=== PATIENT | female | born 1945 | race Caucasian/White ===

== ENCOUNTER 2018-05-20 22:14 | Inpatient (IN) | payer SELFPAY ==
[2018-05-20 22:16] VITALS: BP 116/84; PULSE 108; RESP 18; TEMP 36.6; O2SAT 100; BMI 34.4
[2018-05-20 22:20] VITALS: RESP 18
--- NOTE | 2018-05-20 22:47 | EKG12_ITS ---
Test Reason : N/V Blood Pressure : / mmHG Vent. Rate : 096 BPM Atrial Rate : 277 BPM P-R Int : 000 ms QRS Dur : 086 ms QT Int : 328 ms P-R-T Axes : 000 021 -81 degrees QTc Int : 414 ms Atrial fibrillation T wave abnormality, consider inferior ischemia Abnormal ECG Confirmed by WILLIAM PEREZ, LEONOR ([id number]), science editor KACEY RUELAS ([id number]) on 05/23/2018 2:20:04 PM Referred By: KAREN Confirmed By:LEONOR THOMAS MD
--- NOTE | 2018-05-20 22:50 | ED.RN ---
NO OLD EKGS IN MUSE
[2018-05-20] MEDS: 0.9% Normal Saline 1,000 ML 1000 ML IV (22:55)
[2018-05-20 23:07] LABS: Absolute Lymphocyte Count 1.71 X10^3/ul (0.83-4.51); Absolute Neutrophil Count 6.8 X10^3/uL (2.0-7.7); Basophil# 0.01 X10^3/uL; Basophil% 0.1 % (0-1); Eosinophil# 0.01 X10^3/uL; Eosinophils% 0.1 % (0-5); Hematocrit 23.2 % (37-47); Hemoglobin 7.8 g/dl (12.0-15.0); Lymphocyte # 1.71 X10^3/ul (4.0); Lymphocyte % 18.8 % (19-41); Mean Corp Hgb Conc 33.6 g/gl (32-36); Mean Corpuscular Hgb 30.1 pg (27.0-32.0); Mean Corpuscular Volume 89.6 fL (81-99); Mean Platelet Vol. 9.8 fl (6.2-12.0); Monocyte# 0.57 X10^3/uL; Monocyte% 6.3 % (0-10); Neutrophil # 6.79 X10^3/uL (2.7-7.7); Neutrophil % 74.5 % (47-70); Platelet Count 137 K/mm3 (150-450); RBC Distribution Width SD 49.3 fl (35.1-43.9); Red Blood Count 2.59 M/mm3 (4.2-5.4); White Blood Count 9.1 K/mm3 (4.4-11.0)
[2018-05-20 23:12] LABS: POSITIVE COUNT NO; POSITIVE DIFFERENTIAL NO; POSITIVE MORPHOLOGY NO
[2018-05-20 23:27] LABS: Mucous, Urine 0 SEEN /hpf (<or=2+); Red Blood Cells-Urine 0 SEEN /hpf (0-5)
[2018-05-20 23:30] LABS: Color, Urine Straw (Yellow); Glucose, Dipstick Normal (Normal); Ketone-Dipstick Negative (Negative); Leukocyte Esterase-Dipstick 25 /ul (Negative); Nitrite-Dipstick Negative (Negative); Occult Blood-Urine 10 /ul (Negative); Protein-Dipstick Negative (Negative); Specific Gravity, Urine 1.005 (1.002-1.030); Urine Bilirubin Dipstick Negative (Negative); Urine Clarity Clear (Clear); Urine Urobilinogen Normal (Normal); Urine pH 6.5 (5.0 - 8.0)
[2018-05-20 23:35] LABS: Bacteria RARE /hpf (None Seen); Squamous Epithelial Cells - UA 0-5 SEEN /hpf (5-10); White Blood Cells 0-5 SEEN /hpf (0-5)
--- NOTE | 2018-05-20 23:38 | RAD_ITS ---
HISTORY: patient has had nausea/vomiting/diarrhea and weakness for the past 2 days. patient called ems for low blood pressure. EXAM: XR Chest 2 Views: COMPARISON: None FINDINGS: AP chest with EKG leads in place. Borderline cardiomegaly. On the frontal view, right midlung mild linear opacity compatible with subsegmental atelectasis. No corresponding abnormality seen on the lateral view. No vascular congestion or pulmonary consolidation. No pleural effusion or pneumothorax. Atherosclerotic thoracic aorta. RAD/Chest PA and Lateral IMPRESSION: 1. Right midlung mild subsegmental atelectasis. 2. No CHF or pneumonia. at 0038 Reported and signed by: Noé Dunne MD Electronically Signed: Noé Dunne, at 0:36 EST Tel , Service support ,
[2018-05-20 23:40] LABS: ALB/GLOB Ratio 0.9 RATIO (0.9-2.4); AST(SGOT) 17 U/L (15-37); Alanine Aminotransfer ALT/SGPT 17 U/L (13-56); Albumin, Serum 2.7 g/dL (3.2-5.0); Alkaline Phosphatase 74 U/L (45-117); Anion Gap 9 (5-15); BUN 162 mg/dL (7-18); BUN/Creat Ratio 120.9 RATIO (10-20); Chloride 102 mmol/L (98-107); Creatinine, Serum 1.34 mg/dL (0.55-1.02); EST Glomerular Filtration Rate 41 mL/min (>60); Est Glom Filt Rate - Afr Amer 50 mL/min (>60); Estimated Creatinine Clearance 29.48 ml/min; Glucose 156 mg/dL (74-106); Lipase 454 U/L (73-393); Potassium 3.6 mmol/L (3.5-5.1); Protein, Total 5.7 g/dL (6.4-8.2); Sodium Level 138 mmol/L (136-145)
--- NOTE | 2018-05-20 23:43 | ED.RN ---
DR JONES NOTIFIED OF BUN RESULTS
--- NOTE | 2018-05-20 23:56 | CT_ITS ---
HISTORY: PT STATED N/V/D AND ABDOM PAIN X2 DAYS TECHNIQUE: Helically acquired images were obtained of the abdomen and pelvis without oral or IV contrast as per renal stone protocol. A radiation dose optimization technique was used for this scan. IV Contrast dosage and agent: None. Oral contrast: None. COMPARISON: None FINDINGS: Lower chest: Cardiomegaly with multichamber cardiac enlargement. No pericardial effusion or pleural effusion. The gallbladder contains numerous gallstones of varying size. No biliary dilatation identified. Limited non-infusion exam. The liver and pancreas show no CT abnormality. Spleen is normal in size and shows multiple small calcified granulomas. Both kidneys are normal in position. No renal or ureteral calculi and no hydronephrosis or hydroureter. The adrenal glands are not enlarged. Abdominal aorta is atherosclerotic and normal in caliber. No ascites or retroperitoneal lymphadenopathy. GI tract: No obstruction. Negative appendix. Diverticulosis coli. Pelvis: The uterus is normal in size. The pelvis shows no free fluid or lymphadenopathy. Urinary bladder appears normal. Bones: No acute osseous abnormality. Ventral abdominal wall: Chronic diastases recti with midline ventral hernia. CT/Abdomen/Pelvis without Cont IMPRESSION: 1. Cholelithiasis. No biliary dilatation or acute disease seen. 2. Cardiomegaly with multichamber enlargement. 3. Chronic diastases recti and additional chronic changes, as above. Individualized dose optimization techniques were used for this CT. at 0052 Reported and signed by: Noé Dunne MD Electronically Signed: Noé Dunne, at 0:50 EST Tel , Service support ,
[2018-05-21] VITALS (62 sets, daily range): BP systolic 64–114; BP diastolic 47–92; PULSE 98–144; RESP 12–25; TEMP 36.3–37.7; O2SAT 97–100; BMI 35.0; BMI 35.1
--- NOTE | 2018-05-21 00:31 | ED.DCSUM_ITS ---
- ER Visit Summary Date of Service: 05/21/18 Chief Complaint: Diarrhea lightheaded and weak. History of Present Illness: The patient is a 72 F who presents with generalized weakness. She states that since yesterday she has felt lightheaded weak and generally not well. She did have some diarrhea yesterday she states maybe about 10 episodes but only one today. She denies any nausea or vomiting. She complains of mild intermittent diffuse abdominal aching which is only mild. She has had some mild rhinorrhea but no other infectious symptoms. She denies fevers chest pain shortness of breath cough. She does complain of some muscle and joint aches. No history of prior similar symptoms. Physical Examination: Heart rate 108 vitals otherwise normal Moist mucous membranes Heart irregularly irregular and slightly tachycardic Lungs are clear Abdomen soft nontender nondistended Alert Test Results: EKG shows atrial fibrillation at a rate of 96. Labs returned notable for hemoglobin 7.8 platelets 137. BUN is 162 with a creatinine of 1.34. Lipase 454. Urinalysis unremarkable. INR 5.0. Chest x-ray shows mild atelectasis no CHF or pneumonia.. CT the abdomen and pelvis shows cholelithiasis and cardiomegaly and chronic changes no acute process. Emergency Department Course and Treatment: Laboratory workup initially obtained as above. With severely elevated BUN and anemia this was concerning for GI bleed. Patient had not noted any blood in her stool but did note that her stool appeared dark yesterday. Rectal exam showed grossly melanotic stool. 2 units of packed red blood cells were ordered. Patient got up to the bedside commode and became pale diaphoretic and had a near syncopal episode. Her heart rate increased to 140s and she developed hypotension. This improved after she was laid back in bed. IV vitamin K and FFP were ordered at this point as well. Patient was also started on a Protonix infusion and given a bolus. I spoke to Dr. Salgado and Dr. Elaine and patient will be admitted under the hospitalist service to the ICU. Discussed with the patient and family the need for anticoagulation reversal and associated risks and benefits. Treatment Plan: [] Disposition: Admit Impression: Upper GI bleed Anemia Supratherapeutic INR This note was generated with [employer] dictation software. It may contain incorrect words, spelling, and punctuation that were not noted in review of the chart prior to signing ED Disposition - Plan for ED Patient: Chief Complaint: Nausea/Vomiting/Diarrhea Referrals: Austin Singh DO [Primary Care Provider] -
[2018-05-21 00:57] LABS: Prothrombin Time (Protime)PT. 47.2 SECONDS (11.7-14.9)
--- NOTE | 2018-05-21 01:02 | ED.RN ---
LAB CALLED CRITICAL RESULT OF INR OF 5.[address] JONES NOTIFIED, NFO
--- NOTE | 2018-05-21 01:45 | PCM.HP.STD ---
Problem List (1) Acute blood loss anemia Status: Acute History of Present Illness Date of Admission: 05/21/18 Chief Complaint: weakness The patient is a 72 year old F with a significant history of hypertension; CHF; Afib on Coumadin who presented with weakness. Associated with her symptoms is lightheadedness that increases with getting up. Two days before her admission she had diarrhea with as many as 10 stools or more. A day before admission she had only one bowel movement. Her stools are black. She has nausea and a one-time episode of vomiting. Her vomitus was black. She denies any hematochezia. At the emergency department her blood pressure dropped significantly upon standing up. At emergency department her INR was 5. She received 10 mg IV vitamin K and was started on Protonix bolus and drip; 2 units of packed red blood cells and FFP was ordered from the emergency department. Emergency department doctor reported talking to Dr. Salgado, General Surgeon and Dr. Elaine, Customer Associate and patient was accepted for admission. Patient reports that the last time that she use NSAIDs was about 2 weeks ago. She denies taking aspirin. She denies any history of peptic ulcer disease. Past Medical History Past Medical History (Chronic Problems): Chronic Problems (Last Reviewed 12/10/17 @ 16:42 by Raghu Lee MD) Chronic diastolic (congestive) heart failure (Chronic) Hypertension (Chronic) Nonrheumatic mitral (valve) insufficiency (Chronic) Nonrheumatic tricuspid (valve) insufficiency (Chronic) Atrial enlargement, bilateral (Chronic) Dilated cardiomyopathy (Chronic) Atrial fibrillation (Chronic) Medical History: Medical History (Last Reviewed 05/21/18 @ 03:00 by Brayan Kearney MD) Chronic diastolic (congestive) heart failure (Chronic) I50.32 Hypertension (Chronic) I10 Nonrheumatic mitral (valve) insufficiency (Chronic) I34.0 Nonrheumatic tricuspid (valve) insufficiency (Chronic) I36.1 Atrial enlargement, bilateral (Chronic) I51.7 Dilated cardiomyopathy (Chronic) I42.0 Atrial fibrillation (Chronic) I48.91 Allergies No Known Allergies Allergy (Verified 05/20/18 22:26) Home Medications: Ambulatory Orders Medication Instructions Recorded metoprolol tartrate 100 mg tablet 100 mg PO BID 06/10/17 warfarin 2 mg tablet 4 mg PO .COMPLEX 06/10/17 spironolactone 50 mg tablet 50 mg PO QDAY #90 tab 12/10/17 furosemide 40 mg tablet 40 mg PO BID tab 05/20/18 Surgical History: Surgical History (Last Reviewed 05/21/18 @ 03:00 by Brayan Kearney MD) varicose vein surgery (Resolved) Lives: Spouse/ Significant Other Smoking Status: Never smoker - *Family History Maternal Family History: Family History (Last Updated 05/21/18 @ 03:01 by Brayan Kearney MD) Father CAD (coronary artery disease) Sudden cardiac Mother CVA (cerebral vascular accident) Paternal Family History: Family History (Last Updated 05/21/18 @ 03:01 by Brayan Kearney MD) Father CAD (coronary artery disease) Sudden cardiac Mother CVA (cerebral vascular accident) Review of Systems Constitutional: Denies: Chills, Fever, Weight Change HEENT: Denies: Head Aches, Sinus Congestion, Sinus Drainage Cardiovascular: Denies: Chest Pain, Palpitations Respiratory: Denies: Cough, Shortness of breath at rest, Sputum production Gastrointestinal: Reports: Abdominal Pain, Nausea, Melena, Vomiting Genitourinary: Denies: Dysuria Musculoskeletal: Denies: Joint Pain, Joint Tenderness Skin: Denies: Rash, Wounds Neurological: Denies: Numbness, Tingling, Focal weakness Psychiatric: Denies: Anxiety, Depression, Homicidal Ideations, Suicidal Ideations Hematologic/ Lymphatic: Denies: Easy Bruising, Easy Bleeding VTE Information - Inpt Only VTE Present on Admission: No VTE Mechan Device Prophylaxis: SCD's VTE Pharm Prophylaxis ordered?: No Patient Problems: Active and Suspected Problems (Last Reviewed 12/10/17 @ 16:42 by Raghu Lee MD) Acute blood loss anemia (Acute) - Physical Exam General: Alert, Oriented x3, Cooperative HEENT: Atraumatic, PERRLA, EOMI, Normocephalic Neck: Supple, No JVD, Negative Carotid Bruits Lungs: Clear to auscultation, Normal air movement Cardiovascular: No murmurs, Irregular Rate Abdomen: Bowel Sounds Present, Soft, Non Tender, - - Rectal exams showed no masses or gross bleeding. Melena Extremities: No edema, Capillary Refill Less than 3 Seconds Skin: - - left lower leg with erythema and scales (Patient states it is chronic) Musculoskeletal: No Tenderness to Palpation of Joints or Extremities Neurological: Cranial nerves II-XII grossly intact Psych/Mental Status: Normal Affect, Appropriate Vital Signs Temp Pulse Resp BP Pulse Ox 98 F 101 H 19 H 109/63 100 05/20/18 22:16 05/21/18 01:41 05/21/18 01:41 05/21/18 01:41 05/21/18 01:41 Oxygen Delivery Method Room Air Weight: 82.663 kg Body Mass Index (BMI) 34.4 Laboratory Tests Past 24 Hrs 05/20/18 05/20/18 05/20/18 22:25 22:25 22:25 WBC 9.1 RBC 2.59 L Hgb 7.8 L Hct 23.2 L MCV 89.6 MCH 30.1 MCHC 33.6 RDW 15.0 H RDW Differential 49.3 H Plt Count 137 L MPV 9.8 Immature Gran % (Auto) 0.200 Neut % (Auto) 74.5 H Lymph % (Auto) 18.8 L [place] % (Auto) 6.3 Eos % (Auto) 0.1 Baso % (Auto) 0.1 Absolute Neuts (auto) 6.8 Absolute Lymphs (auto) 1.71 Total Counted Not Reportable PT 47.2 H INR 5.0 H* Sodium 138 Potassium 3.6 Chloride 102 Carbon Dioxide 27.0 Anion Gap 9 BUN 162 H* Creatinine 1.34 H Estim Creat Clear Calc 29.48 Est GFR (MDRD) Af Amer 50 L Est GFR (MDRD) Non-Af 41 L BUN/Creatinine Ratio 120.9 H Glucose 156 H Calcium 8.0 L Total Bilirubin 0.80 AST 17 ALT 17 Alkaline Phosphatase 74 Total Protein 5.7 L Albumin 2.7 L Globulin 3.0 Albumin/Globulin Ratio 0.9 Lipase 454 H Urine Color Urine Clarity Urine pH Ur Specific [place] Urine Protein Urine Glucose (UA) Urine Ketones Urine Occult Blood Urine Nitrite Urine Bilirubin Urine Urobilinogen Ur Leukocyte Esterase Urine RBC Urine WBC Ur Squamous Epith Cells Urine Bacteria Urine Mucus Blood Type Antibody Screen Crossmatch 05/20/18 05/20/18 23:23 23:58 WBC RBC Hgb Hct MCV MCH MCHC RDW RDW Differential Plt Count MPV Immature Gran % (Auto) Neut % (Auto) Lymph % (Auto) [place] % (Auto) Eos % (Auto) Baso % (Auto) Absolute Neuts (auto) Absolute Lymphs (auto) Total Counted PT INR Sodium Potassium Chloride Carbon Dioxide Anion Gap BUN Creatinine Estim Creat Clear Calc Est GFR (MDRD) Af Amer Est GFR (MDRD) Non-Af BUN/Creatinine Ratio Glucose Calcium Total Bilirubin AST ALT Alkaline Phosphatase Total Protein Albumin Globulin Albumin/Globulin Ratio Lipase Urine Color Straw Urine Clarity Clear Urine pH 6.5 Ur Specific [place] 1.005 Urine Protein Negative Urine Glucose (UA) Normal Urine Ketones Negative Urine Occult Blood 10 H Urine Nitrite Negative Urine Bilirubin Negative Urine Urobilinogen Normal Ur Leukocyte Esterase 25 H Urine RBC 0 SEEN Urine WBC 0-5 SEEN Ur Squamous Epith Cells 0-5 SEEN Urine Bacteria RARE Urine Mucus 0 SEEN Blood Type A NEGATIVE Antibody Screen NEGATIVE Crossmatch See Detail Assessment/Plan All Active Problems (Last Reviewed 12/10/17 @ 16:42 by Rgahu Lee MD) Acute blood loss anemia (Acute) varicose vein surgery (Resolved) The patient is a 72 year old F with a significant history of hypertension; CHF; Afib on Coumadin with acute blood loss anemia and severely elevated BUN consistent with likely upper GI bleed. Acute blood loss anemia Admitted to the ICU. With elevated BUN; and melena with probable coffee-ground emesis this is likely upper GI blood loss. Received Protonix bolus and drip at emergency department. Protonix continued. H&H and INR in a.m. about which time packed red blood cells and FFP would have finished infusing. Trend blood pressures. Home laxis; Aldactone; metoprolol and Coumadin on hold. Occult blood for stools ordered. Customer Associate consult to optimize management. General surgery consult to evaluate for endoscopy. Elevated creatinine Differential diagnosis include acute GI bleed; CKD; pre-renal ROSANA due to relative hypotension from acute GI bleed. Management of acute blood loss as above. Trend BMP. Hypertension Metoprolol, Aldactone and Lasix held due to relative hypotension secondary to bleeding. Trend blood pressures. A. fib Patient controlled A. fib. Metoprolol and warfarin held due to relative hypotension and bleeding. CHF Aldactone and Lasix on hold secondary to relative hypotension from acute blood loss anemia. DVT prophylaxis No chemical thromboprophylaxis due to bleeding SCD ordered. Code Visit Inpatient E&M: 52385 Init Hosp L3
[2018-05-21] MEDS: 0.9% Normal Saline 1,000 ML 100 ML IV (04:30)
[2018-05-21 06:05] LABS: Hemoglobin 7.3 g/dl (12.0-15.0)
[2018-05-21 08:19] LABS: Anion Gap 9 (5-15); BUN 131 mg/dL (7-18); BUN/Creat Ratio 109.2 RATIO (10-20); Chloride 111 mmol/L (98-107); EST Glomerular Filtration Rate 47 mL/min (>60); Est Glom Filt Rate - Afr Amer 57 mL/min (>60); Estimated Creatinine Clearance 32.92 ml/min; Glucose 146 mg/dL (74-106); Potassium 3.6 mmol/L (3.5-5.1); Sodium Level 145 mmol/L (136-145)
[2018-05-21] MEDS: Lactated Ringers 1,000 ML 999 ML IV (09:31)
[2018-05-21] MEDS: fentaNYL 100 MCG/2 ML Ampul 25 MCG IV ×2 (09:31→22:39)
--- NOTE | 2018-05-21 10:01 | PCM.CONS.GEN ---
Problem List (1) Acute blood loss anemia Status: Acute (2) GI bleed Status: Acute Qualifiers: GI bleed type/associated pathology: unspecified gastrointestinal hemorrhage type Qualified Code(s): K92.2 - Gastrointestinal hemorrhage, unspecified Reason for Consult Date of Consultation: 05/21/18 History of Present Illness: The patient is a 72 year old F with a significant history of hypertension; CHF; Afib on Coumadin who presented with weakness. Associated with her symptoms is lightheadedness that increases with getting up. Two days before her admission she had diarrhea with as many as 10 stools or more. A day before admission she had only one bowel movement. Her stools are black. She has nausea and a one-time episode of vomiting. Her vomitus was black. She denies any hematochezia. At the emergency department her blood pressure dropped significantly upon standing up. At emergency department her INR was 5. She received 10 mg IV vitamin K and was started on Protonix bolus and drip; 2 units of packed red blood cells and FFP was ordered from the emergency department. While in the ICU she is received FFP as well as other packed red blood cells. She remains tachycardic and slightly hypotensive. She is complaining of some epigastric abdominal pain. She has not had any bowel movements while in the intensive care unit. We do not have any repeat lab work 4 hours her hemoglobin and INR. Past Medical History Past Medical History (Chronic Problems): Chronic Problems (Last Reviewed 05/21/18 @ 10:06 by Chester Salgado MD) Chronic diastolic (congestive) heart failure (Chronic) Hypertension (Chronic) Nonrheumatic mitral (valve) insufficiency (Chronic) Nonrheumatic tricuspid (valve) insufficiency (Chronic) Atrial enlargement, bilateral (Chronic) Dilated cardiomyopathy (Chronic) Atrial fibrillation (Chronic) Medical History: Medical History (Last Reviewed 05/21/18 @ 10:06 by Chester Salgado MD) Chronic diastolic (congestive) heart failure (Chronic) I50.32 Hypertension (Chronic) I10 Nonrheumatic mitral (valve) insufficiency (Chronic) I34.0 Nonrheumatic tricuspid (valve) insufficiency (Chronic) I36.1 Atrial enlargement, bilateral (Chronic) I51.7 Dilated cardiomyopathy (Chronic) I42.0 Atrial fibrillation (Chronic) I48.91 Allergies No Known Allergies Allergy (Verified 05/20/18 22:26) Home Medications: Ambulatory Orders Medication Instructions Recorded metoprolol tartrate 100 mg tablet 100 mg PO BID 06/10/17 warfarin 2 mg tablet 4 mg PO .COMPLEX 06/10/17 spironolactone 50 mg tablet 50 mg PO QDAY #90 tab 12/10/17 furosemide 40 mg tablet 40 mg PO BID tab 05/20/18 Surgical History: Surgical History (Last Reviewed 05/21/18 @ 10:06 by Chester Salgado MD) varicose vein surgery (Resolved) Lives: Spouse/ Significant Other Smoking Status: Never smoker - *Family History Maternal Family History: Family History (Last Updated 05/21/18 @ 03:01 by Brayan Kearney MD) Father CAD (coronary artery disease) Sudden cardiac Mother CVA (cerebral vascular accident) Paternal Family History: Family History (Last Updated 05/21/18 @ 03:01 by Brayan Kearney MD) Father CAD (coronary artery disease) Sudden cardiac Mother CVA (cerebral vascular accident) Review of Systems Constitutional: Denies: Chills, Fever, Weight Change Eyes: Denies: Blurred vision, Pain, Redness, Vision Change HEENT: Denies: Dysphasia, Ear Pain, Eye Pain, Head Aches, Hearing Changes, Sore Throat Cardiovascular: Denies: Chest Pain, Chest Pressure, Chest Tightness, Palpitations Respiratory: Denies: Cough, Hemoptysis, Shortness of breath at rest, Shortness of breath upon exertion, Wheezing Gastrointestinal: Reports: Abdominal Pain, Melena Genitourinary: Denies: Dysuria, Frequency, Hematuria, Urgency Musculoskeletal: Denies: Joint Pain Patient Problems: Active and Suspected Problems (Last Reviewed 05/21/18 @ 10:06 by Chester Salgado MD) Acute blood loss anemia (Acute) GI bleed (Acute) - Physical Exam General: Alert, Oriented x3, - - Patient does have a pale look about her. Oral: Moist Mucosa Lungs: Clear to auscultation Cardiovascular: Regular rate, Tachycardic Abdomen: Bowel Sounds Present, Soft, Tender - He does have some minimal tenderness in the upper abdominal area. But there is no rebound guarding and peritoneal signs identified Extremities: No clubbing, No cyanosis, No edema Skin: No rashes, No breakdown Vital Signs Temp Pulse Resp BP Pulse Ox 98.8 F 131 H 17 94/54 L 100 05/21/18 09:26 05/21/18 09:26 05/21/18 09:26 05/21/18 09:26 05/21/18 09:26 Oxygen Delivery Method Room Air Weight: 185 lb 10.067 oz Body Mass Index (BMI) 35.0 Intake and Output for Last 24 Hours 05/19/18 05/20/18 05/21/18 23:59 23:59 23:59 Intake Total 982 / 982 Balance 982 / 982 Microbiology Past 72 Hours 05/21/18 02:23 Stool Occult Blood (RAMANA) - Final Stool Laboratory Tests Past 24 Hrs 05/20/18 05/20/18 05/20/18 22:25 22:25 22:25 WBC 9.1 RBC 2.59 L Hgb 7.8 L Hct 23.2 L MCV 89.6 MCH 30.1 MCHC 33.6 RDW 15.0 H RDW Differential 49.3 H Plt Count 137 L MPV 9.8 Immature Gran % (Auto) 0.200 Neut % (Auto) 74.5 H Lymph % (Auto) 18.8 L [place] % (Auto) 6.3 Eos % (Auto) 0.1 Baso % (Auto) 0.1 Absolute Neuts (auto) 6.8 Absolute Lymphs (auto) 1.71 Total Counted Not Reportable PT 47.2 H INR 5.0 H* Sodium 138 Potassium 3.6 Chloride 102 Carbon Dioxide 27.0 Anion Gap 9 BUN 162 H* Creatinine 1.34 H Estim Creat Clear Calc 29.48 Est GFR (MDRD) Af Amer 50 L Est GFR (MDRD) Non-Af 41 L BUN/Creatinine Ratio 120.9 H Glucose 156 H Calcium 8.0 L Total Bilirubin 0.80 AST 17 ALT 17 Alkaline Phosphatase 74 Total Protein 5.7 L Albumin 2.7 L Globulin 3.0 Albumin/Globulin Ratio 0.9 Lipase 454 H Urine Color Urine Clarity Urine pH Ur Specific [place] Urine Protein Urine Glucose (UA) Urine Ketones Urine Occult Blood Urine Nitrite Urine Bilirubin Urine Urobilinogen Ur Leukocyte Esterase Urine RBC Urine WBC Ur Squamous Epith Cells Urine Bacteria Urine Mucus Blood Type Antibody Screen Crossmatch 05/20/18 05/20/18 05/21/18 23:23 23:58 05:45 WBC RBC Hgb 7.3 L Hct 22.0 L MCV MCH MCHC RDW RDW Differential Plt Count MPV Immature Gran % (Auto) Neut % (Auto) Lymph % (Auto) [place] % (Auto) Eos % (Auto) Baso % (Auto) Absolute Neuts (auto) Absolute Lymphs (auto) Total Counted PT INR Sodium Potassium Chloride Carbon Dioxide Anion Gap BUN Creatinine Estim Creat Clear Calc Est GFR (MDRD) Af Amer Est GFR (MDRD) Non-Af BUN/Creatinine Ratio Glucose Calcium Total Bilirubin AST ALT Alkaline Phosphatase Total Protein Albumin Globulin Albumin/Globulin Ratio Lipase Urine Color Straw Urine Clarity Clear Urine pH 6.5 Ur Specific [place] 1.005 Urine Protein Negative Urine Glucose (UA) Normal Urine Ketones Negative Urine Occult Blood 10 H Urine Nitrite Negative Urine Bilirubin Negative Urine Urobilinogen Normal Ur Leukocyte Esterase 25 H Urine RBC 0 SEEN Urine WBC 0-5 SEEN Ur Squamous Epith Cells 0-5 SEEN Urine Bacteria RARE Urine Mucus 0 SEEN Blood Type A NEGATIVE Antibody Screen NEGATIVE Crossmatch See Detail 05/21/18 08:00 WBC RBC Hgb Hct MCV MCH MCHC RDW RDW Differential Plt Count MPV Immature Gran % (Auto) Neut % (Auto) Lymph % (Auto) [place] % (Auto) Eos % (Auto) Baso % (Auto) Absolute Neuts (auto) Absolute Lymphs (auto) Total Counted PT INR Sodium 145 Potassium 3.6 Chloride 111 H Carbon Dioxide 25.0 Anion Gap 9 BUN 131 H* Creatinine 1.20 H Estim Creat Clear Calc 32.92 Est GFR (MDRD) Af Amer 57 L Est GFR (MDRD) Non-Af 47 L BUN/Creatinine Ratio 109.2 H Glucose 146 H Calcium 8.0 L Total Bilirubin AST ALT Alkaline Phosphatase Total Protein Albumin Globulin Albumin/Globulin Ratio Lipase Urine Color Urine Clarity Urine pH Ur Specific [place] Urine Protein Urine Glucose (UA) Urine Ketones Urine Occult Blood Urine Nitrite Urine Bilirubin Urine Urobilinogen Ur Leukocyte Esterase Urine RBC Urine WBC Ur Squamous Epith Cells Urine Bacteria Urine Mucus Blood Type Antibody Screen Crossmatch Assessment/Plan All Active Problems (Last Reviewed 05/21/18 @ 10:06 by Chester Salgado MD) Acute blood loss anemia (Acute) GI bleed (Acute) varicose vein surgery (Resolved) I have spoken to Dr. Elaine and he is in the process of correcting her anticoagulation. Providing that we can stabilize her and get her anticoagulation turnaround I am going to perform an upper endoscopy on her hopefully around 1:00 today. We may defer this till tomorrow if further blood products and/or anticoagulation reversal agents need to be administered. Risk benefits to the procedure have been reviewed in great detail with the patient. All questions asked of been answered. She agrees to proceed.
[2018-05-21 12:52] LABS: International Normalized Ratio 1.3; Prothrombin Time (Protime)PT. 16.6 SECONDS (11.7-14.9)
--- NOTE | 2018-05-21 12:52 | NURSING ---
1240 Dr. Salgado signed consent. Dr. Elaine administered propofol. Throat spray administered by Dr. Salgado. EGD from [id number].
--- NOTE | 2018-05-21 12:59 | PCM.CON.CC ---
Problem List (1) Acute blood loss anemia Status: Acute (2) GI bleed Status: Acute Qualifiers: GI bleed type/associated pathology: unspecified gastrointestinal hemorrhage type Qualified Code(s): K92.2 - Gastrointestinal hemorrhage, unspecified (3) Chronic diastolic (congestive) heart failure Status: Chronic (4) Hypertension Status: Chronic Qualifiers: Hypertension type: essential hypertension Qualified Code(s): I10 - Essential (primary) hypertension; I10 - Essential (primary) hypertension; I10 - Essential (primary) hypertension (5) Nonrheumatic mitral (valve) insufficiency Status: Chronic (6) Nonrheumatic tricuspid (valve) insufficiency Status: Chronic (7) Atrial enlargement, bilateral Status: Chronic (8) Atrial fibrillation Status: Chronic Qualifiers: Atrial fibrillation type: chronic Qualified Code(s): I48.2 - Chronic atrial fibrillation; I48.2 - Chronic atrial fibrillation; I48.2 - Chronic atrial fibrillation; I48.2 - Chronic atrial fibrillation Reason for Consult Date of Consultation: 05/21/18 - Late entry Reason for Consultation: Acute GI bleed History of Present Illness: The patient is a 72 year old F, with past medical history listed below, who presented to [facility] on 05/21/2018 secondary to diarrhea, lightheadedness and weakness. Patient reportedly has had 2 weeks of abdominal pain, but started to develop melena approximately 1 week ago. Patient states on the day of presentation she had had 10 episodes of diarrhea in the last 24 hours. Patient denied any concomitant nausea, vomiting or dyspnea. Patient has had some mild rhinorrhea recently, but no cough or chest pain. Patient is on Coumadin therapy at baseline secondary to A. fib. On presentation to the emergency room, patient was noted to be tachycardic with a nondistended, nontender abdomen. Laboratory workup showed a hemoglobin of 7.8, slightly elevated creatinine of 1.34, BUN of 162 and INR of 5. Patient was given vitamin K, FFP and transferred to the intensive care unit. On my evaluation this morning, patient was conversant. Patient has received a total of 2 units of packed red blood cells and FFP. Patient has had elevated heart rates into the 140s. Patient was given 1 L of lactated Ringer's with minimal improvement. Past Medical History Past Medical History (Chronic Problems): Chronic Problems (Last Reviewed 05/21/18 @ 10:06 by Chester Salgado MD) Chronic diastolic (congestive) heart failure (Chronic) Hypertension (Chronic) Nonrheumatic mitral (valve) insufficiency (Chronic) Nonrheumatic tricuspid (valve) insufficiency (Chronic) Atrial enlargement, bilateral (Chronic) Dilated cardiomyopathy (Chronic) Atrial fibrillation (Chronic) Medical History: Medical History (Last Reviewed 05/21/18 @ 10:06 by Chester Salgado MD) Chronic diastolic (congestive) heart failure (Chronic) I50.32 Hypertension (Chronic) I10 Nonrheumatic mitral (valve) insufficiency (Chronic) I34.0 Nonrheumatic tricuspid (valve) insufficiency (Chronic) I36.1 Atrial enlargement, bilateral (Chronic) I51.7 Dilated cardiomyopathy (Chronic) I42.0 Atrial fibrillation (Chronic) I48.91 Allergies No Known Allergies Allergy (Verified 05/20/18 22:26) Home Medications: Ambulatory Orders Medication Instructions Recorded metoprolol tartrate 100 mg tablet 100 mg PO BID 06/10/17 warfarin 2 mg tablet 4 mg PO .COMPLEX 06/10/17 spironolactone 50 mg tablet 50 mg PO QDAY #90 tab 12/10/17 furosemide 40 mg tablet 40 mg PO BID tab 05/20/18 Surgical History: Surgical History (Last Reviewed 05/21/18 @ 10:06 by Chester Salgado MD) varicose vein surgery (Resolved) Lives: Spouse/ Significant Other Smoking Status: Never smoker - *Family History Maternal Family History: Family History (Last Updated 05/21/18 @ 03:01 by Brayan Kearney MD) Father CAD (coronary artery disease) Sudden cardiac Mother CVA (cerebral vascular accident) Paternal Family History: Family History (Last Updated 05/21/18 @ 03:01 by Brayan Kearney MD) Father CAD (coronary artery disease) Sudden cardiac Mother CVA (cerebral vascular accident) Review of Systems Comment: See HPI, otherwise negative x10 systems Patient Problems: Active and Suspected Problems (Last Reviewed 05/21/18 @ 10:06 by Chester Salgado MD) Acute blood loss anemia (Acute) GI bleed (Acute) Objective: CONSCIOUS SEDATION REPORT DESCRIPTION OF PROCEDURE: After confirmation of informed consent, the patient's anesthesia plan was reviewed in detail. Propofol was chosen. Risks and benefits were reviewed and the patient agreed to proceed. At 12:42 PM, the patient was given 30 mg of propofol. The patient required a total of 70 mg of propofol etomidate throughout the procedure to achieve appropriate sedation. The patient was monitored until 12:48 PM the patient tolerated the procedure well. Patient was found to have an inherent clot in the area of the duodenal bulb. No interventions were undertaken by surgery. COMPLICATIONS: None ESTIMATED BLOOD LOSS: None RECOMMENDATIONS: Okay to recover in usual fashion. - Physical Exam General: Alert, Oriented x3, Cooperative, No apparent distress, - - Appears stated age. No conversational dyspnea. HEENT: Atraumatic, PERRLA, EOMI, Normocephalic, - - Pale mucous membranes. No scleral icterus or injection noted. Oral: No Gingival or Mucosal Lesions/ Ulcerations, Dry Mucosa, - - Edentulous. Pale membranes. Neck: Supple, No JVD, No Nodes, Trachea Midline Lungs: Clear to auscultation, Normal air movement, No rhonchi, No wheeze, No rales Cardiovascular: Normal S1, Normal S2, No murmurs, No rub noted, No Gallop, Tachycardic Abdomen: Bowel Sounds Present, Soft, Non Tender, Non-Distended, Obese Extremities: No clubbing, No cyanosis, No edema, Capillary Refill Less than 3 Seconds Skin: No rashes, No breakdown Musculoskeletal: No Tenderness to Palpation of Joints or Extremities Lymphatic: No Cervical, Supraclavicular, or Inguinal Adenopathy Neurological: Cranial nerves II-XII grossly intact, Neuro grossly intact, Motor Exam 5/5 strength throughout, Sensory exam intact to light touch and pain Psych/Mental Status: Alert and oriented to time, place, person, mood and affect Vital Signs Temp Pulse Resp BP Pulse Ox 37.2 C 120 H 14 87/59 L 100 05/21/18 12:30 05/21/18 12:50 05/21/18 12:50 05/21/18 12:50 05/21/18 12:50 Oxygen Flow Rate (L/min) 3 Oxygen Delivery Method Mechanical Ventilator Weight: 84.2 kg Body Mass Index (BMI) 35.0 Intake and Output for Last 24 Hours 05/19/18 05/20/18 05/21/18 23:59 23:59 23:59 Intake Total 1182 / 1182 Balance 1182 / 1182 Microbiology Past 72 Hours 05/21/18 02:23 Stool Occult Blood (RAMANA) - Final Stool Laboratory Tests Past 24 Hrs 05/20/18 05/20/18 05/20/18 22:25 22:25 22:25 WBC 9.1 RBC 2.59 L Hgb 7.8 L Hct 23.2 L MCV 89.6 MCH 30.1 MCHC 33.6 RDW 15.0 H RDW Differential 49.3 H Plt Count 137 L MPV 9.8 Immature Gran % (Auto) 0.200 Neut % (Auto) 74.5 H Lymph % (Auto) 18.8 L Potter % (Auto) 6.3 Eos % (Auto) 0.1 Baso % (Auto) 0.1 Absolute Neuts (auto) 6.8 Absolute Lymphs (auto) 1.71 Total Counted Not Reportable PT 47.2 H INR 5.0 H* APTT Sodium 138 Potassium 3.6 Chloride 102 Carbon Dioxide 27.0 Anion Gap 9 BUN 162 H* Creatinine 1.34 H Estim Creat Clear Calc 29.48 Est GFR (MDRD) Af Amer 50 L Est GFR (MDRD) Non-Af 41 L BUN/Creatinine Ratio 120.9 H Glucose 156 H Calcium 8.0 L Total Bilirubin 0.80 AST 17 ALT 17 Alkaline Phosphatase 74 Total Protein 5.7 L Albumin 2.7 L Globulin 3.0 Albumin/Globulin Ratio 0.9 Lipase 454 H Urine Color Urine Clarity Urine pH Ur Specific [place] Urine Protein Urine Glucose (UA) Urine Ketones Urine Occult Blood Urine Nitrite Urine Bilirubin Urine Urobilinogen Ur Leukocyte Esterase Urine RBC Urine WBC Ur Squamous Epith Cells Urine Bacteria Urine Mucus Blood Type Antibody Screen Crossmatch 05/20/18 05/20/18 05/21/18 23:23 23:58 05:45 WBC RBC Hgb 7.3 L Hct 22.0 L MCV MCH MCHC RDW RDW Differential Plt Count MPV Immature Gran % (Auto) Neut % (Auto) Lymph % (Auto) Potter % (Auto) Eos % (Auto) Baso % (Auto) Absolute Neuts (auto) Absolute Lymphs (auto) Total Counted PT INR APTT Sodium Potassium Chloride Carbon Dioxide Anion Gap BUN Creatinine Estim Creat Clear Calc Est GFR (MDRD) Af Amer Est GFR (MDRD) Non-Af BUN/Creatinine Ratio Glucose Calcium Total Bilirubin AST ALT Alkaline Phosphatase Total Protein Albumin Globulin Albumin/Globulin Ratio Lipase Urine Color Straw Urine Clarity Clear Urine pH 6.5 Ur Specific [place] 1.005 Urine Protein Negative Urine Glucose (UA) Normal Urine Ketones Negative Urine Occult Blood 10 H Urine Nitrite Negative Urine Bilirubin Negative Urine Urobilinogen Normal Ur Leukocyte Esterase 25 H Urine RBC 0 SEEN Urine WBC 0-5 SEEN Ur Squamous Epith Cells 0-5 SEEN Urine Bacteria RARE Urine Mucus 0 SEEN Blood Type A NEGATIVE Antibody Screen NEGATIVE Crossmatch See Detail 05/21/18 05/21/18 08:00 12:00 WBC RBC Hgb Hct MCV MCH MCHC RDW RDW Differential Plt Count MPV Immature Gran % (Auto) Neut % (Auto) Lymph % (Auto) Potter % (Auto) Eos % (Auto) Baso % (Auto) Absolute Neuts (auto) Absolute Lymphs (auto) Total Counted PT 16.6 H INR 1.3 APTT 29.0 Sodium 145 Potassium 3.6 Chloride 111 H Carbon Dioxide 25.0 Anion Gap 9 BUN 131 H* Creatinine 1.20 H Estim Creat Clear Calc 32.92 Est GFR (MDRD) Af Amer 57 L Est GFR (MDRD) Non-Af 47 L BUN/Creatinine Ratio 109.2 H Glucose 146 H Calcium 8.0 L Total Bilirubin AST ALT Alkaline Phosphatase Total Protein Albumin Globulin Albumin/Globulin Ratio Lipase Urine Color Urine Clarity Urine pH Ur Specific [place] Urine Protein Urine Glucose (UA) Urine Ketones Urine Occult Blood Urine Nitrite Urine Bilirubin Urine Urobilinogen Ur Leukocyte Esterase Urine RBC Urine WBC Ur Squamous Epith Cells Urine Bacteria Urine Mucus Blood Type Antibody Screen Crossmatch Clinical Impression(s) from Imaging Studies Chest X-Ray 05/20/18 23:38 IMPRESSION: 1. Right midlung mild subsegmental atelectasis. 2. No CHF or pneumonia. at 0038 Reported and signed by: Noé Dunne MD Electronically Signed: Noé Dunne, at 0:36 EST Tel , Service support , Abdomen/Pelvis CT 05/20/18 23:56 IMPRESSION: 1. Cholelithiasis. No biliary dilatation or acute disease seen. 2. Cardiomegaly with multichamber enlargement. 3. Chronic diastases recti and additional chronic changes, as above. Individualized dose optimization techniques were used for this CT. at 0052 Reported and signed by: Noé Dunne MD Electronically Signed: Noé Dunne, at 0:50 EST Tel , Service support , Assessment/Plan Active and Suspected Problems (Last Reviewed 05/21/18 @ 10:06 by Chester Salgado MD) Acute blood loss anemia (Acute) GI bleed (Acute) RECOMMENDATIONS: 1. Serial H&H every 6 for 24 hours 2. Normalization of INR 3. Potentially reinitiate rate control once hemodynamically stable 4. Transfuse to keep H&H greater than 8 5. N.p.o. for now. Protonix drip. IMPRESSIONS: 1. Blood loss anemia secondary to duodenal ulcer Patient noted to have a duodenal ulcer with adherent clot on EGD. No interventions at this time. We will continue with Protonix drip. Patient likely transition to twice daily dosing tomorrow. Normalize INR. We will continue to transfuse packed red blood cells as necessary to keep H&H greater than 8. Cannot rule out the need for repeat endoscopy. 2. A. fib with RVR/chronic diastolic congestive heart failure Patient with hypotension and tachycardia. Antihypertensives and rate control medications have been held secondary to hypotension. We will continue to monitor. Judicious use of volume. Cannot exclude the need for Lasix therapy after blood volume. Continue to watch oxygenation. 3. Acute kidney injury Patient with mild increase in creatinine secondary to #1. Patient was significantly elevated BUN secondary to acute GI bleed. We will continue to monitor closely. No indication for renal replacement therapy at this time. 4. Advanced age/hypertension/valve insufficiency Complicates care, management, recovery and prognosis. Antihypertensives have been held secondary to acute condition. TIME: 35 minutes critical care time spent addressing patient's acute blood loss anemia, A. fib with RVR, acute kidney injury, review of all data and collaboration with care team (8 AM till 1 PM) Code Visit 9xxxx: [id number] Critical care first hour
--- NOTE | 2018-05-21 13:00 | OP.ENDO_ITS ---
Patient Name: Bhavna Wong Procedure Date: 05/21/2018 12:41 PM Date of : 1945 Age: 72 Procedure: Upper GI endoscopy Indications: Upper abdominal pain, Heme positive stool, Melena Providers: Chester Salgado MD Medicines: See the Anesthesia note for documentation of the administered medications Patient Profile: This is a 72 year old female. Refer to note in patient chart for documentation of history and physical. Complications: No immediate complications. Procedure: Pre-Anesthesia Assessment: - Prior to the procedure, a History and Physical was performed, and patient medications and allergies were reviewed. The patient's tolerance of previous anesthesia was also reviewed. The risks and benefits of the procedure and the sedation options and risks were discussed with the patient. All questions were answered, and informed consent was obtained. Prior Anticoagulants: The patient has taken no previous anticoagulant or antiplatelet agents. ASA Grade Assessment: IV - A patient with severe systemic disease that is a constant threat to life. After reviewing the risks and benefits, the patient was deemed in satisfactory condition to undergo the procedure. After obtaining informed consent, the endoscope was passed under direct vision. Throughout the procedure, the patient's blood pressure, pulse, and oxygen saturations were monitored continuously. The gastroscope was introduced through the mouth, and advanced to the second part of duodenum. The upper GI endoscopy was accomplished without difficulty. The patient tolerated the procedure well. Scope In: 12:45:41 PM Scope Out: 12:48:02 PM Total Procedure Duration Time 0 hours 2 minutes 21 seconds Findings: The examined esophagus was normal. The entire examined stomach was normal. One non-bleeding cratered duodenal ulcer with adherent clot was found in the first portion of the duodenum. The lesion was 5 mm in largest dimension. No biopsies or other specimens were collected for this exam. Impression: - Normal esophagus. - Normal stomach. - One non-bleeding duodenal ulcer with adherent clot. No specimens collected. Recommendation: - Observe patient in ICU for ongoing care. - Clear liquid diet. - Continue present medications. - Repeat upper endoscopy in 2 months for surveillance. - Return to my office in 1 week. Procedure Code(s): --- Professional --- 06766, Esophagogastroduodenoscopy, flexible, transoral; diagnostic, including collection of specimen(s) by brushing or washing, when performed (separate procedure) Diagnosis Code(s): --- Professional --- K26.4, Chronic or unspecified duodenal ulcer with hemorrhage R10.10, Upper abdominal pain, unspecified R19.5, Other fecal abnormalities K92.1, Melena (includes Hematochezia) CPT copyright 2017 [employer]. All rights reserved. The codes documented in this report are preliminary and upon arts and humanities council director review may be revised to meet current compliance requirements. MD Chester Santiago MD 05/21/2018 1:00:36 PM This report has been signed electronically. Number of Addenda: 0 Note Initiated On: 05/21/2018 12:41 PM
--- NOTE | 2018-05-21 13:22 | SUR.OPER ---
DR. JACOB PROVIDED SEDATION FOR ENDO CASE.
[2018-05-21 15:02] LABS: Hematocrit 21.8 % (37-47); Hemoglobin 7.5 g/dl (12.0-15.0)
[2018-05-21 21:08] LABS: Hemoglobin 7.8 g/dl (12.0-15.0)
[2018-05-21] MEDS: 0.9% NaCl Peripheral Flush Adult/Peds IV (22:39)
[2018-05-22] VITALS (27 sets, daily range): BP systolic 81–114; BP diastolic 52–83; PULSE 72–152; RESP 14–30; TEMP 36.7–37.2; O2SAT 97–100
[2018-05-22] MEDS: 0.9% NaCl Peripheral Flush Adult/Peds IV ×2 (02:07→05:38)
[2018-05-22] MEDS: fentaNYL 100 MCG/2 ML Ampul 25 MCG IV ×2 (02:07→05:38)
[2018-05-22 02:42] LABS: Hematocrit 23.7 % (37-47); Hemoglobin 8.1 g/dl (12.0-15.0)
[2018-05-22 05:41] LABS: Absolute Lymphocyte Count 1.08 X10^3/ul (0.83-4.51); Absolute Neutrophil Count 5.6 X10^3/uL (2.0-7.7); Basophil# 0.02 X10^3/uL; Basophil% 0.3 % (0-1); Eosinophil# 0.04 X10^3/uL; Eosinophils% 0.5 % (0-5); Hematocrit 25.3 % (37-47); Hemoglobin 8.6 g/dl (12.0-15.0); Lymphocyte # 1.08 X10^3/ul (4.0); Lymphocyte % 14.7 % (19-41); Mean Corpuscular Hgb 30.3 pg (27.0-32.0); Mean Corpuscular Volume 89.1 fL (81-99); Mean Platelet Vol. 9.5 fl (6.2-12.0); Monocyte# 0.54 X10^3/uL; Monocyte% 7.4 % (0-10); Neutrophil # 5.64 X10^3/uL (2.7-7.7); Platelet Count 90 K/mm3 (150-450); RBC Distribution Width CV 15.5 % (11.6-14.6); RBC Distribution Width SD 49.3 fl (35.1-43.9); Red Blood Count 2.84 M/mm3 (4.2-5.4); White Blood Count 7.3 K/mm3 (4.4-11.0)
[2018-05-22 05:48] LABS: Anion Gap 7 (5-15); BUN 58 mg/dL (7-18); BUN/Creat Ratio 58.2 RATIO (10-20); Calcium,Total 8.3 mg/dL (8.5-10.1); Chloride 117 mmol/L (98-107); EST Glomerular Filtration Rate 58 mL/min (>60); Est Glom Filt Rate - Afr Amer 71 mL/min (>60); Glucose 111 mg/dL (74-106); Potassium 3.8 mmol/L (3.5-5.1); Sodium Level 149 mmol/L (136-145)
[2018-05-22 05:59] LABS: POSITIVE COUNT NO; POSITIVE DIFFERENTIAL NO; POSITIVE MORPHOLOGY NO
--- NOTE | 2018-05-22 07:11 | PCM.PN.INT ---
Subjective: Patient did well overnight. Patient reports improvement in abdominal symptoms. No bowel movements have been reported. Patient has received a total of 4 units of packed red blood cells and remains n.p.o. Patient with no complaints General: Alert, Oriented x3, Cooperative, No apparent distress, Well developed, Well nourished, - - Speaking in full sentences. HEENT: Atraumatic, PERRLA, EOMI, Normocephalic, - - No scleral icterus or injection noted. Oral: Moist Mucosa, No Gingival or Mucosal Lesions/ Ulcerations Neck: Supple, No JVD, No Nodes, Trachea Midline Lungs: Clear to auscultation, Normal air movement, No rhonchi, No wheeze, No rales Cardiovascular: Normal S1, Normal S2, No murmurs, Irregular Rate, No rub noted, No Gallop, Tachycardic Abdomen: Bowel Sounds Present, Soft, Non Tender, Non-Distended Extremities: No clubbing, No cyanosis, No edema, Capillary Refill Less than 3 Seconds Skin: No rashes, No breakdown Musculoskeletal: No Tenderness to Palpation of Joints or Extremities Lymphatic: No Cervical, Supraclavicular, or Inguinal Adenopathy Neurological: Cranial nerves II-XII grossly intact, Neuro grossly intact, Motor Exam 5/5 strength throughout Psych/Mental Status: Alert and oriented to time, place, person, mood and affect Vital Signs Temp Pulse Resp BP Pulse Ox 36.7 C 114 H 16 90/61 99 05/22/18 06:00 05/22/18 06:00 05/22/18 06:00 05/22/18 06:00 05/22/18 06:00 Oxygen Flow Rate (L/min) 2 Oxygen Delivery Method Room Air Weight: 84.2 kg Body Mass Index (BMI) 35.0 Intake and Output for Last 24 Hours 05/20/18 05/21/18 05/22/18 23:59 23:59 23:59 Intake Total 4847 / 4847 1121 / 1121 Output Total 2375 / 2375 1000 / 1000 Balance 2472 / 2472 121 / 121 Labs (Last 48 Hours) 05/20/18 05/20/18 05/20/18 22:25 22:25 22:25 WBC 9.1 RBC 2.59 L Hgb 7.8 L Hct 23.2 L MCV 89.6 MCH 30.1 MCHC 33.6 RDW 15.0 H RDW Differential 49.3 H Plt Count 137 L MPV 9.8 Immature Gran % (Auto) 0.200 Neut % (Auto) 74.5 H Lymph % (Auto) 18.8 L [place] % (Auto) 6.3 Eos % (Auto) 0.1 Baso % (Auto) 0.1 Absolute Neuts (auto) 6.8 Absolute Lymphs (auto) 1.71 Total Counted Not Reportable PT 47.2 H INR 5.0 H* APTT Sodium 138 Potassium 3.6 Chloride 102 Carbon Dioxide 27.0 Anion Gap 9 BUN 162 H* Creatinine 1.34 H Estim Creat Clear Calc 29.48 Est GFR (MDRD) Af Amer 50 L Est GFR (MDRD) Non-Af 41 L BUN/Creatinine Ratio 120.9 H Glucose 156 H Calcium 8.0 L Total Bilirubin 0.80 AST 17 ALT 17 Alkaline Phosphatase 74 Total Protein 5.7 L Albumin 2.7 L Globulin 3.0 Albumin/Globulin Ratio 0.9 Lipase 454 H Urine Color Urine Clarity Urine pH Ur Specific [place] Urine Protein Urine Glucose (UA) Urine Ketones Urine Occult Blood Urine Nitrite Urine Bilirubin Urine Urobilinogen Ur Leukocyte Esterase Urine RBC Urine WBC Ur Squamous Epith Cells Urine Bacteria Urine Mucus Blood Type Antibody Screen Crossmatch 05/20/18 05/20/18 05/20/18 23:23 23:58 23:58 WBC RBC Hgb Hct MCV MCH MCHC RDW RDW Differential Plt Count MPV Immature Gran % (Auto) Neut % (Auto) Lymph % (Auto) [place] % (Auto) Eos % (Auto) Baso % (Auto) Absolute Neuts (auto) Absolute Lymphs (auto) Total Counted PT INR APTT Sodium Potassium Chloride Carbon Dioxide Anion Gap BUN Creatinine Estim Creat Clear Calc Est GFR (MDRD) Af Amer Est GFR (MDRD) Non-Af BUN/Creatinine Ratio Glucose Calcium Total Bilirubin AST ALT Alkaline Phosphatase Total Protein Albumin Globulin Albumin/Globulin Ratio Lipase Urine Color Straw Urine Clarity Clear Urine pH 6.5 Ur Specific [place] 1.005 Urine Protein Negative Urine Glucose (UA) Normal Urine Ketones Negative Urine Occult Blood 10 H Urine Nitrite Negative Urine Bilirubin Negative Urine Urobilinogen Normal Ur Leukocyte Esterase 25 H Urine RBC 0 SEEN Urine WBC 0-5 SEEN Ur Squamous Epith Cells 0-5 SEEN Urine Bacteria RARE Urine Mucus 0 SEEN Blood Type A NEGATIVE Antibody Screen NEGATIVE Crossmatch See Detail See Detail 05/20/18 05/21/18 05/21/18 23:58 05:45 08:00 WBC RBC Hgb 7.3 L Hct 22.0 L MCV MCH MCHC RDW RDW Differential Plt Count MPV Immature Gran % (Auto) Neut % (Auto) Lymph % (Auto) [place] % (Auto) Eos % (Auto) Baso % (Auto) Absolute Neuts (auto) Absolute Lymphs (auto) Total Counted PT INR APTT Sodium 145 Potassium 3.6 Chloride 111 H Carbon Dioxide 25.0 Anion Gap 9 BUN 131 H* Creatinine 1.20 H Estim Creat Clear Calc 32.92 Est GFR (MDRD) Af Amer 57 L Est GFR (MDRD) Non-Af 47 L BUN/Creatinine Ratio 109.2 H Glucose 146 H Calcium 8.0 L Total Bilirubin AST ALT Alkaline Phosphatase Total Protein Albumin Globulin Albumin/Globulin Ratio Lipase Urine Color Urine Clarity Urine pH Ur Specific [place] Urine Protein Urine Glucose (UA) Urine Ketones Urine Occult Blood Urine Nitrite Urine Bilirubin Urine Urobilinogen Ur Leukocyte Esterase Urine RBC Urine WBC Ur Squamous Epith Cells Urine Bacteria Urine Mucus Blood Type Antibody Screen Crossmatch See Detail 05/21/18 05/21/18 05/21/18 12:00 14:50 20:45 WBC RBC Hgb 7.5 L 7.8 L Hct 21.8 L 23.0 L MCV MCH MCHC RDW RDW Differential Plt Count MPV Immature Gran % (Auto) Neut % (Auto) Lymph % (Auto) [place] % (Auto) Eos % (Auto) Baso % (Auto) Absolute Neuts (auto) Absolute Lymphs (auto) Total Counted PT 16.6 H INR 1.3 APTT 29.0 Sodium Potassium Chloride Carbon Dioxide Anion Gap BUN Creatinine Estim Creat Clear Calc Est GFR (MDRD) Af Amer Est GFR (MDRD) Non-Af BUN/Creatinine Ratio Glucose Calcium Total Bilirubin AST ALT Alkaline Phosphatase Total Protein Albumin Globulin Albumin/Globulin Ratio Lipase Urine Color Urine Clarity Urine pH Ur Specific [place] Urine Protein Urine Glucose (UA) Urine Ketones Urine Occult Blood Urine Nitrite Urine Bilirubin Urine Urobilinogen Ur Leukocyte Esterase Urine RBC Urine WBC Ur Squamous Epith Cells Urine Bacteria Urine Mucus Blood Type Antibody Screen Crossmatch 05/22/18 05/22/18 05/22/18 02:00 05:10 05:10 WBC 7.3 RBC 2.84 L Hgb 8.1 L 8.6 L Hct 23.7 L 25.3 L MCV 89.1 MCH 30.3 MCHC 34.0 RDW 15.5 H RDW Differential 49.3 H Plt Count 90 L MPV 9.5 Immature Gran % (Auto) 0.100 Neut % (Auto) 77.0 H Lymph % (Auto) 14.7 L [place] % (Auto) 7.4 Eos % (Auto) 0.5 Baso % (Auto) 0.3 Absolute Neuts (auto) 5.6 Absolute Lymphs (auto) 1.08 Total Counted Not Reportable PT INR APTT Sodium 149 H Potassium 3.8 Chloride 117 H Carbon Dioxide 25.0 Anion Gap 7 BUN 58 H Creatinine 1.00 Estim Creat Clear Calc 39.50 Est GFR (MDRD) Af Amer 71 Est GFR (MDRD) Non-Af 58 L BUN/Creatinine Ratio 58.2 H Glucose 111 H Calcium 8.3 L Total Bilirubin AST ALT Alkaline Phosphatase Total Protein Albumin Globulin Albumin/Globulin Ratio Lipase Urine Color Urine Clarity Urine pH Ur Specific [place] Urine Protein Urine Glucose (UA) Urine Ketones Urine Occult Blood Urine Nitrite Urine Bilirubin Urine Urobilinogen Ur Leukocyte Esterase Urine RBC Urine WBC Ur Squamous Epith Cells Urine Bacteria Urine Mucus Blood Type Antibody Screen Crossmatch Microbiology 05/21/18 02:23 Stool Stool Occult Blood (RAMANA) - Final Medical Necessity - Tobacco Use Smoking Status: Never smoker Assessment/Plan All Active Problems (Last Reviewed 05/21/18 @ 10:06 by Chester Salgado MD) Acute blood loss anemia (Acute) GI bleed (Acute) varicose vein surgery (Resolved) RECOMMENDATIONS: 1. Spread out H&H 2. Continue to hold Coumadin therapy 3. Reinitiate baseline metoprolol 4. Transfuse to keep H&H greater than 8 5. Advance diet per surgery 6. Protonix to twice daily 7. Okay to leave the intensive care unit from my perspective IMPRESSIONS: 1. Blood loss anemia secondary to duodenal ulcer Patient noted to have a duodenal ulcer with adherent clot on EGD. No interventions at this time. Patient will be transitioned over to Protonix twice daily. Patient has a normal INR yesterday. No additional Coumadin has been given. Patient is doing well on room air and has received a total of 4 units of blood. Lasix has been on hold secondary to blood pressures. Advance diet per surgery recommendations 2. A. fib with RVR/chronic diastolic congestive heart failure She has blood pressure appears to be much improved compared to previous. This is likely secondary to resolution of GI bleed. Will reinitiate beta-jesus. Hold on Lasix therapy and spironolactone for now. Likely reinitiate these medications tomorrow. 3. Acute kidney injury Improving. Patient with mild increase in creatinine secondary to #1. Patient was significantly elevated BUN secondary to acute GI bleed. We will continue to monitor closely. No indication for renal replacement therapy at this time. 4. Advanced age/hypertension/valve insufficiency/hypernatremia/hyperchloremia Complicates care, management, recovery and prognosis. Antihypertensives have been held secondary to acute condition. Anticipate electrolyte abnormalities will improve once patient is able to take free water. Code Visit Inpatient E&M: 24642 [facility] L3
[2018-05-22] MEDS: Metoprolol Tartrate 100 MG Tablet PO ×2 (10:17→22:10)
[2018-05-22] MEDS: Pantoprazole Sodium 40 MG Tablet PO ×2 (10:17→22:10)
--- NOTE | 2018-05-22 10:45 | PN_ITS ---
Patient Problems: Active and Suspected Problems (Last Reviewed 05/21/18 @ 10:06 by Chester Salgado MD) Acute blood loss anemia (Acute) GI bleed (Acute) Subjective: Chief complaint: Follow-up after admission for GI bleed and acute blood loss anemia. Patient seen and examined. No acute events overnight. Today, she is feeling better, no more dizziness or lightheadedness. Denies chest pain or shortness of breath. She underwent upper EGD yesterday and she was found to have duodenal ulcer with adherent blood clot. She is tachycardic, and A. fib with RVR but she is asymptomatic. Other vital signs are stable. - Physical Exam General: Alert, Oriented x3, Cooperative, No apparent distress HEENT: Atraumatic, PERRLA, EOMI, Normocephalic Oral: Moist Mucosa, No Gingival or Mucosal Lesions/ Ulcerations Neck: Supple, No JVD, Negative Carotid Bruits, Trachea Midline, Thyroid Normal Size and Texture Lungs: Clear to auscultation, No rhonchi, No wheeze, No rales, Diminished Cardiovascular: Normal S1, Normal S2, No murmurs, PMI Normal, Irregular Rate, Tachycardic Abdomen: Bowel Sounds Present, Soft, Non Tender, Non-Distended, No Hepato-sp lenomegaly Extremities: No clubbing, No cyanosis, No edema Skin: No rashes, No breakdown Musculoskeletal: No Tenderness to Palpation of Joints or Extremities Lymphatic: No Cervical, Supraclavicular, or Inguinal Adenopathy Neurological: Cranial nerves II-XII grossly intact, Motor Exam 5/5 strength throughout Psych/Mental Status: Normal Affect, Appropriate, Alert and oriented to time, place, person, mood and affect Vital Signs Temp Pulse Resp BP Pulse Ox 98.1 F 141 H 22 H 93/73 100 05/22/18 06:00 05/22/18 10:17 05/22/18 09:00 05/22/18 10:17 05/22/18 09:00 Oxygen Flow Rate (L/min) 2 Oxygen Delivery Method Room Air Weight: 160 lb 11.472 oz Body Mass Index (BMI) 35.0 Intake and Output for Last 24 Hours 05/20/18 05/21/18 05/22/18 23:59 23:59 23:59 Intake Total 4847 / 4847 1121 / 1121 Output Total 2375 / 2375 1000 / 1000 Balance 2472 / 2472 121 / 121 Microbiology Past 72 Hours 05/21/18 02:23 Stool Occult Blood (RAMANA) - Final Stool Laboratory Tests Past 24 Hrs 05/20/18 05/20/18 05/20/18 23:58 23:58 23:58 WBC RBC Hgb Hct MCV MCH MCHC RDW RDW Differential Plt Count MPV Immature Gran % (Auto) Neut % (Auto) Lymph % (Auto) [place] % (Auto) Eos % (Auto) Baso % (Auto) Absolute Neuts (auto) Absolute Lymphs (auto) Total Counted PT INR APTT Sodium Potassium Chloride Carbon Dioxide Anion Gap BUN Creatinine Estim Creat Clear Calc Est GFR (MDRD) Af Amer Est GFR (MDRD) Non-Af BUN/Creatinine Ratio Glucose Calcium Blood Type A NEGATIVE Antibody Screen NEGATIVE Crossmatch See Detail See Detail See Detail 05/21/18 05/21/18 05/21/18 12:00 14:50 20:45 WBC RBC Hgb 7.5 L 7.8 L Hct 21.8 L 23.0 L MCV MCH MCHC RDW RDW Differential Plt Count MPV Immature Gran % (Auto) Neut % (Auto) Lymph % (Auto) [place] % (Auto) Eos % (Auto) Baso % (Auto) Absolute Neuts (auto) Absolute Lymphs (auto) Total Counted PT 16.6 H INR 1.3 APTT 29.0 Sodium Potassium Chloride Carbon Dioxide Anion Gap BUN Creatinine Estim Creat Clear Calc Est GFR (MDRD) Af Amer Est GFR (MDRD) Non-Af BUN/Creatinine Ratio Glucose Calcium Blood Type Antibody Screen Crossmatch 05/22/18 05/22/18 05/22/18 02:00 05:10 05:10 WBC 7.3 RBC 2.84 L Hgb 8.1 L 8.6 L Hct 23.7 L 25.3 L MCV 89.1 MCH 30.3 MCHC 34.0 RDW 15.5 H RDW Differential 49.3 H Plt Count 90 L MPV 9.5 Immature Gran % (Auto) 0.100 Neut % (Auto) 77.0 H Lymph % (Auto) 14.7 L [place] % (Auto) 7.4 Eos % (Auto) 0.5 Baso % (Auto) 0.3 Absolute Neuts (auto) 5.6 Absolute Lymphs (auto) 1.08 Total Counted Not Reportable PT INR APTT Sodium 149 H Potassium 3.8 Chloride 117 H Carbon Dioxide 25.0 Anion Gap 7 BUN 58 H Creatinine 1.00 Estim Creat Clear Calc 39.50 Est GFR (MDRD) Af Amer 71 Est GFR (MDRD) Non-Af 58 L BUN/Creatinine Ratio 58.2 H Glucose 111 H Calcium 8.3 L Blood Type Antibody Screen Crossmatch Medical Necessity - Tobacco Use Smoking Status: Never smoker Assessment/Plan All Active Problems (Last Reviewed 05/21/18 @ 10:06 by Chester Salgado MD) Acute blood loss anemia (Acute) GI bleed (Acute) This is a 72 years old female patient presented to the emergency room because of weakness, dizziness and melena, found to have acute blood loss secondary to GI bleed, underwent upper EGD done she was found to have nonbleeding duodenal ulcer with adherent blood clot. #1 acute blood loss from symptomatic anemia: Secondary to GI bleed which turned to be due to duodenal ulcer. She received a total of 4 units of packed RBCs and hemoglobin went up to 8.6 g/dL today. Her symptoms improved, normal weakness or dizziness. She is still tachycardic, other vital signs are stable. Started on full liquid diet today. Plan to resume home medications including metoprolol, possible transfer out of ICU today if heart rate stabilized. #2 GI bleed: Status post upper EGD and she was found to have duodenal ulcer with adherent blood clot which is the likely source of the bleeding. Hemoglobin and hematocrit stabilized after blood transfusion. She is on tonics twice daily. Plan as above. #3 acute kidney injury: BUN is highly elevated which is likely because of the GI bleed, admission creatinine was 1.3. Patient received IV fluids and her BUN and creatinine improved, creatinine is down to 1.00. #4 Coumadin induced coagulopathy: Admission INR was 5 patient was on Coumadin f or chronic atrial fibrillation. She received vitamin K and fresh frozen plasma, INR down to 1.3. Coumadin held. Plan to keep holding Coumadin for now, may need to keep patient off Coumadin for 1-2 weeks to allow healing of the duodenal ulcer. #5 chronic atrial fibrillation: Rate has been in the 140s, she is asymptomatic, blood pressure stable. Plan to resume metoprolol today for rate control. Keep holding Coumadin for now. #6 hypertension: Blood pressure stable, continue metoprolol. #7 chronic diastolic CHF: Clinically stable, compensated. Plan to resume metoprolol, later will resume Lasix and Aldactone. #8 DVT prophylaxis: SCDs. This note was generated with Tiren[employer] dictation software. It may contain incorrect words, spelling, and punctuation that were not noted in checking the note before signing. Code Visit Inpatient E&M: 46470 [facility]osp L2
--- NOTE | 2018-05-22 10:50 | PCM.PN.SRG ---
Patient Problems: Active and Suspected Problems (Last Reviewed 05/21/18 @ 10:06 by Chester Salgado MD) Acute blood loss anemia (Acute) GI bleed (Acute) Subjective: Patient is evaluated resting comfortably in bed. She notes much improvement in her abdominal pain. She denies hematemesis, BRBPR. - Physical Exam General: Alert, Oriented x3, Cooperative Abdomen: Bowel Sounds Present, Soft, Non Tender Vital Signs Temp Pulse Resp BP Pulse Ox 98.1 F 141 H 22 H 93/73 100 05/22/18 06:00 05/22/18 10:17 05/22/18 09:00 05/22/18 10:17 05/22/18 09:00 Oxygen Flow Rate (L/min) 2 Oxygen Delivery Method Room Air Weight: 160 lb 11.472 oz Body Mass Index (BMI) 35.0 Intake and Output for Last 24 Hours 05/20/18 05/21/18 05/22/18 23:59 23:59 23:59 Intake Total 4847 / 4847 1121 / 1121 Output Total 2375 / 2375 1000 / 1000 Balance 2472 / 2472 121 / 121 Microbiology Past 72 Hours 05/21/18 02:23 Stool Occult Blood (RAMANA) - Final Stool Laboratory Tests Past 24 Hrs 05/20/18 05/20/18 05/20/18 23:58 23:58 23:58 WBC RBC Hgb Hct MCV MCH MCHC RDW RDW Differential Plt Count MPV Immature Gran % (Auto) Neut % (Auto) Lymph % (Auto) [place] % (Auto) Eos % (Auto) Baso % (Auto) Absolute Neuts (auto) Absolute Lymphs (auto) Total Counted PT INR APTT Sodium Potassium Chloride Carbon Dioxide Anion Gap BUN Creatinine Estim Creat Clear Calc Est GFR (MDRD) Af Amer Est GFR (MDRD) Non-Af BUN/Creatinine Ratio Glucose Calcium Blood Type A NEGATIVE Antibody Screen NEGATIVE Crossmatch See Detail See Detail See Detail 05/21/18 05/21/18 05/21/18 12:00 14:50 20:45 WBC RBC Hgb 7.5 L 7.8 L Hct 21.8 L 23.0 L MCV MCH MCHC RDW RDW Differential Plt Count MPV Immature Gran % (Auto) Neut % (Auto) Lymph % (Auto) [place] % (Auto) Eos % (Auto) Baso % (Auto) Absolute Neuts (auto) Absolute Lymphs (auto) Total Counted PT 16.6 H INR 1.3 APTT 29.0 Sodium Potassium Chloride Carbon Dioxide Anion Gap BUN Creatinine Estim Creat Clear Calc Est GFR (MDRD) Af Amer Est GFR (MDRD) Non-Af BUN/Creatinine Ratio Glucose Calcium Blood Type Antibody Screen Crossmatch 05/22/18 05/22/18 05/22/18 02:00 05:10 05:10 WBC 7.3 RBC 2.84 L Hgb 8.1 L 8.6 L Hct 23.7 L 25.3 L MCV 89.1 MCH 30.3 MCHC 34.0 RDW 15.5 H RDW Differential 49.3 H Plt Count 90 L MPV 9.5 Immature Gran % (Auto) 0.100 Neut % (Auto) 77.0 H Lymph % (Auto) 14.7 L [place] % (Auto) 7.4 Eos % (Auto) 0.5 Baso % (Auto) 0.3 Absolute Neuts (auto) 5.6 Absolute Lymphs (auto) 1.08 Total Counted Not Reportable PT INR APTT Sodium 149 H Potassium 3.8 Chloride 117 H Carbon Dioxide 25.0 Anion Gap 7 BUN 58 H Creatinine 1.00 Estim Creat Clear Calc 39.50 Est GFR (MDRD) Af Amer 71 Est GFR (MDRD) Non-Af 58 L BUN/Creatinine Ratio 58.2 H Glucose 111 H Calcium 8.3 L Blood Type Antibody Screen Crossmatch Medical Necessity - Tobacco Use Smoking Status: Never smoker Assessment/Plan All Active Problems (Last Reviewed 05/21/18 @ 10:06 by Chester Salgado MD) Acute blood loss anemia (Acute) GI bleed (Acute) I am following this patient in conjunction with Dr. Salgado. Impression: Non-bleeding ulcer found on upper scope. - Continue on PPI - Plan to re-scope in 2 months - Increase diet to full liquids - We will continue to monitor this patient Code Visit Inpatient E&M: 51625 Subs Hosp L1
--- NOTE | 2018-05-22 13:14 | CASEMGMT ---
SW met with pt in room and completed assessment. Pt lives in a one story home with her spouse. Two sons and daughter in laws live next to pt. Pt does work during the day but daughter in laws are able to check on pt and assist as needed. Pt has a cane and uses at times for ambulation but no other DME. Prior to hospitalization pt was independent with ADLS and IADLs. She has not previously required SNF placement or HHS. PCP is Dr. Cuellar and pt also sees Dr. Lee. [facility] is pharmacy. Pt does not have living will nor health care POA and is not interested in obtaining further information about this. Pt plans to return to her home upon d/c and does not feel additional assistance at d/c will be needed. Pt made aware that SW will remain available to assist with d/c planning if needed. Plan: Home with family support, no d/c needs. ANAI Mccarty
[2018-05-22 17:45] LABS: Hematocrit 26.2 % (37-47); Hemoglobin 8.7 g/dl (12.0-15.0)
[2018-05-23] VITALS (16 sets, daily range): BP systolic 93–112; BP diastolic 51–78; PULSE 70–89; RESP 14–18; TEMP 36.6–36.9; O2SAT 96–100
[2018-05-23 06:16] LABS: Absolute Lymphocyte Count 1.07 X10^3/ul (0.83-4.51); Absolute Neutrophil Count 3.5 X10^3/uL (2.0-7.7); Basophil# 0.02 X10^3/uL; Basophil% 0.4 % (0-1); Eosinophil# 0.13 X10^3/uL; Eosinophils% 2.5 % (0-5); Hematocrit 21.7 % (37-47); Hemoglobin 7.1 g/dl (12.0-15.0); Lymphocyte # 1.07 X10^3/ul (4.0); Mean Corp Hgb Conc 32.7 g/gl (32-36); Mean Corpuscular Volume 94.8 fL (81-99); Mean Platelet Vol. 10.5 fl (6.2-12.0); Monocyte# 0.36 X10^3/uL; Monocyte% 7.1 % (0-10); Neutrophil % 68.6 % (47-70); Platelet Count 92 K/mm3 (150-450); RBC Distribution Width CV 15.7 % (11.6-14.6); RBC Distribution Width SD 50.6 fl (35.1-43.9); Red Blood Count 2.29 M/mm3 (4.2-5.4); White Blood Count 5.1 K/mm3 (4.4-11.0)
[2018-05-23 06:17] LABS: POSITIVE COUNT NO; POSITIVE DIFFERENTIAL NO; POSITIVE MORPHOLOGY NO
[2018-05-23 06:23] LABS: Anion Gap 8 (5-15); BUN 35 mg/dL (7-18); BUN/Creat Ratio 35.1 RATIO (10-20); Calcium,Total 7.9 mg/dL (8.5-10.1); Chloride 115 mmol/L (98-107); EST Glomerular Filtration Rate 58 mL/min (>60); Est Glom Filt Rate - Afr Amer 71 mL/min (>60); Glucose 99 mg/dL (74-106); Potassium 4.1 mmol/L (3.5-5.1); Sodium Level 147 mmol/L (136-145)
--- NOTE | 2018-05-23 07:56 | PN_ITS ---
Patient Problems: Active and Suspected Problems (Last Reviewed 05/21/18 @ 10:06 by Chester Salgado MD) Acute blood loss anemia (Acute) GI bleed (Acute) Subjective: Chief complaint: Follow-up after admission for GI bleed and acute blood loss anemia. Patient seen and examined. No acute events overnight. Today, she denies any complaints. She denies any more black stools. Denied dizziness or lightheadedness. Denies chest pain or shortness of breath. Denied melena or hematochezia. Her vital signs are stable, blood pressure is borderline. Hemoglobin is down to 7.1 g/dL. - Physical Exam General: Alert, Oriented x3, Cooperative, No apparent distress HEENT: Atraumatic, PERRLA, EOMI, Normocephalic Oral: Moist Mucosa, No Gingival or Mucosal Lesions/ Ulcerations Neck: Supple, No JVD, Negative Carotid Bruits, Trachea Midline, Thyroid Normal Size and Texture Lungs: Clear to auscultation, No rhonchi, No wheeze, No rales, Diminished Cardiovascular: Normal S1, Normal S2, No murmurs, PMI Normal, Irregular Rate Abdomen: Bowel Sounds Present, Soft, Non Tender, Non-Distended, No Hepato- splenomegaly Extremities: No clubbing, No cyanosis, No edema Skin: No rashes, No breakdown Lymphatic: No Cervical, Supraclavicular, or Inguinal Adenopathy Neurological: Cranial nerves II-XII grossly intact, Neuro grossly intact Psych/Mental Status: Normal Affect, Appropriate, Alert and oriented to time, place, person, mood and affect Vital Signs Temp Pulse Resp BP Pulse Ox 98.1 F 83 14 93/51 L 98 05/23/18 04:00 05/23/18 07:24 05/23/18 04:00 05/23/18 04:00 05/23/18 06:56 Oxygen Flow Rate (L/min) 2 Oxygen Delivery Method Room Air Weight: 186 lb 15.232 oz Body Mass Index (BMI) 35.0 Intake and Output for Last 24 Hours 05/21/18 05/22/18 05/23/18 23:59 23:59 23:59 Intake Total 4847 / 4847 1980 Output Total 2375 / 2375 1450 / 1450 Balance 2472 / 2472 531 / 531 Microbiology Past 72 Hours 05/21/18 02:23 Stool Occult Blood (RAMANA) - Final Stool Laboratory Tests Past 24 Hrs 05/20/18 05/22/18 05/23/18 23:58 17:25 05:25 WBC 5.1 RBC 2.29 L Hgb 8.7 L 7.1 L Hct 26.2 L 21.7 L MCV 94.8 MCH 31.0 MCHC 32.7 RDW 15.7 H RDW Differential 50.6 H Plt Count 92 L MPV 10.5 Immature Gran % (Auto) 0.400 Neut % (Auto) 68.6 Lymph % (Auto) 21.0 [place] % (Auto) 7.1 Eos % (Auto) 2.5 Baso % (Auto) 0.4 Absolute Neuts (auto) 3.5 Absolute Lymphs (auto) 1.07 Total Counted Not Reportable Sodium Potassium Chloride Carbon Dioxide Anion Gap BUN Creatinine Estim Creat Clear Calc Est GFR (MDRD) Af Amer Est GFR (MDRD) Non-Af BUN/Creatinine Ratio Glucose Calcium Crossmatch See Detail 05/23/18 05:25 WBC RBC Hgb Hct MCV MCH MCHC RDW RDW Differential Plt Count MPV Immature Gran % (Auto) Neut % (Auto) Lymph % (Auto) [place] % (Auto) Eos % (Auto) Baso % (Auto) Absolute Neuts (auto) Absolute Lymphs (auto) Total Counted Sodium 147 H Potassium 4.1 Chloride 115 H Carbon Dioxide 24.0 Anion Gap 8 BUN 35 H Creatinine 1.00 Estim Creat Clear Calc 39.50 Est GFR (MDRD) Af Amer 71 Est GFR (MDRD) Non-Af 58 L BUN/Creatinine Ratio 35.1 H Glucose 99 Calcium 7.9 L Crossmatch Medical Necessity - Tobacco Use Smoking Status: Never smoker Assessment/Plan All Active Problems (Last Reviewed 05/21/18 @ 10:06 by Chester Salgado MD) Acute blood loss anemia (Acute) GI bleed (Acute) This is a 72 years old female patient presented to the emergency room because of weakness, dizziness and melena, found to have acute blood loss secondary to GI bleed, underwent upper EGD done she was found to have nonbleeding duodenal ulcer with adherent blood clot. #1 acute blood loss symptomatic anemia: Secondary to GI bleed which turned to be due to duodenal ulcer. She received a total of 4 units of packed RBCs.today's hemoglobin again is down to 7.1 g/dL. She is asymptomatic. Denied melena or hematochezia. Denied hemoptysis. Her vital signs are stable. Plan: Transfuse another unit of packed RBCs, repeat H&H after blood transfusion, repeat CBC tomorrow morning. #2 GI bleed: Status post upper EGD and she was found to have duodenal ulcer with adherent blood clot which is the likely source of the bleeding. Hemoglobin is still dropping. Plan as above. #3 acute kidney injury: BUN is highly elevated which is likely because of the GI bleed, admission creatinine was 1.3. Patient received IV fluids and her BUN and creatinine improved, creatinine is down to 1.00. #4 Coumadin induced coagulopathy: Admission INR was 5 patient was on Coumadin for chronic atrial fibrillation. She received vitamin K and fresh frozen p lasma, INR down to 1.3. She remains off Coumadin. Plan to repeat INR tomorrow morning. #5 chronic atrial fibrillation: Rate is controlled. She is back on metoprolol. Coumadin on hold as above. #6 hypertension: Blood pressure stable, continue metoprolol. #7 chronic diastolic CHF: Clinically stable, compensated. Continue metoprolol, keep holding Lasix and Aldactone. #8 DVT prophylaxis: SCDs. This note was generated with [employer] dictation software. It may contain incorrect words, spelling, and punctuation that were not noted in checking the note before signing. Code Visit Inpatient E&M: 58070 Subs Hosp L2
--- NOTE | 2018-05-23 09:34 | PN_ITS ---
Subjective: Patient transferred out of the intensive care unit yesterday. Patient denies any acute issues overnight. Patient has not had any bowel movements. Patient denies any abdominal pain, nausea or vomiting. General: Alert, Oriented x3, Cooperative, No apparent distress, Well developed, Well nourished, - - Obese. Speaking in full sentences. HEENT: Atraumatic, PERRLA, EOMI, Normocephalic, - - No scleral icterus or injection noted. Oral: Moist Mucosa, No Gingival or Mucosal Lesions/ Ulcerations Neck: Supple, No JVD, No Nodes, Trachea Midline Lungs: Clear to auscultation, Normal air movement, No rhonchi, No wheeze, No ra les, - - Symmetric expansion. No dullness to percussion. Cardiovascular: Regular rate, Regular Rhythm, Normal S1, Normal S2, No murmurs, No rub noted, No Gallop Abdomen: Bowel Sounds Present, Soft, Non Tender, Non-Distended, Obese Extremities: No clubbing, No cyanosis, Edema - Lower extremity Skin: No rashes, No breakdown Musculoskeletal: No Tenderness to Palpation of Joints or Extremities Lymphatic: No Cervical, Supraclavicular, or Inguinal Adenopathy Neurological: Cranial nerves II-XII grossly intact, Neuro grossly intact, Motor Exam 5/5 strength throughout Psych/Mental Status: Alert and oriented to time, place, person, mood and affect Vital Signs Temp Pulse Resp BP Pulse Ox 36.7 C 83 14 93/51 L 98 05/23/18 04:00 05/23/18 07:24 05/23/18 04:00 05/23/18 04:00 05/23/18 06:56 Oxygen Flow Rate (L/min) 2 Oxygen Delivery Method Room Air Weight: 84.8 kg Body Mass Index (BMI) 35.0 Intake and Output for Last 24 Hours 05/21/18 05/22/18 05/23/18 23:59 23:59 23:59 Intake Total 4847 / 4847 1980 Output Total 2375 / 2375 1450 / 1450 Balance 2472 / 2472 531 / 531 Labs (Last 48 Hours) 05/20/18 05/20/18 05/20/18 23:58 23:58 23:58 WBC RBC Hgb Hct MCV MCH MCHC RDW RDW Differential Plt Count MPV Immature Gran % (Auto) Neut % (Auto) Lymph % (Auto) [place] % (Auto) Eos % (Auto) Baso % (Auto) Absolute Neuts (auto) Absolute Lymphs (auto) Total Counted PT INR APTT Sodium Potassium Chloride Carbon Dioxide Anion Gap BUN Creatinine Estim Creat Clear Calc Est GFR (MDRD) Af Amer Est GFR (MDRD) Non-Af BUN/Creatinine Ratio Glucose Calcium Blood Type A NEGATIVE Antibody Screen NEGATIVE Crossmatch See Detail See Detail See Detail 05/20/18 05/21/18 05/21/18 23:58 12:00 14:50 WBC RBC Hgb 7.5 L Hct 21.8 L MCV MCH MCHC RDW RDW Differential Plt Count MPV Immature Gran % (Auto) Neut % (Auto) Lymph % (Auto) [place] % (Auto) Eos % (Auto) Baso % (Auto) Absolute Neuts (auto) Absolute Lymphs (auto) Total Counted PT 16.6 H INR 1.3 APTT 29.0 Sodium Potassium Chloride Carbon Dioxide Anion Gap BUN Creatinine Estim Creat Clear Calc Est GFR (MDRD) Af Amer Est GFR (MDRD) Non-Af BUN/Creatinine Ratio Glucose Calcium Blood Type Antibody Screen Crossmatch See Detail 05/21/18 05/22/18 05/22/18 20:45 02:00 05:10 WBC 7.3 RBC 2.84 L Hgb 7.8 L 8.1 L 8.6 L Hct 23.0 L 23.7 L 25.3 L MCV 89.1 MCH 30.3 MCHC 34.0 RDW 15.5 H RDW Differential 49.3 H Plt Count 90 L MPV 9.5 Immature Gran % (Auto) 0.100 Neut % (Auto) 77.0 H Lymph % (Auto) 14.7 L [place] % (Auto) 7.4 Eos % (Auto) 0.5 Baso % (Auto) 0.3 Absolute Neuts (auto) 5.6 Absolute Lymphs (auto) 1.08 Total Counted Not Reportable PT INR APTT Sodium Potassium Chloride Carbon Dioxide Anion Gap BUN Creatinine Estim Creat Clear Calc Est GFR (MDRD) Af Amer Est GFR (MDRD) Non-Af BUN/Creatinine Ratio Glucose Calcium Blood Type Antibody Screen Crossmatch 05/22/18 05/22/18 05/23/18 05:10 17:25 05:25 WBC 5.1 RBC 2.29 L Hgb 8.7 L 7.1 L Hct 26.2 L 21.7 L MCV 94.8 MCH 31.0 MCHC 32.7 RDW 15.7 H RDW Differential 50.6 H Plt Count 92 L MPV 10.5 Immature Gran % (Auto) 0.400 Neut % (Auto) 68.6 Lymph % (Auto) 21.0 [place] % (Auto) 7.1 Eos % (Auto) 2.5 Baso % (Auto) 0.4 Absolute Neuts (auto) 3.5 Absolute Lymphs (auto) 1.07 Total Counted Not Reportable PT INR APTT Sodium 149 H Potassium 3.8 Chloride 117 H Carbon Dioxide 25.0 Anion Gap 7 BUN 58 H Creatinine 1.00 Estim Creat Clear Calc 39.50 Est GFR (MDRD) Af Amer 71 Est GFR (MDRD) Non-Af 58 L BUN/Creatinine Ratio 58.2 H Glucose 111 H Calcium 8.3 L Blood Type Antibody Screen Crossmatch 05/23/18 05:25 WBC RBC Hgb Hct MCV MCH MCHC RDW RDW Differential Plt Count MPV Immature Gran % (Auto) Neut % (Auto) Lymph % (Auto) [place] % (Auto) Eos % (Auto) Baso % (Auto) Absolute Neuts (auto) Absolute Lymphs (auto) Total Counted PT INR APTT Sodium 147 H Potassium 4.1 Chloride 115 H Carbon Dioxide 24.0 Anion Gap 8 BUN 35 H Creatinine 1.00 Estim Creat Clear Calc 39.50 Est GFR (MDRD) Af Amer 71 Est GFR (MDRD) Non-Af 58 L BUN/Creatinine Ratio 35.1 H Glucose 99 Calcium 7.9 L Blood Type Antibody Screen Crossmatch Medical Necessity - Tobacco Use Smoking Status: Never smoker Assessment/Plan All Active Problems (Last Reviewed 05/21/18 @ 10:06 by Chester Salgado MD) Acute blood loss anemia (Acute) GI bleed (Acute) RECOMMENDATIONS: 1. Agree with transfusing 1 unit packed red blood cells 2. Continue to hold Coumadin therapy 3. Would continue to hold baseline diuretic and spironolactone 4. Transfuse to keep H&H greater than 8 5. Protonix to twice daily 6. Hemodynamically stable on room air. Please call with further issues. IMPRESSIONS: 1. Blood loss anemia secondary to duodenal ulcer Patient noted to have a duodenal ulcer with adherent clot on EGD. No interventions were done at that time. Patient transitioned to Protonix twice daily. Patient has a normal INR yesterday. No additional Coumadin has been given. Patient is doing well on room air and has received a total of 4 units of blood. Agree with additional unit of packed red blood cells. That being said, patient is hemodynamically stable on room air. Will defer to hospitalist for further interventions, but please call if there is suspected rapid bleeding. Advance diet per surgery recommendations 2. A. fib with RVR/chronic diastolic congestive heart failure Patient has blood pressure appears to be much improved compared to previous. This is likely secondary to resolution of GI bleed. Patient tolerating reinitiation of beta-jesus. Hold on Lasix therapy and spironolactone for now. 3. Acute kidney injury Improving. Patient with mild increase in creatinine secondary to #1. Patient was significantly elevated BUN secondary to acute GI bleed. We will continue to monitor closely. No indication for renal replacement therapy at this time. 4. Advanced age/hypertension/valve insufficiency/hypernatremia/hyperchloremia Complicates care, management, recovery and prognosis. Antihypertensives have been held secondary to acute condition. Anticipate electrolyte abnormalities will improve once patient is able to take free water. Code Visit Inpatient E&M: 46128 Subs Hosp L2
[2018-05-23] MEDS: Pantoprazole Sodium 40 MG Tablet PO ×2 (11:10→21:20)
[2018-05-23] MEDS: Metoprolol Tartrate 100 MG Tablet PO ×2 (11:10→21:26)
[2018-05-23 16:27] LABS: Hematocrit 28.3 % (37-47); Hemoglobin 9.3 g/dl (12.0-15.0)
[2018-05-24] VITALS (7 sets, daily range): BP systolic 105–114; BP diastolic 63–67; PULSE 70–88; RESP 16–18; TEMP 36.7–36.8; O2SAT 97–99
[2018-05-24 06:19] LABS: International Normalized Ratio 1.1; Prothrombin Time (Protime)PT. 14.3 SECONDS (11.7-14.9)
--- NOTE | 2018-05-24 07:30 | PN.SURG_ITS ---
Patient Problems: Active and Suspected Problems (Last Reviewed 05/21/18 @ 10:06 by Chester Salgado MD) Acute blood loss anemia (Acute) GI bleed (Acute) Subjective: Patient has not complaining of any abdominal pain. She has not had any bowel movement she is not noticing any melena or hematochezia. Objective: Abdomen is soft - Physical Exam Vital Signs Temp Pulse Resp BP Pulse Ox 98.2 F 71 18 114/63 98 05/24/18 03:20 05/24/18 04:39 05/24/18 03:20 05/24/18 03:20 05/24/18 03:20 Oxygen Flow Rate (L/min) 2 Oxygen Delivery Method Room Air Weight: 189 lb 13.088 oz Body Mass Index (BMI) 35.0 Intake and Output for Last 24 Hours 05/22/18 05/23/18 05/24/18 23:59 23:59 23:59 Intake Total 1980 / 1980 1920 / 1920 240 / 240 Output Total 1450 / 1450 Balance 531 / 531 1920 / 1920 240 / 240 Microbiology Past 72 Hours 05/21/18 02:23 Stool Occult Blood (RAMANA) - Final Stool Laboratory Tests Past 24 Hrs 05/20/18 05/20/18 05/23/18 23:58 23:58 16:05 WBC RBC Hgb 9.3 L Hct 28.3 L MCV MCH MCHC RDW RDW Differential Plt Count MPV Immature Gran % (Auto) Neut % (Auto) Lymph % (Auto) [place] % (Auto) Eos % (Auto) Baso % (Auto) Absolute Neuts (auto) Absolute Lymphs (auto) Total Counted Differential Comment Diff Path Review Platelet Estimate Polychromasia Anisocytosis PT INR Sodium Potassium Chloride Carbon Dioxide Anion Gap BUN Creatinine Est GFR (MDRD) Af Amer Est GFR (MDRD) Non-Af BUN/Creatinine Ratio Glucose Calcium Crossmatch See Detail See Detail 05/24/18 05/24/18 05/24/18 05:28 05:28 05:28 WBC 3.9 L RBC 2.29 L Hgb 6.9 L Hct 21.2 L MCV 92.6 MCH 30.1 MCHC 32.5 RDW 15.3 H RDW Differential 49.5 H Plt Count 17 L* MPV 11.6 Immature Gran % (Auto) 0.500 Neut % (Auto) 75.7 H Lymph % (Auto) 13.8 L [place] % (Auto) 7.4 Eos % (Auto) 2.3 Baso % (Auto) 0.3 Absolute Neuts (auto) 3.0 Absolute Lymphs (auto) 0.54 L Total Counted Pending Differential Comment Diff Path Review May foll Platelet Estimate MKD DEC Polychromasia 1+ Anisocytosis 1+ PT 14.3 INR 1.1 Sodium Pending Potassium Pending Chloride Pending Carbon Dioxide Pending Anion Gap Pending BUN Pending Creatinine Pending Est GFR (MDRD) Af Amer Pending Est GFR (MDRD) Non-Af Pending BUN/Creatinine Ratio Pending Glucose Pending Calcium Pending Crossmatch Medical Necessity - Tobacco Use Smoking Status: Never smoker Assessment/Plan All Active Problems (Last Reviewed 05/21/18 @ 10:06 by Chester Salgado MD) Acute blood loss anemia (Acute) GI bleed (Acute) Hemoglobin was 6.9 and platelets were only 17,000. She is completely asymptomatic at this time. Will defer any further treatments to medicine.
[2018-05-24 07:42] LABS: Partial Thromboplast Time 24.9 Seconds (24.1-36.2)
[2018-05-24 07:59] LABS: Absolute Lymphocyte Count 0.88 X10^3/ul (0.83-4.51); Absolute Neutrophil Count 5.1 X10^3/uL (2.0-7.7); Basophil# 0.01 X10^3/uL; Basophil% 0.2 % (0-1); Eosinophil# 0.14 X10^3/uL; Eosinophils% 2.1 % (0-5); Hematocrit 26.5 % (37-47); Hemoglobin 8.8 g/dl (12.0-15.0); Lymphocyte # 0.88 X10^3/ul (4.0); Lymphocyte % 13.4 % (19-41); Mean Corp Hgb Conc 33.2 g/gl (32-36); Mean Corpuscular Hgb 30.6 pg (27.0-32.0); Mean Platelet Vol. 9.8 fl (6.2-12.0); Monocyte% 6.1 % (0-10); Neutrophil # 5.13 X10^3/uL (2.7-7.7); Platelet Count 102 K/mm3 (150-450); RBC Distribution Width CV 15.1 % (11.6-14.6); RBC Distribution Width SD 49.1 fl (35.1-43.9); Red Blood Count 2.88 M/mm3 (4.2-5.4); White Blood Count 6.6 K/mm3 (4.4-11.0)
[2018-05-24 08:00] LABS: POSITIVE COUNT NO; POSITIVE DIFFERENTIAL NO; POSITIVE MORPHOLOGY NO
[2018-05-24 08:14] LABS: Lipase 212 U/L (73-393)
--- NOTE | 2018-05-24 08:14 | PCM.PROGNOTE ---
Patient Problems: Active and Suspected Problems (Last Reviewed 05/21/18 @ 10:06 by Chester Salgado MD) Acute blood loss anemia (Acute) GI bleed (Acute) Subjective: Chief complaint: Follow-up after admission for GI bleed and acute blood loss anemia. Patient seen and examined. No acute events overnight. She had a bowel movement last night, black dark stool, no hematochezia. Denied abdominal pain, nausea or vomiting. Her vital signs are stable. - Physical Exam General: Alert, Oriented x3, Cooperative, No apparent distress HEENT: Atraumatic, PERRLA, EOMI, Normocephalic Oral: Moist Mucosa, No Gingival or Mucosal Lesions/ Ulcerations Neck: Supple, No JVD, Negative Carotid Bruits, Trachea Midline, Thyroid Normal Size and Texture Lungs: Clear to auscultation, No rhonchi, No wheeze, No rales, Diminished Cardiovascular: Normal S1, Normal S2, No murmurs, PMI Normal, Irregular Rate Abdomen: Bowel Sounds Present, Soft, Non Tender, Non-Distended, No Hepato-splenomegaly Extremities: No clubbing, No cyanosis, No edema Skin: No rashes, No breakdown Lymphatic: No Cervical, Supraclavicular, or Inguinal Adenopathy Neurological: Cranial nerves II-XII grossly intact, Neuro grossly intact Psych/Mental Status: Normal Affect, Appropriate, Alert and oriented to time, place, person, mood and affect Vital Signs Temp Pulse Resp BP Pulse Ox 98.2 F 70 18 114/63 97 05/24/18 03:20 05/24/18 07:05 05/24/18 03:20 05/24/18 03:20 05/24/18 07:39 Oxygen Flow Rate (L/min) 2 Oxygen Delivery Method Room Air Weight: 189 lb 13.088 oz Body Mass Index (BMI) 35.0 Intake and Output for Last 24 Hours 05/22/18 05/23/18 05/24/18 23:59 23:59 23:59 Intake Total 1980 / 1919 240 / 240 Output Total 1450 / 1450 Balance 531 / 531 1919 / 1919 240 / 240 Laboratory Tests Past 24 Hrs 05/20/18 05/20/18 05/23/18 23:58 23:58 16:05 WBC RBC Hgb 9.3 L Hct 28.3 L MCV MCH MCHC RDW RDW Differential Plt Count MPV Immature Gran % (Auto) Neut % (Auto) Lymph % (Auto) [place] % (Auto) Eos % (Auto) Baso % (Auto) Absolute Neuts (auto) Absolute Lymphs (auto) Total Counted Differential Comment Diff Path Review Platelet Estimate Polychromasia Anisocytosis PT INR APTT Sodium Potassium Chloride Carbon Dioxide Anion Gap BUN Creatinine Est GFR (MDRD) Af Amer Est GFR (MDRD) Non-Af BUN/Creatinine Ratio Glucose Calcium Lipase Blood Type Antibody Screen Crossmatch See Detail See Detail 05/24/18 05/24/18 05/24/18 05:28 05:28 05:28 WBC 3.9 L RBC 2.29 L Hgb 6.9 L Hct 21.2 L MCV 92.6 MCH 30.1 MCHC 32.5 RDW 15.3 H RDW Differential 49.5 H Plt Count 17 L* MPV 11.6 Immature Gran % (Auto) 0.500 Neut % (Auto) 75.7 H Lymph % (Auto) 13.8 L [place] % (Auto) 7.4 Eos % (Auto) 2.3 Baso % (Auto) 0.3 Absolute Neuts (auto) 3.0 Absolute Lymphs (auto) 0.54 L Total Counted Pending Differential Comment Diff Path Review May foll Platelet Estimate MKD DEC Polychromasia 1+ Anisocytosis 1+ PT 14.3 INR 1.1 APTT Sodium Pending Potassium Pending Chloride Pending Carbon Dioxide Pending Anion Gap Pending BUN Pending Creatinine Pending Est GFR (MDRD) Af Amer Pending Est GFR (MDRD) Non-Af Pending BUN/Creatinine Ratio Pending Glucose Pending Calcium Pending Lipase Blood Type Antibody Screen Crossmatch 05/24/18 05/24/18 05/24/18 05:28 07:41 07:41 WBC 6.6 RBC 2.88 L Hgb 8.8 L Hct 26.5 L MCV 92.0 MCH 30.6 MCHC 33.2 RDW 15.1 H RDW Differential 49.1 H Plt Count 102 L MPV 9.8 Immature Gran % (Auto) 0.200 Neut % (Auto) 78.0 H Lymph % (Auto) 13.4 L [place] % (Auto) 6.1 Eos % (Auto) 2.1 Baso % (Auto) 0.2 Absolute Neuts (auto) 5.1 Absolute Lymphs (auto) 0.88 Total Counted Not Reportable Differential Comment Diff Path Review Platelet Estimate Polychromasia Anisocytosis PT INR APTT 24.9 Sodium Potassium Chloride Carbon Dioxide Anion Gap BUN Creatinine Est GFR (MDRD) Af Amer Est GFR (MDRD) Non-Af BUN/Creatinine Ratio Glucose Calcium Lipase Blood Type Pending Antibody Screen Pending Crossmatch See Detail 05/24/18 07:41 WBC RBC Hgb Hct MCV MCH MCHC RDW RDW Differential Plt Count MPV Immature Gran % (Auto) Neut % (Auto) Lymph % (Auto) [place] % (Auto) Eos % (Auto) Baso % (Auto) Absolute Neuts (auto) Absolute Lymphs (auto) Total Counted Differential Comment Diff Path Review Platelet Estimate Polychromasia Anisocytosis PT INR APTT Sodium Potassium Chloride Carbon Dioxide Anion Gap BUN Creatinine Est GFR (MDRD) Af Amer Est GFR (MDRD) Non-Af BUN/Creatinine Ratio Glucose Calcium Lipase Pending Blood Type Antibody Screen Crossmatch Medical Necessity - Tobacco Use Smoking Status: Never smoker Assessment/Plan All Active Problems (Last Reviewed 05/21/18 @ 10:06 by Chester Salgado MD) Acute blood loss anemia (Acute) GI bleed (Acute) This is a 72 years old female patient presented to the emergency room because of weakness, dizziness and melena, found to have acute blood loss secondary to GI bleed, underwent upper EGD done she was found to have nonbleeding duodenal ulcer with adherent blood clot. #1 acute blood loss symptomatic anemia: Secondary to GI bleed which turned to be due to duodenal ulcer. She received a total of 5 units of packed RBCs.CBC from ER this morning revealed hemoglobin of 6.9 g/dL and platelet count of 17,000. Repeat CBC revealed hemoglobin of 8.8 g/dL and platelet count of 102,000. She is asymptomatic. Denied melena or hematochezia. Denied hemoptysis. Her vital signs are stable. Plan: Continue same treatment, possible DC home later today versus tomorrow morning. #2 GI bleed: Status post upper EGD and she was found to have duodenal ulcer with adherent blood clot which is the likely source of the bleeding. Hemoglobin and hematocrit as above, plan as above. #3 acute kidney injury: BUN is highly elevated which is likely because of the GI bleed, admission creatinine was 1.3. Patient received IV fluids and her BUN and creatinine improved, creatinine is down to 1.00. BMP from today is pending. #4 Coumadin induced coagulopathy: Admission INR was 5 patient was on Coumadin for chronic atrial fibrillation. She received vitamin K and fresh frozen plasma, INR down to 1.1 today. She remains off Coumadin. #5 chronic atrial fibrillation: Rate is controlled. She is back on metoprolol. Coumadin on hold as above. #6 hypertension: Blood pressure stable, continue metoprolol. #7 chronic diastolic CHF: Clinically stable, compensated. Continue metoprolol, and Aldactone. #8 DVT prophylaxis: SCDs. This note was generated with [employer] dictation software. It may contain incorrect words, spelling, and punctuation that were not noted in checking the note before signing.
--- NOTE | 2018-05-24 08:28 | PCM.PN.INT ---
Subjective: Patient did well overnight. No acute issues were reported. Patient states she did have a bowel movement overnight that was dark, but she did not save it for the staff to look at. Patient denies any current abdominal pain, nausea or vomiting. General: Alert, Oriented x3, Cooperative, No apparent distress, - - Obese. Speaking in full sentences. HEENT: Atraumatic, PERRLA, EOMI, Normocephalic, - - No scleral icterus or injection noted. Oral: Moist Mucosa, No Gingival or Mucosal Lesions/ Ulcerations Neck: Supple, No JVD, No Nodes, Trachea Midline Lungs: Clear to auscultation, Normal air movement, No rhonchi, No wheeze, No rales Cardiovascular: Regular rate, Regular Rhythm, Normal S1, Normal S2, No murmurs, No rub noted, No Gallop Abdomen: Bowel Sounds Present, Soft, Non Tender, Non-Distended, Obese Extremities: No clubbing, No cyanosis, Capillary Refill Less than 3 Seconds, Edema - Trace lower extremity Skin: No rashes, No breakdown Musculoskeletal: No Tenderness to Palpation of Joints or Extremities Lymphatic: No Cervical, Supraclavicular, or Inguinal Adenopathy Neurological: Cranial nerves II-XII grossly intact, Neuro grossly intact, Motor Exam 5/5 strength throughout Psych/Mental Status: Alert and oriented to time, place, person, mood and affect Vital Signs Temp Pulse Resp BP Pulse Ox 36.8 C 70 18 114/63 97 05/24/18 03:20 05/24/18 07:05 05/24/18 03:20 05/24/18 03:20 05/24/18 07:39 Oxygen Flow Rate (L/min) 2 Oxygen Delivery Method Room Air Weight: 86.1 kg Body Mass Index (BMI) 35.0 Intake and Output for Last 24 Hours 05/22/18 05/23/18 05/24/18 23:59 23:59 23:59 Intake Total 1980 / 1919 240 / 240 Output Total 1450 / 1450 Balance 531 / 531 1919 / 1919 240 / 240 Labs (Last 48 Hours) 05/20/18 05/20/18 05/22/18 23:58 23:58 17:25 WBC Corrected WBC RBC Hgb 8.7 L Hct 26.2 L MCV MCH MCHC RDW RDW Differential Plt Count MPV Immature Gran % (Auto) Neut % (Auto) Lymph % (Auto) Bland % (Auto) Eos % (Auto) Baso % (Auto) Absolute Neuts (auto) Absolute Lymphs (auto) Immature Gran # (Auto) Absolute Monos (auto) Total Counted Neutrophils % (Manual) Band Neutrophils % Lymphocytes % (Manual) Monocytes % (Manual) Eosinophils % (Manual) Basophils % (Manual) Metamyelocytes % Myelocytes % Promyelocytes % Blast Cells % Plasma Cell % (Manual) Other Cells % Lymphocytes # Nucleated RBCs/100 WBC Differential Comment Diff Path Review Hypersegmented Neuts Atypical Lymphocytes Reactive Lymphocytes Smudge Cells Eosinophilia # Basophilia # Toxic Granulation Dohle Bodies Yashira Rods Platelet Estimate Plt Morphology Comment RBC Morphology Polychromasia Hypochromasia Poikilocytosis Basophilic Stippling Anisocytosis Microcytosis Macrocytosis Spherocytes Sickle Cells Target Cells Tear Drop Cells Ovalocytes Stomatocytes [place] Bodies [place] Cells Bite Cells Acanthocytes (Spur) Rouleaux Schistocytes PT INR APTT Sodium Potassium Chloride Carbon Dioxide Anion Gap BUN Creatinine Estim Creat Clear Calc Est GFR (MDRD) Af Amer Est GFR (MDRD) Non-Af BUN/Creatinine Ratio Glucose Calcium Lipase Blood Type Antibody Screen Crossmatch See Detail See Detail 05/23/18 05/23/18 05/23/18 05:25 05:25 16:05 WBC 5.1 Corrected WBC RBC 2.29 L Hgb 7.1 L 9.3 L Hct 21.7 L 28.3 L MCV 94.8 MCH 31.0 MCHC 32.7 RDW 15.7 H RDW Differential 50.6 H Plt Count 92 L MPV 10.5 Immature Gran % (Auto) 0.400 Neut % (Auto) 68.6 Lymph % (Auto) 21.0 Bland % (Auto) 7.1 Eos % (Auto) 2.5 Baso % (Auto) 0.4 Absolute Neuts (auto) 3.5 Absolute Lymphs (auto) 1.07 Immature Gran # (Auto) Absolute Monos (auto) Total Counted Not Reportable Neutrophils % (Manual) Band Neutrophils % Lymphocytes % (Manual) Monocytes % (Manual) Eosinophils % (Manual) Basophils % (Manual) Metamyelocytes % Myelocytes % Promyelocytes % Blast Cells % Plasma Cell % (Manual) Other Cells % Lymphocytes # Nucleated RBCs/100 WBC Differential Comment Diff Path Review Hypersegmented Neuts Atypical Lymphocytes Reactive Lymphocytes Smudge Cells Eosinophilia # Basophilia # Toxic Granulation Dohle Bodies Yashira Rods Platelet Estimate Plt Morphology Comment RBC Morphology Polychromasia Hypochromasia Poikilocytosis Basophilic Stippling Anisocytosis Microcytosis Macrocytosis Spherocytes Sickle Cells Target Cells Tear Drop Cells Ovalocytes Stomatocytes [place] Bodies Vinay Cells Bite Cells Acanthocytes (Spur) Rouleaux Schistocytes PT INR APTT Sodium 147 H Potassium 4.1 Chloride 115 H Carbon Dioxide 24.0 Anion Gap 8 BUN 35 H Creatinine 1.00 Estim Creat Clear Calc 39.50 Est GFR (MDRD) Af Amer 71 Est GFR (MDRD) Non-Af 58 L BUN/Creatinine Ratio 35.1 H Glucose 99 Calcium 7.9 L Lipase Blood Type Antibody Screen Crossmatch 05/24/18 05/24/18 05/24/18 05:28 05:28 05:28 WBC Cancelled Corrected WBC Cancelled RBC Cancelled Hgb Cancelled Hct Cancelled MCV Cancelled MCH Cancelled MCHC Cancelled RDW Cancelled RDW Differential Cancelled Plt Count Cancelled MPV Cancelled Immature Gran % (Auto) Cancelled Neut % (Auto) Cancelled Lymph % (Auto) Cancelled Bland % (Auto) Cancelled Eos % (Auto) Cancelled Baso % (Auto) Cancelled Absolute Neuts (auto) Cancelled Absolute Lymphs (auto) Cancelled Immature Gran # (Auto) Cancelled Absolute Monos (auto) Cancelled Total Counted Cancelled Neutrophils % (Manual) Cancelled Band Neutrophils % Cancelled Lymphocytes % (Manual) Cancelled Monocytes % (Manual) Cancelled Eosinophils % (Manual) Cancelled Basophils % (Manual) Cancelled Metamyelocytes % Cancelled Myelocytes % Cancelled Promyelocytes % Cancelled Blast Cells % Cancelled Plasma Cell % (Manual) Cancelled Other Cells % Cancelled Lymphocytes # Cancelled Nucleated RBCs/100 WBC Cancelled Differential Comment Cancelled Diff Path Review Cancelled Hypersegmented Neuts Cancelled Atypical Lymphocytes Cancelled Reactive Lymphocytes Cancelled Smudge Cells Cancelled Eosinophilia # Cancelled Basophilia # Cancelled Toxic Granulation Cancelled Dohle Bodies Cancelled Yashira Rods Cancelled Platelet Estimate Cancelled Plt Morphology Comment Cancelled RBC Morphology Cancelled Polychromasia Cancelled Hypochromasia Cancelled Poikilocytosis Cancelled Basophilic Stippling Cancelled Anisocytosis Cancelled Microcytosis Cancelled Macrocytosis Cancelled Spherocytes Cancelled Sickle Cells Cancelled Target Cells Cancelled Tear Drop Cells Cancelled Ovalocytes Cancelled Stomatocytes Cancelled [place] Bodies Cancelled [place] Cells Cancelled Bite Cells Cancelled Acanthocytes (Spur) Cancelled Rouleaux Cancelled Schistocytes Cancelled PT 14.3 INR 1.1 APTT Sodium Pending Potassium Pending Chloride Pending Carbon Dioxide Pending Anion Gap Pending BUN Pending Creatinine Pending Estim Creat Clear Calc Est GFR (MDRD) Af Amer Pending Est GFR (MDRD) Non-Af Pending BUN/Creatinine Ratio Pending Glucose Pending Calcium Pending Lipase Blood Type Antibody Screen Crossmatch 05/24/18 05/24/18 05/24/18 05:28 07:41 07:41 WBC 6.6 Corrected WBC RBC 2.88 L Hgb 8.8 L Hct 26.5 L MCV 92.0 MCH 30.6 MCHC 33.2 RDW 15.1 H RDW Differential 49.1 H Plt Count 102 L MPV 9.8 Immature Gran % (Auto) 0.200 Neut % (Auto) 78.0 H Lymph % (Auto) 13.4 L Bland % (Auto) 6.1 Eos % (Auto) 2.1 Baso % (Auto) 0.2 Absolute Neuts (auto) 5.1 Absolute Lymphs (auto) 0.88 Immature Gran # (Auto) Absolute Monos (auto) Total Counted Not Reportable Neutrophils % (Manual) Band Neutrophils % Lymphocytes % (Manual) Monocytes % (Manual) Eosinophils % (Manual) Basophils % (Manual) Metamyelocytes % Myelocytes % Promyelocytes % Blast Cells % Plasma Cell % (Manual) Other Cells % Lymphocytes # Nucleated RBCs/100 WBC Differential Comment Diff Path Review Hypersegmented Neuts Atypical Lymphocytes Reactive Lymphocytes Smudge Cells Eosinophilia # Basophilia # Toxic Granulation Dohle Bodies Yashira Rods Platelet Estimate Plt Morphology Comment RBC Morphology Polychromasia Hypochromasia Poikilocytosis Basophilic Stippling Anisocytosis Microcytosis Macrocytosis Spherocytes Sickle Cells Target Cells Tear Drop Cells Ovalocytes Stomatocytes [place] Bodies [place] Cells Bite Cells Acanthocytes (Spur) Rouleaux Schistocytes PT INR APTT 24.9 Sodium Potassium Chloride Carbon Dioxide Anion Gap BUN Creatinine Estim Creat Clear Calc Est GFR (MDRD) Af Amer Est GFR (MDRD) Non-Af BUN/Creatinine Ratio Glucose Calcium Lipase Blood Type Pending Antibody Screen Pending Crossmatch See Detail 05/24/18 07:41 WBC Corrected WBC RBC Hgb Hct MCV MCH MCHC RDW RDW Differential Plt Count MPV Immature Gran % (Auto) Neut % (Auto) Lymph % (Auto) Bland % (Auto) Eos % (Auto) Baso % (Auto) Absolute Neuts (auto) Absolute Lymphs (auto) Immature Gran # (Auto) Absolute Monos (auto) Total Counted Neutrophils % (Manual) Band Neutrophils % Lymphocytes % (Manual) Monocytes % (Manual) Eosinophils % (Manual) Basophils % (Manual) Metamyelocytes % Myelocytes % Promyelocytes % Blast Cells % Plasma Cell % (Manual) Other Cells % Lymphocytes # Nucleated RBCs/100 WBC Differential Comment Diff Path Review Hypersegmented Neuts Atypical Lymphocytes Reactive Lymphocytes Smudge Cells Eosinophilia # Basophilia # Toxic Granulation Dohle Bodies Yashira Rods Platelet Estimate Plt Morphology Comment RBC Morphology Polychromasia Hypochromasia Poikilocytosis Basophilic Stippling Anisocytosis Microcytosis Macrocytosis Spherocytes Sickle Cells Target Cells Tear Drop Cells Ovalocytes Stomatocytes [place] Bodies Vinay Cells Bite Cells Acanthocytes (Spur) Rouleaux Schistocytes PT INR APTT Sodium Potassium Chloride Carbon Dioxide Anion Gap BUN Creatinine Estim Creat Clear Calc Est GFR (MDRD) Af Amer Est GFR (MDRD) Non-Af BUN/Creatinine Ratio Glucose Calcium Lipase 212 Blood Type Antibody Screen Crossmatch Medical Necessity - Tobacco Use Smoking Status: Never smoker Assessment/Plan All Active Problems (Last Reviewed 05/21/18 @ 10:06 by Chester Salgado MD) Acute blood loss anemia (Acute) GI bleed (Acute) RECOMMENDATIONS: 1. No further blood transfusions indicated 2. Continue to hold Coumadin therapy as directed by surgery 3. Weekly okay to reinitiate diuretic and Spironolactone therapy 4. Continue Protonix twice daily by mouth for at least 30 days 5. Will sign off from a critical care perspective IMPRESSIONS: 1. Blood loss anemia secondary to duodenal ulcer Patient noted to have a duodenal ulcer with adherent clot on EGD. No interventions were done at that time. Patient transitioned to Protonix twice daily. Patient's initial morning CBC showed significant decline, so patient was seen. Patient's history is not compatible with repeat bleed. CBC was repeated showing apparent correction despite no interventions indicating lab error. Hemodynamically stable on room air. Will sign off from a critical care perspective. 2. A. fib with RVR/chronic diastolic congestive heart failure Patient has blood pressure appears to be much improved compared to previous. This is likely secondary to resolution of GI bleed. Patient tolerating reinitiation of beta-jesus. [place] okay to reinitiate Lasix therapy and spironolactone for now. 3. Acute kidney injury Improving. Patient with mild increase in creatinine secondary to #1. Patient was significantly elevated BUN secondary to acute GI bleed. We will continue to monitor closely. No indication for renal replacement therapy at this time. 4. Advanced age/hypertension/valve insufficiency/hypernatremia/hyperchloremia Complicates care, management, recovery and prognosis. Antihypertensives have been held secondary to acute condition. Anticipate electrolyte abnormalities will improve once patient is able to take free water. Code Visit Inpatient E&M: 30443 Subs Hosp L2
[2018-05-24 08:48] LABS: Anion Gap 9 (5-15); BUN 19 mg/dL (7-18); BUN/Creat Ratio 22.2 RATIO (10-20); Chloride 110 mmol/L (98-107); Creatinine, Serum 0.86 mg/dL (0.55-1.02); EST Glomerular Filtration Rate 69 mL/min (>60); Est Glom Filt Rate - Afr Amer 84 mL/min (>60); Estimated Creatinine Clearance 45.93 ml/min; Glucose 102 mg/dL (74-106); Potassium 4.1 mmol/L (3.5-5.1); Sodium Level 140 mmol/L (136-145)
[2018-05-24] MEDS: Metoprolol Tartrate 100 MG Tablet PO (09:59)
[2018-05-24] MEDS: Spironolactone 25 MG Tablet PO (10:00)
[2018-05-24] MEDS: Furosemide 40 MG Tablet PO (10:00)
[2018-05-24] MEDS: Pantoprazole Sodium 40 MG Tablet PO (10:00)
[2018-05-24 12:54] LABS: Absolute Lymphocyte Count 0.91 X10^3/ul (0.83-4.51); Absolute Neutrophil Count 5.5 X10^3/uL (2.0-7.7); Basophil# 0.02 X10^3/uL; Basophil% 0.3 % (0-1); Eosinophil# 0.14 X10^3/uL; Hematocrit 28.7 % (37-47); Hemoglobin 9.5 g/dl (12.0-15.0); Lymphocyte # 0.91 X10^3/ul (4.0); Lymphocyte % 12.7 % (19-41); Mean Corp Hgb Conc 33.1 g/gl (32-36); Mean Corpuscular Hgb 30.7 pg (27.0-32.0); Mean Corpuscular Volume 92.9 fL (81-99); Monocyte# 0.55 X10^3/uL; Monocyte% 7.7 % (0-10); Neutrophil # 5.52 X10^3/uL (2.7-7.7); Neutrophil % 76.9 % (47-70); POSITIVE COUNT NO; POSITIVE DIFFERENTIAL NO; POSITIVE MORPHOLOGY NO; Platelet Count 121 K/mm3 (150-450); RBC Distribution Width CV 15.2 % (11.6-14.6); RBC Distribution Width SD 49.1 fl (35.1-43.9); Red Blood Count 3.09 M/mm3 (4.2-5.4); White Blood Count 7.2 K/mm3 (4.4-11.0)
--- NOTE | 2018-05-24 13:15 | DCINST_ITS ---
- Discharge Diagnoses Current Active Problems: Current Active and Chronic Problems (Last Reviewed 05/21/18 @ 10:06 by Chester Salgado MD) Acute blood loss anemia (Acute) GI bleed (Acute) You will use the following diet at home:: Cardiac Your food should be the consistency of: Regular Discharge Activity: Return to Normal Activity Weight Bearing Status: Weight bearing as tolerated Call your doctor if you observe: Fever of 101 or Higher, Shortness of breath, Dizziness, Fainting spells, Chest pain, Prolonged hiccoughing, Uncontrolled pain Instructions: Peptic Ulcer Allergies/Adverse Reactions: Allergies No Known Allergies Allergy (Verified 05/20/18 22:26) Medications to take at Discharge metoprolol tartrate 100 mg tablet 100 mg PO BID 06/10/17 spironolactone 50 mg tablet 50 mg PO QDAY #90 tab 12/10/17 furosemide 40 mg tablet 40 mg PO BID tab 05/20/18 Pantoprazole Sodium [Protonix] 40 mg PO BID #90 tablet 05/24/18 The following prescriptions were given: Pantoprazole Sodium [Protonix] 40 mg PO BID #90 tablet Orders to be completed after discharge: CBC W/Diff, Automated Time Frame: 05/28/18, Location: Laboratory Prothrombin Time w/INR Time Frame: 05/28/18, Location: Laboratory Primary Care Physician: Austin Singh DO [Primary Care Provider] - Please follow up with your Primary Care Physician in: 1 week. Test Results: Test results from this visit will be discussed in further detail at your follow- up appointment, if applicable. Please Follow Up With: Chester Salgado MD When: please call his office.
--- NOTE | 2018-05-24 15:26 | PCM.DC.SUM ---
Discharge Date and Diagnosis Date of Admission: 05/21/18 Date of Discharge: 05/24/18 - Primary Discharge Diagnosis #1 acute blood loss symptomatic anemia. #2 GI bleed. #3 duodenal ulcer. #4 acute kidney injury. #5 Coumadin-induced coagulopathy. - Secondary Discharge Diagnosis Chronic Problems (Last Reviewed 05/21/18 @ 10:06 by Chester Salgado MD) Chronic diastolic (congestive) heart failure (Chronic) Hypertension (Chronic) Nonrheumatic mitral (valve) insufficiency (Chronic) Nonrheumatic tricuspid (valve) insufficiency (Chronic) Atrial enlargement, bilateral (Chronic) Dilated cardiomyopathy (Chronic) Atrial fibrillation (Chronic) Hospital Course and Treatment Imaging Results: Clinical Impression(s) from Imaging Studies Chest X-Ray 05/20/18 23:38 IMPRESSION: 1. Right midlung mild subsegmental atelectasis. 2. No CHF or pneumonia. at 0038 Reported and signed by: Noé Dunne MD Electronically Signed: Noé Dunne, at 0:36 EST Tel , Service support , Abdomen/Pelvis CT 05/20/18 23:56 IMPRESSION: 1. Cholelithiasis. No biliary dilatation or acute disease seen. 2. Cardiomegaly with multichamber enlargement. 3. Chronic diastases recti and additional chronic changes, as above. Individualized dose optimization techniques were used for this CT. at 0052 Reported and signed by: Noé Dunne MD Electronically Signed: Noé Dunne, at 0:50 EST Tel , Service support , Dr. Salgado, general surgery. Procedures: Blood transfusion, EGD Summary of Care Provided: Patient seen and examined on the day of discharge and appeared to be stable to be discharged home. She denied significant symptoms. Denies any more dizziness or lightheadedness, no weakness. He had a bowel movement the night before discharge and that was normal without blood stools. Denied hematemesis or hematochezia. Her vital signs are stable. On the day of discharge, her CBC revealed hemoglobin 6.9 and platelet count of 17,000. Microbiology lab called and they stated that the sample was clotted. Repeat CBC done and revealed hemoglobin of 8.8% on platelet count of 102,000. This is a 72 years old female patient presented to the ED because of weakness, dizziness and melena she was found to have acute severe blood loss anemia secondary to GI bleed which is attributed to duodenal ulcer. On admission, her hemoglobin was 7.3 g/dL. Her INR was 5. Recent was on Coumadin for history of chronic atrial fibrillation. She received a total of 5 units of packed RBCs and 2 units of fresh frozen plasma as well as vitamin K injection. She was treated with IV fluids and IV Protonix. She underwent upper EGD that revealed duodenal ulcer with adherent blood clot without evidence of active bleeding. Her INR returned back to normal and she was prescription of Coumadin. She was found to have acute kidney injury and her BUN was highly elevated which is also attributed to GI bleed. Her admission creatinine was 1.3 and her BUN admission was 162. With IV fluid therapy, BUN came down to 19 and creatinine came down to 0.86. After blood transfusion, hemoglobin remained stable and patient symptoms improved. In the morning of the day of discharge, hemoglobin was 8.8 g/dL and platelet count was 102,000. Repeat CBC done in the afternoon of the day of discharge revealed hemoglobin of 9.5 g/dL and platelet count of 121,000. Patient kept off Coumadin and her INR upon discharge was 1.1. Patient discharged home in a stable medical condition, Coumadin discontinued, discharged on Protonix twice daily, continued on Lasix, metoprolol and Aldactone, order given to repeat CBC and INR in 4 days, plan to follow-up with Dr. Salgado as outpatient according to his recommendation, recommended follow-up with PCP in 1 week. - Physical Exam General: Alert, Oriented x3, Cooperative, No apparent distress HEENT: Atraumatic, PERRLA, EOMI, Normocephalic Oral: Moist Mucosa, No Gingival or Mucosal Lesions/ Ulcerations Neck: Supple, No JVD, Negative Carotid Bruits, Trachea Midline, Thyroid Normal Size and Texture Lungs: Clear to auscultation, No rhonchi, No wheeze, No rales, Diminished Cardiovascular: Normal S1, Normal S2, No murmurs, PMI Normal, Irregular Rate Abdomen: Bowel Sounds Present, Soft, Non Tender, Non-Distended, No Hepato-splenomegaly Extremities: No clubbing, No cyanosis, No edema Skin: No rashes, No breakdown Lymphatic: No Cervical, Supraclavicular, or Inguinal Adenopathy Neurological: Cranial nerves II-XII grossly intact, Neuro grossly intact Psych/Mental Status: Normal Affect, Appropriate Vital Signs Temp Pulse Resp BP Pulse Ox 98.0 F 70 16 105/67 99 05/24/18 09:20 05/24/18 11:08 05/24/18 09:20 05/24/18 09:59 05/24/18 09:20 Oxygen Flow Rate (L/min) 2 Oxygen Delivery Method Room Air Weight: 189 lb 13.088 oz Body Mass Index (BMI) 35.0 Intake and Output for Last 24 Hours 05/22/18 05/23/18 05/24/18 23:59 23:59 23:59 Intake Total 1980 1920 / 1920 240 / 240 Output Total 1450 / 1450 Balance 531 / 531 1920 / 1920 240 / 240 Laboratory Tests Past 24 Hrs 05/23/18 05/24/18 05/24/18 16:05 05:28 05:28 WBC Cancelled Corrected WBC Cancelled RBC Cancelled Hgb 9.3 L Cancelled Hct 28.3 L Cancelled MCV Cancelled MCH Cancelled MCHC Cancelled RDW Cancelled RDW Differential Cancelled Plt Count Cancelled MPV Cancelled Immature Gran % (Auto) Cancelled Neut % (Auto) Cancelled Lymph % (Auto) Cancelled Custer % (Auto) Cancelled Eos % (Auto) Cancelled Baso % (Auto) Cancelled Immature Gran # (Auto) Cancelled Absolute Neuts (auto) Cancelled Absolute Lymphs (auto) Cancelled Absolute Monos (auto) Cancelled Total Counted Cancelled Neutrophils % (Manual) Cancelled Band Neutrophils % Cancelled Lymphocytes % (Manual) Cancelled Monocytes % (Manual) Cancelled Eosinophils % (Manual) Cancelled Basophils % (Manual) Cancelled Metamyelocytes % Cancelled Myelocytes % Cancelled Promyelocytes % Cancelled Blast Cells % Cancelled Plasma Cell % (Manual) Cancelled Other Cells % Cancelled Lymphocytes # Cancelled Nucleated RBCs/100 WBC Cancelled Differential Comment Cancelled Diff Path Review Cancelled Hypersegmented Neuts Cancelled Atypical Lymphocytes Cancelled Reactive Lymphocytes Cancelled Smudge Cells Cancelled Eosinophilia # Cancelled Basophilia # Cancelled Toxic Granulation Cancelled Dohle Bodies Cancelled Yashira Rods Cancelled Platelet Estimate Cancelled Plt Morphology Comment Cancelled RBC Morphology Cancelled Polychromasia Cancelled Hypochromasia Cancelled Poikilocytosis Cancelled Basophilic Stippling Cancelled Anisocytosis Cancelled Microcytosis Cancelled Macrocytosis Cancelled Spherocytes Cancelled Sickle Cells Cancelled Target Cells Cancelled Tear Drop Cells Cancelled Ovalocytes Cancelled Stomatocytes Cancelled Springer-Medicine Bow Bodies Cancelled Vinay Cells Cancelled Bite Cells Cancelled Acanthocytes (Spur) Cancelled Rouleaux Cancelled Schistocytes Cancelled PT 14.3 INR 1.1 APTT Sodium Potassium Chloride Carbon Dioxide Anion Gap BUN Creatinine Estim Creat Clear Calc Est GFR (MDRD) Af Amer Est GFR (MDRD) Non-Af BUN/Creatinine Ratio Glucose Calcium Lipase Blood Type Antibody Screen Crossmatch 05/24/18 05/24/18 05/24/18 05:28 05:28 07:41 WBC Corrected WBC RBC Hgb Hct MCV MCH MCHC RDW RDW Differential Plt Count MPV Immature Gran % (Auto) Neut % (Auto) Lymph % (Auto) Custer % (Auto) Eos % (Auto) Baso % (Auto) Immature Gran # (Auto) Absolute Neuts (auto) Absolute Lymphs (auto) Absolute Monos (auto) Total Counted Neutrophils % (Manual) Band Neutrophils % Lymphocytes % (Manual) Monocytes % (Manual) Eosinophils % (Manual) Basophils % (Manual) Metamyelocytes % Myelocytes % Promyelocytes % Blast Cells % Plasma Cell % (Manual) Other Cells % Lymphocytes # Nucleated RBCs/100 WBC Differential Comment Diff Path Review Hypersegmented Neuts Atypical Lymphocytes Reactive Lymphocytes Smudge Cells Eosinophilia # Basophilia # Toxic Granulation Dohle Bodies Yashira Rods Platelet Estimate Plt Morphology Comment RBC Morphology Polychromasia Hypochromasia Poikilocytosis Basophilic Stippling Anisocytosis Microcytosis Macrocytosis Spherocytes Sickle Cells Target Cells Tear Drop Cells Ovalocytes Stomatocytes Springer-Medicine Bow Bodies Vinay Cells Bite Cells Acanthocytes (Spur) Rouleaux Schistocytes PT INR APTT 24.9 Sodium 140 Potassium 4.1 Chloride 110 H Carbon Dioxide 21.0 Anion Gap 9 BUN 19 H Creatinine 0.86 Estim Creat Clear Calc 45.93 Est GFR (MDRD) Af Amer 84 Est GFR (MDRD) Non-Af 69 BUN/Creatinine Ratio 22.2 H Glucose 102 Calcium 8.0 L Lipase Blood Type Cancelled Antibody Screen Cancelled Crossmatch See Detail 05/24/18 05/24/18 05/24/18 07:41 07:41 12:43 WBC 6.6 7.2 Corrected WBC RBC 2.88 L 3.09 L Hgb 8.8 L 9.5 L Hct 26.5 L 28.7 L MCV 92.0 92.9 MCH 30.6 30.7 MCHC 33.2 33.1 RDW 15.1 H 15.2 H RDW Differential 49.1 H 49.1 H Plt Count 102 L 121 L MPV 9.8 10.0 Immature Gran % (Auto) 0.200 0.400 Neut % (Auto) 78.0 H 76.9 H Lymph % (Auto) 13.4 L 12.7 L Custer % (Auto) 6.1 7.7 Eos % (Auto) 2.1 2.0 Baso % (Auto) 0.2 0.3 Immature Gran # (Auto) Absolute Neuts (auto) 5.1 5.5 Absolute Lymphs (auto) 0.88 0.91 Absolute Monos (auto) Total Counted Not Reportable Not Reportable Neutrophils % (Manual) Band Neutrophils % Lymphocytes % (Manual) Monocytes % (Manual) Eosinophils % (Manual) Basophils % (Manual) Metamyelocytes % Myelocytes % Promyelocytes % Blast Cells % Plasma Cell % (Manual) Other Cells % Lymphocytes # Nucleated RBCs/100 WBC Differential Comment Diff Path Review Hypersegmented Neuts Atypical Lymphocytes Reactive Lymphocytes Smudge Cells Eosinophilia # Basophilia # Toxic Granulation Dohle Bodies Yashira Rods Platelet Estimate Plt Morphology Comment RBC Morphology Polychromasia Hypochromasia Poikilocytosis Basophilic Stippling Anisocytosis Microcytosis Macrocytosis Spherocytes Sickle Cells Target Cells Tear Drop Cells Ovalocytes Stomatocytes Springer-Medicine Bow Bodies [place] Cells Bite Cells Acanthocytes (Spur) Rouleaux Schistocytes PT INR APTT Sodium Potassium Chloride Carbon Dioxide Anion Gap BUN Creatinine Estim Creat Clear Calc Est GFR (MDRD) Af Amer Est GFR (MDRD) Non-Af BUN/Creatinine Ratio Glucose Calcium Lipase 212 Blood Type Antibody Screen Crossmatch Discharge Activity: Return to Normal Activity Weight Bearing Status: Weight bearing as tolerated Call your doctor if you observe: Fever of 101 or Higher, Shortness of breath, Dizziness, Fainting spells, Chest pain, Prolonged hiccoughing, Uncontrolled pain Home Medications: Medications to take at Discharge metoprolol tartrate 100 mg tablet 100 mg PO BID 06/10/17 spironolactone 50 mg tablet 50 mg PO QDAY #90 tab 12/10/17 furosemide 40 mg tablet 40 mg PO BID tab 05/20/18 Pantoprazole Sodium [Protonix] 40 mg PO BID #90 tablet 05/24/18 Following Prescrptions Were Given to Patient: Pantoprazole Sodium [Protonix] 40 mg PO BID #90 tablet Other Amb Orders: CBC W/Diff, Automated Time Frame: 05/28/18, Location: Laboratory Prothrombin Time w/INR Time Frame: 05/28/18, Location: Laboratory Primary Care Physician: Austin Singh DO [Primary Care Provider] - Please follow up with your Primary Care Physician in: 1 week. Please Follow Up With: Chester Salgado MD When: please call his office. Patient Instructions: Peptic Ulcer Disposition: Home Minutes spent on discharge:: 32 Patient Condition:: Stable Medical Necessity - Tobacco Use Smoking Status: Never smoker Meaningful Use Info Meaningful Use Diagnoses (Choose all that apply): None applicable Code Visit Inpatient E&M: 64222 Disch Hosp
--- NOTE | 2018-05-26 14:32 | CASEMGMT ---
RN CM Discharge Follow-up Phone Call: THOMAS: Angela Strata: 3 Call Date: 05/26/18 Discharge Date: 05/24/18 Time of Call: 1430 Duration: 0 ? Admitting Diagnosis: GI bleed, ROSANA, duodenal ulcer This RN CM attempted to contact pt via telephone in regard to discharge follow-up. Voicemail received and message left requesting a return call if there are any questions or concerns. Niesha Matta RN
== END 2018-05-24 15:22 | disposition home or self-care (01) | DRG 811 ==
LOC: ED 05-21 01:19 → ICU 05-21 02:04 → PCU 05-22 16:00
PROVIDERS: Internal Medicine Critical Care Medicine; Surgery; Admitting Provider Hospitalist; Emergency Provider Emergency Medicine; Family Provider Family Medicine; PCP Family Medicine; Visit Provider Hospitalist
PROC: 0DJ08ZZ Inspection of Upper Intestinal Tract, Via Natural or Artificial Opening Endoscopic (ICD-10-PCS; CPT 43235; principal; 2018-05-21 12:25)
DX: D62 Acute posthemorrhagic anemia (principal); K26.4 Chronic or unspecified duodenal ulcer with hemorrhage; N17.9 Acute kidney failure, unspecified; I50.32 Chronic diastolic (congestive) heart failure; I42.0 Dilated cardiomyopathy; D68.32 Hemorrhagic disorder due to extrinsic circulating anticoagulants; T45.515A Adverse effect of anticoagulants, initial encounter; I11.0 Hypertensive heart disease with heart failure; I36.1 Nonrheumatic tricuspid (valve) insufficiency; I34.0 Nonrheumatic mitral (valve) insufficiency; I48.2 Chronic atrial fibrillation; Z79.899 Other long term (current) drug therapy
CPT/HCPCS: 36415; 71046; 74176; 80048; 80053; 81001; 82274; 83690; 85014; 85018; 85025; 85610; 85730; 86850; 86900; 86920; 86922; 93005; 97110; 97162; 97165; 97530; 99285; J7030; J7040; J7050; J7120; P9016; P9017; A4216; J3490

== ENCOUNTER → 2018-05-29 15:11 | Outpatient (CLI) | payer SELFPAY ==
[2018-05-21 03:06] VITALS: BMI 35.0
[2018-05-29 16:53] LABS: Absolute Lymphocyte Count 1.12 X10^3/ul (0.83-4.51); Absolute Neutrophil Count 3.9 X10^3/uL (2.0-7.7); Basophil# 0.05 X10^3/uL; Basophil% 0.9 % (0-1); Eosinophil# 0.09 X10^3/uL; Eosinophils% 1.5 % (0-5); Hematocrit 37.6 % (37-47); Hemoglobin 12.5 g/dl (12.0-15.0); Lymphocyte # 1.12 X10^3/ul (4.0); Lymphocyte % 19.3 % (19-41); Mean Corp Hgb Conc 33.2 g/gl (32-36); Mean Corpuscular Volume 93.3 fL (81-99); Mean Platelet Vol. 10.3 fl (6.2-12.0); Monocyte% 10.3 % (0-10); Neutrophil # 3.94 X10^3/uL (2.7-7.7); Neutrophil % 67.8 % (47-70); Platelet Count 287 K/mm3 (150-450); RBC Distribution Width CV 15.1 % (11.6-14.6); RBC Distribution Width SD 48.9 fl (35.1-43.9); Red Blood Count 4.03 M/mm3 (4.2-5.4); White Blood Count 5.8 K/mm3 (4.4-11.0)
[2018-05-29 16:54] LABS: POSITIVE COUNT NO; POSITIVE DIFFERENTIAL NO; POSITIVE MORPHOLOGY NO; Prothrombin Time (Protime)PT. 13.2 SECONDS (11.7-14.9)
== END ==
PROVIDERS: Family Provider Family Medicine; PCP Family Medicine; Referring Provider Hospitalist; Visit Provider Hospitalist
DX: K92.2 Gastrointestinal hemorrhage, unspecified (principal); D62 Acute posthemorrhagic anemia; I48.2 Chronic atrial fibrillation; Z79.01 Long term (current) use of anticoagulants
CPT/HCPCS: 36415; 85025; 85610

== ENCOUNTER 2018-08-06 08:17 | Day surgery (SDC) | payer SELFPAY ==
[2018-07-21 14:38] VITALS: BMI 32.8
[2018-08-06] VITALS (7 sets, daily range): BP systolic 79–110; BP diastolic 48–61; PULSE 53–67; RESP 16–18; TEMP 35.9–36.3; O2SAT 96–100; BMI 32.5
--- NOTE | 2018-08-06 09:30 | IMM_PTH ---
PATIENT: HEDY BANSAL LOC: EN U#:[id number] AGE/SX: 73/F ROOM: RE08/06/[address]: Dr. Chester Salgado MD : 1945 BED: DIS: 08/06/2018 SPEC #: [id number] RECD: 08/06/18 14:10 STATUS: JAMES RERadha #: [id number] NATHANIEL: 08/06/18 09:[address]: Chester Salgado DEPT: IMMUNOHISTOCHEMISTRY RECD BY: Jaquelin Beach ENTERED: 08/06/18 14:11 SP TYPE: IMMUNO OTHR DR: Dr. Austin Singh, DO Tissues: Stomach, NOS Procedures: H Pylori (initial) PHYSICIAN & INSTITUTION [place] [id number] SPECIMEN INFORMATION: Tissue Source: Antrum biopsy Clinical Info: Duodenal ulcer Specimen Number: [id number] CPT code: 83907 METHODOLOGY: Deparaffinized sections of prefer/formalin-fixed tissue or PAP/DQ stained slides are incubated with monoclonal/polyclonal antibodies/oligonucleotide probes. Localization is made via biotin free immunoperoxidase method. Appropriate controls are performed and reacted as expected. Results on target cell population are indicated in the following table: RESULTS: ANTIBODY / CLONE RESULT H Pylori (polyclonal) negative These tests were developed and their performance characteristics determined by [facility]. They may not have been cleared or approved by the U.S. Food and Drug Administration. The FDA has determined that such clearance or approval is not necessary. INTERPRETATION: Antrum biopsy: Negative for Helicobacter pylori organisms. AM:braden 08/07/18
--- NOTE | 2018-08-06 09:30 | EGD_PTH ---
PATIENT: HEDY BANSAL LOC: EN U#:[id number] AGE/SX: 73/F ROOM: RE08/06/[address]: Dr. Chester Salgado MD : 1945 BED: DIS: 08/06/2018 SPEC #: [id number] RECD: 08/06/18 10:50 STATUS: JAMES FAMILIA #: [id number] NATHANIEL: 08/06/18 09:[address]: Chester Salgado DEPT: SURGICAL PATHOLOGY RECD BY: Mian Ribeiro ENTERED: 08/06/18 13:27 SP TYPE: EGD BIOPSY OTHR DR: Dr. Austin Singh, DO Tissues: Gastric mucous membrane Procedures: Surgery Specimen Level IV HEADER OPERATION: EGD ([facility]) PRE-OP DIAGNOSIS: Duodenal ulcer TISSUE SUBMITTED: Antrum biopsy for H. pylori and path MICROSCOPIC DIAGNOSIS Gastric antrum, biopsy: Mild chronic gastritis. AM:braden 08/07/18 COMMENT The results of immunohistochemistry for Helicobacter pylori will be reported separately ([id number]). MICROSCOPIC DESCRIPTION Slides are reviewed. GROSS DESCRIPTION Received in fixative is one container labeled with the patient's name and designated antrum biopsy. The specimen consists of one irregular fragment of light hunt soft tissue that measures 0.7 x 0.2 x 0.1 cm. The specimen is totally submitted in one cassette. / AM:braden 08/06/18 TC:3 CPT: 60607
--- NOTE | 2018-08-06 09:35 | OP.ENDO_ITS ---
Patient Name: Bhavna Wong Procedure Date: 08/06/2018 9:18 AM Date of : 1945 Age: 73 Procedure: Upper GI endoscopy Indications: Surveillance procedure, Chronic peptic ulcer Providers: Chester Salgado MD Medicines: See the Anesthesia note for documentation of the administered medications Patient Profile: This is a 73 year old female. Refer to note in patient chart for documentation of history and physical. Complications: No immediate complications. Procedure: Pre-Anesthesia Assessment: - Prior to the procedure, a History and Physical was performed, and patient medications and allergies were reviewed. The patient's tolerance of previous anesthesia was also reviewed. The risks and benefits of the procedure and the sedation options and risks were discussed with the patient. All questions were answered, and informed consent was obtained. Prior Anticoagulants: The patient has taken no previous anticoagulant or antiplatelet agents. ASA Grade Assessment: II - A patient with mild systemic disease. After reviewing the risks and benefits, the patient was deemed in satisfactory condition to undergo the procedure. After obtaining informed consent, the endoscope was passed under direct vision. Throughout the procedure, the patient's blood pressure, pulse, and oxygen saturations were monitored continuously. The gastroscope was introduced through the mouth, and advanced to the second part of duodenum. The upper GI endoscopy was accomplished without difficulty. The patient tolerated the procedure well. Scope In: 9:28:05 AM Scope Out: 9:30:36 AM Total Procedure Duration Time 0 hours 2 minutes 31 seconds Findings: The examined esophagus was normal. No biopsies or other specimens were collected for this exam. The entire examined stomach was normal. Biopsies were taken with a cold forceps for Helicobacter pylori testing. One non-bleeding cratered duodenal ulcer with no stigmata of bleeding was found in the duodenal bulb. The lesion was 3 mm in largest dimension. Impression: - Normal esophagus. No specimens collected. - Normal stomach. Biopsied. - One non-bleeding duodenal ulcer with no stigmata of bleeding. Recommendation: - Await pathology results. - Repeat upper endoscopy in 6 weeks for surveillance. - Return to my office in 1 week. - Continue present medications. Procedure Code(s): --- Professional --- 29006, Esophagogastroduodenoscopy, flexible, transoral; with biopsy, single or multiple Diagnosis Code(s): --- Professional --- K26.9, Duodenal ulcer, unspecified as acute or chronic, without hemorrhage or perforation K27.7, Chronic peptic ulcer, site unspecified, without hemorrhage or perforation CPT copyright 2017 [employer]. All rights reserved. The codes documented in this report are preliminary and upon fire alarm technician review may be revised to meet current compliance requirements. MD Chester Santiago MD 08/06/2018 9:35:25 AM This report has been signed electronically. Number of Addenda: 0 Note Initiated On: 08/06/2018 9:18 AM
== END 2018-08-06 10:43 | disposition home or self-care (01) ==
LOC: EN 08:17 → AC 08:18
PROVIDERS: Family Provider Family Medicine; PCP Family Medicine; Referring Provider Surgery; Visit Provider Surgery
PROC: 0DJ08ZZ Inspection of Upper Intestinal Tract, Via Natural or Artificial Opening Endoscopic (ICD-10-PCS; CPT 43235; principal; 2018-08-06 09:25)
DX: K26.7 Chronic duodenal ulcer without hemorrhage or perforation (principal); K29.50 Unspecified chronic gastritis without bleeding; K21.9 Gastro-esophageal reflux disease without esophagitis; I11.0 Hypertensive heart disease with heart failure; I50.32 Chronic diastolic (congestive) heart failure; I48.91 Unspecified atrial fibrillation; Z79.899 Other long term (current) drug therapy
CPT/HCPCS: 43239; 88305; 88342; J7120; J2405

== ENCOUNTER 2018-10-16 06:54 | Day surgery (SDC) | payer SELFPAY ==
[2018-09-25 14:41] VITALS: BMI 32.5
[2018-09-25 15:42] VITALS: BMI 33.6
[2018-10-16] VITALS (8 sets, daily range): BP systolic 63–98; BP diastolic 37–60; PULSE 57–71; RESP 14–18; TEMP 36.2–36.6; O2SAT 90–100; BMI 32.1
--- NOTE | 2018-10-16 08:36 | OP.ENDO_ITS ---
10/16/2018 Austin Singh Re : Upper GI endoscopy procedure for Bhavna Hinesr Samantha This procedure was performed on September. My impressions and recommendations are as follows: Impressions : - Normal esophagus. No specimens collected. - Z-line regular, 40 cm from the incisors. - Normal stomach. No specimens collected. - Normal examined duodenum. No specimens collected. Recommendations : - Discharge patient to home. - Resume previous diet. - Continue present medications. - Repeat upper endoscopy (date not yet determined). - Return to primary care physician (date not yet determined). My findings are described in the full procedure note, which is enclosed. If I can be of further assistance, please feel free to contact me at Doctor phone number(s): , Fax: [phone], Work: . Sincerely, MD Chester Santiago MD 10/16/2018 8:35:42 AM This report has been signed electronically.
== END 2018-10-16 09:25 | disposition home or self-care (01) ==
LOC: EN 07:00 → AC 07:01
PROVIDERS: Family Provider Family Medicine; PCP Family Medicine; Referring Provider Surgery; Visit Provider Surgery
PROC: 0DJ08ZZ Inspection of Upper Intestinal Tract, Via Natural or Artificial Opening Endoscopic (ICD-10-PCS; CPT 43235; principal; 2018-10-16 08:25)
DX: K26.3 Acute duodenal ulcer without hemorrhage or perforation (principal); K21.9 Gastro-esophageal reflux disease without esophagitis; I11.0 Hypertensive heart disease with heart failure; I50.32 Chronic diastolic (congestive) heart failure; I34.0 Nonrheumatic mitral (valve) insufficiency; I36.1 Nonrheumatic tricuspid (valve) insufficiency; I42.0 Dilated cardiomyopathy; I48.91 Unspecified atrial fibrillation; Z79.899 Other long term (current) drug therapy
CPT/HCPCS: 43235; J7120; A4216

== ENCOUNTER → 2019-12-29 16:43 | Outpatient (CLI) | payer OTHER, SELFPAY ==
[2019-12-29 16:09] VITALS: BMI 34.5
[2019-12-29 17:22] LABS: Hematocrit 39.5 % (37-47); Hemoglobin 12.3 g/dL (12.0-15.0); Mean Corp Hgb Conc 31.1 g/dL (32-36); Mean Corpuscular Hgb 25.9 pg (27.0-32.0); Mean Corpuscular Volume 83.2 fL (81-99); Platelet Count 165 K/mm3 (150-450); RBC Distribution Width CV 19.1 % (11.6-14.6); RBC Distribution Width SD 55.8 fl (35.1-43.9); Red Blood Count 4.75 M/mm3 (4.2-5.4); White Blood Count 5.7 K/mm3 (4.4-11.0)
[2019-12-29 18:05] LABS: Anion Gap 7 (5-15); BUN 53 mg/dL (7-18); BUN/Creat Ratio 27.5 RATIO (10-20); Calcium,Total 9.2 mg/dL (8.5-10.1); Chloride 101 mmol/L (98-107); Creatinine, Serum 1.93 mg/dL (0.55-1.02); EST Glomerular Filtration Rate 27 mL/min (>60); Est Glom Filt Rate - Afr Amer 33 mL/min (>60); Glucose 95 mg/dL (74-106); Potassium 3.8 mmol/L (3.5-5.1); Sodium Level 136 mmol/L (136-145)
== END ==
PROVIDERS: PCP Family Medicine; Referring Provider Internal Medicine Cardiovascular Disease
DX: I42.8 Other cardiomyopathies (principal)
CPT/HCPCS: 36415; 80048; 85027

== ENCOUNTER → 2020-01-27 14:59 | Outpatient (CLI) | payer SELFPAY ==
[2019-12-29 16:09] VITALS: BMI 34.5
--- NOTE | 2020-01-27 15:00 | ECHOD_ITS ---
Reason For Study: Atrial Fib-Flutter Procedure This was a 2D Doppler, Color Flow transthoracic echocardiogram. Exam performed in department. Left Ventricle Normal LV size. Left ventricular systolic function is normal. The estimated ejection fraction is 55 %. No regional wall motion abnormalities noted. Right Ventricle Mildly dilated right ventricle. Normal systolic function. Atria Normal left atrium. The right atrium is moderately enlarged. Mitral Valve Normal mitral valve. Moderate (2+) eccentric mitral valve insufficiency. Tricuspid Valve Normal tricuspid valve. Mild tricuspid valve insufficiency. Pulmonary artery systolic pressure is 24 mmHg. Aortic Valve Trisinus/trileaflet aortic valve. Mild focal aortic valve calcification. Mild (1+) aortic valve insufficiency. Pulmonic Valve Normal pulmonic valve. Great Vessels Normal aortic root. The pulmonary artery is normal size. Normal inferior vena cava. Pericardium/Pleural No pericardial effusion. Medication 22 gauge I.V. with prn adaptor inserted into right arm. Performed a rapid injection of agitated mix of 9 cc saline and 1cc air to assess for atrial septal defect. MMode/2D Measurements & Calculations LVIDd: 4.7 cm IVSd: 1.1 cm Ao root diam: 3.2 cm LVIDs: 3.1 cm LVPWd: 0.91 cm RVDd: 3.5 cm FS: 34.0 % LAV(MOD-bp): 91.5 ml LA A4 area: 26.1 cm2 LA dimension(2D): 5.8 cm LAV(MOD-bp) Indexed: 50.3 ml/m2 LAV(MOD-sp2): 104.3 ml LAV(MOD-sp4): 81.2 ml RA A4 area: 30.2 cm2 Doppler Measurements & Calculations MV E max emani: 108.2 cm/sec Ao V2 max: 137.4 cm/sec AI max emani: 396.6 cm/sec Ao max P.6 mmHg AI max P.9 mmHg Ao V2 mean: 88.3 cm/sec AI dec slope: 183.3 cm/sec2 Ao mean P.5 mmHg AI P1/2t: 633.6 msec Ao V2 VTI: 29.6 cm LV V1 max: 73.9 cm/sec PA V2 max: 66.3 cm/sec TR max emani: 231.7 cm/sec LV V1 max P.2 mmHg TR max P.5 mmHg LV V1 mean P.95 mmHg LV V1 mean: 45.3 cm/sec LV V1 VTI: 15.5 cm Interpretation Summary Normal LV size. Left ventricular systolic function is normal. The estimated ejection fraction is 55 %. Moderate (2+) eccentric mitral valve insufficiency. The right atrium is moderately enlarged. Ordering Physician: Raghu Lee Referring Physician: Raghu Lee Performed By: Berenice Cruz RVT, RDCS and Student
== END ==
PROVIDERS: PCP Family Medicine; Referring Provider Internal Medicine Cardiovascular Disease; Visit Provider Internal Medicine Cardiovascular Disease
DX: I48.11 Longstanding persistent atrial fibrillation (principal)
CPT/HCPCS: 93306

== ENCOUNTER 2021-07-05 15:43 | Outpatient (CLI) | payer SELFPAY ==
--- NOTE | 2021-07-05 16:08 | RAD_ITS ---
HISTORY: PRE OP EXAMINATION/TECHNIQUE: XR Chest 2 Views: COMPARISON: 05/20/18 FINDINGS: LINES/DEVICES: None. LUNGS: No airspace consolidation. Unremarkable interstitium. No effusion. No pneumothorax. MEDIASTINUM: Unchanged cardiomegaly. MUSCULOSKELETAL: No acute osseous finding. RAD/Chest PA and Lateral IMPRESSION: Cardiomegaly without acute airspace disease or florid edema. at 0118 Reported and signed by: Noé Butler MD Electronically Signed: Noé Butler MD at 1:17 EST Tel , Service support ,
== END 2021-07-05 23:59 | disposition short-term general hospital (02) ==
LOC: PSN 15:45
PROVIDERS: PCP Family Medicine; Visit Provider Orthopaedic Surgery
DX: Z01.810 Encounter for preprocedural cardiovascular examination (principal); Z01.811 Encounter for preprocedural respiratory examination
CPT/HCPCS: 71046; 93005

== ENCOUNTER 2021-09-27 22:18 | Inpatient (IN) | payer OTHER, SELFPAY ==
[2021-09-27 22:19] VITALS: BP 135/109; PULSE 126; RESP 18; TEMP 36.2; O2SAT 95; BMI 38.7
--- NOTE | 2021-09-27 22:40 | ED.VIS.GI ---
HPI HPI - GI History of Present Illness Chief Complaint: GI Bleed Detail of Chief Complaint: Rectal bleeding Informant: patient Abdominal Pain/Flank Pain Onset: Today and Hours Context: Gradual Onset Timing: Intermittent Nausea/Vomiting/Emesis GI Symptom: Negative for Nausea and Vomiting Diarrhea/Melena/Hematochezia GI Symptom: Positive for Hematochezia; Negative for Diarrhea and Melena Onset: Today Stool Quality: Negative for Loose Associated Symptoms Associated Symptoms: Negative for Dysuria, Frequency, Hematuria and Urgency Narrative Narrative: 76-year-old female history of A. fib on Eliquis prior GI bleeds. She was recently hospitalized in [place] for a right knee replacement. States she was doing well tonight around 8:00 started having bright red blood and some darker colored blood per rectum. She denies any abdominal pain. She denies any hematemesis. She has required blood transfusions in the past. Prior similar symptoms: Yes Recent Illness/Hospitalization: Yes [facility] Medical History (Updated 09/27/21 @ 22:[address] Angelito Morse MD) (HFpEF) heart failure with preserved ejection fraction Acute blood loss anemia Atrial enlargement, bilateral Chronic combined systolic and diastolic CHF (congestive heart failure) Essential (primary) hypertension GI bleed (04/2018) Longstanding persistent atrial fibrillation Non-ischemic cardiomyopathy Nonrheumatic mitral (valve) insufficiency Obesity Home Medications pantoprazole 40 mg tablet,delayed release 40 mg PO DAILY #30 tab 07/21/18 [Rx Last Taken 08/06/18 06:00] metoprolol tartrate 50 mg tablet 50 mg PO BID 04/14/19 [History Last Taken Unknown] apixaban 2.5 mg tablet 2.5 mg PO BID #60 tab 07/07/20 [Rx Last Taken Unknown] spironolactone 50 mg tablet 50 mg PO QDAY #90 tab 01/19/21 [Rx Last Taken Unknown] furosemide 40 mg tablet 40 mg PO BID #180 tab 07/10/21 [Rx Last Taken Unknown] allopurinol 200 mg PO DAILY 09/27/21 [History Last Taken Unknown] Allergy/AdvReac Type Severity Reaction Status Date / Time warfarin [From Coumadin] Allergy rash Verified 09/27/21 22:24 Family History Father , age 68 from massive [place] CAD (coronary artery disease) Sudden cardiac Mother CVA (cerebral vascular accident) Surgical History (Updated 09/27/21 @ 23:[address] Yoanna Davis MD) History of total right knee replacement s/p vein surgery Social History Smoking Status: Never smoker second hand exposure: No alcohol intake: never substance use type: does not use caffeine: Yes ROS ROS ED ROS Narrative Rectal bleeding. Review of Systems ROS Unobtainable: Denies due to encephalopathy Constitutional Constitutional ED: Denies fever(s) ENT ENT ED: Denies ear pain Cardiovascular Cardiovascular: Denies chest pain Respiratory/Chest Respiratory/Chest: Denies dyspnea Gastrointestinal Gastrointestinal: Denies abdominal pain, constipation, diarrhea, nausea or vomiting Genitourinary Genitourinary ED: Denies dysuria Musculoskeletal Musculoskeletal: Denies myalgias Integumentary Denies rash Neurologic Neurologic: Denies headache(s) Psychiatric Psychiatric: Denies depression Endocrine Endocrinology: Denies polyuria Hematologic/Lymphatic Hematologic/Lymphatic: Denies easy bruising Allergic/Immunologic Allergic/Immunologic ED: Denies urticaria EXAM Physical Exam Narrative Exam Narrative: 76-year-old female vital signs stable she is tachycardic she has a history of A. fib and looks like A. fib on the monitor. Initial blood pressure 135/109. She does not look septic or toxic. H EENT exam unremarkable. Neck nontender. Lungs clear to auscultation bilaterally. Heart irregularly irregular consistent with A. fib with RVR rate about 125. Abdomen soft nontender. present in the room. Rectal exam shows bright red blood. Nontender. No mass. Moving all 4 extremities. Healing right knee replacement surgery incision. Bruising. Neurologically she is awake and alert. Const Vital Signs: 09/27/21 22:19 Temperature 97.2 F L Temperature Source Temporal Pulse Rate 126 H Respiratory Rate 18 Blood Pressure 135/109 H Blood Pressure Mean 117 Pulse Ox 95 Oxygen Delivery Method Room Air Positive well nourished, well developed and obese; Negative for cachectic, contractures or unkempt General Appearance ED: well developed and NAD; Negative for unkempt, cachectic or contractures Nutritional Appearance: obese; Negative for cachectic HEENT Reports moist mucous membranes normocephalic; Negative for atraumatic, trauma or tenderness Eyes PERRL and EOMs intact bilaterally Neck no lymphadenopathy, supple and no JVD General: Negative for tenderness Resp normal respiratory effort and clear to auscultation bilaterally Auscultation: Negative for rales, rhonchi or wheezes Cardio regular rate, regular rhythm, S1 normal heart sound, S2 normal heart sound and no murmurs GI non-tender, non-distended and no masses Auscultation: normoactive bowel sounds Palpation: soft; Negative for tender, guarding, rigid or rebound tenderness present Back/Spine no CVA tenderness General Back: Negative for CVA tenderness Extremity Extremity Narrative: Right knee replacement surgery. Healing incision. Dry and clean. Bruising around the knee and lower thigh. Dorsi plantarflexion intact. Neuro moves all extremities Sensorium / Orientation: alert, oriented to person, oriented to place and oriented to time; Negative for orientation impaired, confused or lethargic Motor Exam: strength 5/5 throughout Psych mental status grossly normal and thought process normal Appearance: Negative for unkempt Skin no wounds Skin Narrative: Healing right knee surgical incision. Lesions: no lesions Rashes: no rashes MDM MDM MDM Narrative Medical decision making narrative: 76-year-old female with lower GI bleed. Very well may be a diverticular bleed versus other etiologies. She has had bleeding ulcers before. She has no pain and no hematemesis. She also has A. fib RVR. Patient need to be admitted. Typed and screened and if necessary give her blood transfusion. Repeat exam patient has developed hypotension. She will be given a liter normal saline. At this moment she does not need blood yet but if she continues to bleed she may need a transfusion. I have not done anything to control her A. fib RVR rate currently because she is running around the 100. I have the hospitalist on page to admit her to the ICU. Patient had a bowel movement with a large amount of blood clots. It was probably at least a liter may be more. Due to that and her transient hypotension she was previously given a fluid bolus and she will be transfused 1 unit. Lab Data Attestation: I reviewed the patient's lab results. Lab results narrative: CBC shows a white count of 12.2. H&H of 10.3 and 31.8. Her most recent hemoglobin was 12.3. Platelets of 355. PT of 15 INR 1.3. PTT of 34. Electrolytes sodium 133 gap 7 BUN 27 creatinine 1.24. Glucose 150. Labs: Laboratory Results - last 24 hr 09/27/21 09/27/21 09/27/21 22:20 22:20 22:20 WBC 12.2 H RBC 3.53 L Hgb 10.3 L Hct 31.8 L MCV 90.1 MCH 29.2 MCHC 32.4 RDW Std Deviation 53.2 H RDW Coeff of Bob 16.2 H Plt Count 355 MPV 9.7 PT 15.3 H INR 1.3 APTT 34.1 Sodium 133 L Potassium 3.6 Chloride 101 Carbon Dioxide 25.0 Anion Gap 7 BUN 27 H Creatinine 1.24 H Estim Creat Clear Calc 30.04 Est GFR (MDRD) Af Amer 54 L Est GFR (MDRD) Non-Af 45 L BUN/Creatinine Ratio 21.8 H Glucose 150 H Calcium 9.1 Magnesium Blood Type Antibody Screen Crossmatch 09/27/21 09/27/21 09/27/21 22:20 22:20 22:20 WBC RBC Hgb Hct MCV MCH MCHC RDW Std Deviation RDW Coeff of Bob Plt Count MPV PT INR APTT Sodium Potassium Chloride Carbon Dioxide Anion Gap BUN Creatinine Estim Creat Clear Calc Est GFR (MDRD) Af Amer Est GFR (MDRD) Non-Af BUN/Creatinine Ratio Glucose Calcium Magnesium 1.8 Blood Type A NEGATIVE Antibody Screen NEGATIVE Crossmatch See Detail Rhythm Strip Rhythm Strip: A-fib Rate: 115 Ectopy: None EKG Initial EKG: Attestation: I personally reviewed and interpreted this EKG as follows: Interpretation: Atrial Fibrillation Comments: Atrial fibrillation rate of 115 no acute signs of SD or ischemia. She has a history of A. fib. Critical Care Time Critical care time (excluding procedures): 30-74 minutes, Including time spent:, Discussing w/Patient &/or Family/Motorsports Technician, Discussing w/Consultants, Arranging Admission or Transfer, Performing Direct Patient Care at Bedside and - (33 min) Discharge Plan Dx/Rx/DC Orders Clinical Impression: Acute lower gastrointestinal bleeding, Chronic anticoagulation, Atrial fibrillation with rapid ventricular response, History of total right knee replacement Disposition Disposition: [facility]
[2021-09-27 22:45] LABS: Hematocrit 31.8 % (37-47); Hemoglobin 10.3 g/dL (12.0-15.0); Mean Corp Hgb Conc 32.4 g/dL (32-36); Mean Corpuscular Hgb 29.2 pg (27.0-32.0); Mean Corpuscular Volume 90.1 fL (81-99); Mean Platelet Vol. 9.7 fl (6.2-12.0); Platelet Count 355 K/mm3 (150-450); RBC Distribution Width CV 16.2 % (11.6-14.6); RBC Distribution Width SD 53.2 fl (35.1-43.9); Red Blood Count 3.53 M/mm3 (4.2-5.4); White Blood Count 12.2 K/mm3 (4.4-11.0)
--- NOTE | 2021-09-27 22:55 | EKG12_ITS ---
Test Reason : GI BLEED Blood Pressure : / mmHG Vent. Rate : 115 BPM Atrial Rate : 125 BPM P-R Int : 000 ms QRS Dur : 078 ms QT Int : 336 ms P-R-T Axes : 000 011 066 degrees QTc Int : 464 ms Atrial fibrillation Nonspecific T wave abnormality Abnormal ECG Confirmed by MISTY PEREZ, RAFAELA ([id number]), editorial clerk MARII STYLES ([id number]) on 10/04/2021 10:55:35 AM Referred By: BENNY Confirmed By:RAFAELA JAY MD
[2021-09-27 22:59] LABS: International Normalized Ratio 1.3; Partial Thromboplast Time 34.1 Seconds (24.1-36.2); Prothrombin Time (Protime)PT. 15.3 SECONDS (11.7-14.9)
[2021-09-27 23:01] LABS: Anion Gap 7 (5-15); BUN 27 mg/dL (7-18); BUN/Creat Ratio 21.8 RATIO (10-20); Calcium,Total 9.1 mg/dL (8.5-10.1); Chloride 101 mmol/L (98-107); Creatinine, Serum 1.24 mg/dL (0.55-1.02); EST Glomerular Filtration Rate 45 mL/min (>60); Est Glom Filt Rate - Afr Amer 54 mL/min (>60); Estimated Creatinine Clearance 30.04 ml/min; Glucose 150 mg/dL (74-106); Potassium 3.6 mmol/L (3.5-5.1); Sodium Level 133 mmol/L (136-145)
[2021-09-27 23:39] LABS: Magnesium 1.8 mg/dL (1.6-2.6)
--- NOTE | 2021-09-27 23:40 | PCM.HP.STD ---
HPI - General General Date of Admission: 09/27/21 Date of Service: 09/27/21 Chief Complaint: Fatigue, malaise, BRBPR HPI Narrative The patient is a 76 y/o F w/ PMHx: Diastolic CHF/Nonischemic cardiomyopathy, HTN, HLD, Chronic anemia/Hx GI bleed, Persistent AF on eliquis, GERD, OA w/ history of recent R TKR per Dr. Duarte in [place] who presents to the [facility] ED on 09/28/21 with history of onset on day of presentation bright red blood per rectum mixed with loose stools with lower abdominal very mild cramping with mild nausea but no emesis prompting immediate ED evaluation and while in the emergency room patient had additional bouts of very nitin bright red blood. She is laying in the ED bed and denies any specific lightheadedness or dizziness currently and is not dyspneic. Patient blood pressure was transiently in the systolics 90s but improved with a very judicious IV fluid bolus. Work-up in the ED included T 97.2, heart rate 126, BP 135/109 however decreased to 99/54, respiratory rate 21, 95 to 100% on room air, CBC with WC 12.2, hemoglobin 10.3 and had been noted to be 12.3 previously on 12/29/2019 however patient baseline prior to this in 2018 had been 7-9, platelets 355 with no differential, coags with PT 15.3, INR 1.3, PTT 34.1, BMP with sodium 133, BUN/creatinine 27/1.24, glucose 150, type and cross for 2 units ordered per discussion with ED physician with plan 1 unit administration especially following additional bout of bright red blood per rectum. ED physician did put a page out to gastroenterology given acute presentation and given transient hypotension with ongoing bouts of bright red blood per rectum on anticoagulant therapy decision to admit patient to the ICU. [facility] Medical History (Updated 09/28/21 @ 00:[address] Yoanna Davis MD) (HFpEF) heart failure with preserved ejection fraction Acute blood loss anemia Atrial enlargement, bilateral Chronic combined systolic and diastolic CHF (congestive heart failure) Essential (primary) hypertension GI bleed (04/2018) Longstanding persistent atrial fibrillation Non-ischemic cardiomyopathy Nonrheumatic mitral (valve) insufficiency Obesity Home Medications pantoprazole 40 mg tablet,delayed release 40 mg PO DAILY #30 tab 07/21/18 [Rx Last Taken 08/06/18 06:00] metoprolol tartrate 50 mg tablet 50 mg PO BID 04/14/19 [History Last Taken Unknown] apixaban 2.5 mg tablet 2.5 mg PO BID #60 tab 07/07/20 [Rx Last Taken Unknown] spironolactone 50 mg tablet 50 mg PO QDAY #90 tab 01/19/21 [Rx Last Taken Unknown] furosemide 40 mg tablet 40 mg PO BID #180 tab 07/10/21 [Rx Last Taken Unknown] allopurinol 200 mg PO DAILY 09/27/21 [History Last Taken Unknown] Allergy/AdvReac Type Severity Reaction Status Date / Time warfarin [From Coumadin] Allergy rash Verified 09/27/21 22:24 Family History Father , age 68 from massive [place] CAD (coronary artery disease) Sudden cardiac Mother CVA (cerebral vascular accident) Surgical History (Updated 09/27/21 @ 23:[address] Yoanna Davis MD) History of total right knee replacement s/p vein surgery Social History Smoking Status: Never smoker second hand exposure: No alcohol intake: never substance use type: does not use caffeine: Yes ROS ROS Narrative Admission Review of Systems: CONSTITUTIONAL: No weight loss, fever, chills, + weakness or fatigue. HEENT: Eyes: No visual loss, blurred vision, double vision or yellow sclerae. Ears, Nose, Throat: No hearing loss, sneezing, congestion, runny nose or sore throat. SKIN: + RLE with incision s/p R TKR. CARDIOVASCULAR: No chest pain, chest pressure or chest discomfort, palpitations, edema, orthopnea, syncopal events. RESPIRATORY: No shortness of breath, cough or sputum, wheezing, hemoptysis. GASTROINTESTINAL: + anorexia, nausea, abdominal cramping, BRBPR, No vomiting, melena. GENITOURINARY: No dysuria, frequency, urgency or retention. NEUROLOGICAL: No headache, dizziness, syncope, paralysis, ataxia, numbness or tingling in the extremities, focal weakness, change in bowel or bladder control, seizure. MUSCULOSKELETAL: + muscle, back pain, joint pain or stiffness. HEMATOLOGIC: + anemia, bleeding or bruising. LYMPHATICS: No enlarged nodes. No history of splenectomy. PSYCHIATRIC: No history of depression or anxiety. ENDOCRINOLOGIC: No reports of sweating, cold or heat intolerance. No polyuria or polydipsia. ALLERGIES: No history of asthma, hives, eczema or rhinitis. Vital Signs Vital Signs Vital Signs: 09/27/21 22:19 Temperature 97.2 F L Temperature Source Temporal Pulse Rate 126 H Respiratory Rate 18 Blood Pressure 135/109 H Blood Pressure Mean 117 Pulse Ox 95 Oxygen Delivery Method Room Air Weight Weight: 204 lb 12.951 oz Body Mass Index (BMI) 38.7 Physical Exam Narrative Physical Examination: General: Awake, alert, oriented x 3 and cooperative, seated upright in the ED bed, fatigued, pale appearing. Skin: Pale color, normal turgor, no icterus, no cyanosis, right total knee status post replacement with incision intact with sherly, expected ecchymoses and swelling with no active bleeding. HEENT: AT/NC, EOMI, PERRLA, dry MM, no carotid bruits or JVD noted. Lungs: Diminished, greater bases, moderate, no rales, ronchi or wheezing. Heart: Irregular irregular; no gallop, rub audible. Abdomen: Soft, obese, mild generalized discomfort to bilateral lower quadrants but no rebound or guarding, ND, hyperactive BS, no HSM. Extremities: No cyanosis, no clubbing, status post right total knee replacement with incision intact, sherly present, no drainage, expected staged ecchymoses and swelling. Neurological: Patient awake, alert, oriented as noted, cognitive function intact; pupils equally reactive to light and accommodation, cranial nerves II-XII grossly normal, moving all 4 extremities, no focal deficits, strength severely globally decreased secondary to acute presentation. Psychiatric: Affect appears fatigued, pale appearing, no acute evidence of depressive or anxiety feelings. Results Lab / Micro Data Result Diagrams: 09/27/21 22:20 09/27/21 22:20 Labs: Laboratory Results - last 24 hr 09/27/21 22:20: WBC 12.2 H, RBC 3.53 L, Hgb 10.3 L, Hct 31.8 L, MCV 90.1, MCH 29.2, MCHC 32.4, RDW Std Deviation 53.2 H, RDW Coeff of Bob 16.2 H, Plt Count 355, MPV 9.7 09/27/21 22:20: PT 15.3 H, INR 1.3, APTT 34.1 09/27/21 22:20: Sodium 133 L, Potassium 3.6, Chloride 101, Carbon Dioxide 25.0, Anion Gap 7, BUN 27 H, Creatinine 1.24 H, Estim Creat Clear Calc 30.04, Est GFR (MDRD) Af Amer 54 L, Est GFR (MDRD) Non-Af 45 L, BUN/Creatinine Ratio 21.8 H, Glucose 150 H, Calcium 9.1 09/27/21 22:20: Blood Type A NEGATIVE, Antibody Screen NEGATIVE 09/27/21 22:20: Magnesium 1.8 Rhythm Strip Rhythm Strip: A-fib Rate: 115 Ectopy: None Assessment & Plan Assessment/Plan (1) Acute lower gastrointestinal bleeding: (2) Atrial fibrillation with rapid ventricular response: (3) Acute blood loss anemia: PLAN: The patient is a 76 y/o F w/ PMHx: Diastolic CHF/Nonischemic cardiomyopathy, HTN, HLD, Chronic anemia/Hx GI bleed, Persistent AF on eliquis, GERD, OA w/ history of recent R TKR per Dr. Duarte in [place] who presents to the [facility] ED on 09/28/21 with history of onset on day of presentation bright red blood per rectum mixed with loose stools with lower abdominal very mild cramping with mild nausea but no emesis prompting immediate ED evaluation and while in the emergency room patient had additional bouts of very nitin bright red blood. #1. Acute GI Bleed w/ resultant Acute on Chronic Blood Loss Anemia w/ Hypotension: admit to the ICU to be cautious, consultation with GI initiated per ED physician with and ICU, maintain on IVFs, obtain serial H+H, planned administer PRBC with planned lasix IV in between units given CHF history with repeat Hgb following, maintain NPO status, maintain on IV PPI. #2. Persistent atrial fibrillation w/ RVR: EKG in ED w/ atrial fibrillation w/ RVR likely secondary to acute presentation with #1 with GI bleed and acute blood loss anemia with some rate improvement with IV fluids. Will maintain on telemetry, obtain cardiac enzyme serial set, obtain magnesium level, obtain ECHO given timeline of last noted, obtain TSH level. Will dose patient x1 now with home metoprolol regimen however if necessary may consider drip. We will discontinue patient Eliquis regimen. #3. Hyperglycemia: Admission glucose 150, certainly could be stress response; however, to be cautious will obtain HgbA1c. #4. Severe osteoarthritis status post recent right total knee replacement: Knee well appearing with sherly in place, no drainage, expected ecchymoses and swelling, will continue therapies, fall precautions, encourage outpatient follow-up with orthopedic surgery. #5. Chronic diastolic CHF: Holding apixaban, will continue patient home metoprolol, Lasix, spironolactone regimen once patient blood pressure is improved however will attempt x1 dose of metoprolol upon admission if vital signs allow given A. fib RVR, not on GENO inhibitor ARB nor on statin therapy. Echocardiogram requested as noted. #6. Hypertension: BP low upon ED presentation, will continue regimen once appropriate, if amenable will administer metoprolol x1 dose given #2, add back regimen once appropriate, as needed IV hydralazine. #7. Hyperlipidemia: Not on statin, defer to outpatient. #8. GERD: We will continue IV PPI as noted above. #9. DVT Prophylaxis: SCDs, defer any chemoprophylaxis given acute presentation as noted in #1. #10. CODE status: Patient does not have healthcare power of civil litigation attorney nor living will in place. Discussed CODE status at length including difference between FULL code, DNR-CCA and DNR-CC status. Following discussions about the differences in these status, requested Full code status; however, they note they would prefer only 1 attempt and if not revived to let her pass naturally. Advanced Care Planning Face to Face Time: 16 minutes. Charges/Coding Visit Charges Inpatient E&M: 79368 Init Hosp L3 Procedures Hospitalists Procedures: 99133 Advncd Care Plan 30 Min
[2021-09-27] MEDS: 0.9% Normal Saline 1,000 ML 999 ML IV (23:45)
[2021-09-28] VITALS (43 sets, daily range): BP systolic 78–122; BP diastolic 47–91; PULSE 82–132; RESP 15–28; TEMP 36.2–36.7; O2SAT 92–100; BMI 36.8
--- NOTE | 2021-09-28 00:52 | ECHOD_ITS ---
Reason For Study: PAF w/RVR Procedure This was a 2D Doppler, Color Flow transthoracic echocardiogram. Exam performed portable in ICU/CCU. Left Ventricle Normal LV size. Left ventricular systolic function is normal. The estimated ejection fraction is 55 %. No regional wall motion abnormalities noted. Right Ventricle Mildly dilated right ventricle. Normal systolic function. Atria The left atrium is severely enlarged. The right atrium is moderately enlarged. Mitral Valve Normal mitral valve. Mild (1+) eccentric mitral valve insufficiency. Tricuspid Valve Normal tricuspid valve. Mild to moderate (1-2+) tricuspid valve insufficiency. Pulmonary artery systolic pressure is 36 mmHg. Aortic Valve Trisinus/trileaflet aortic valve. Mild (1+) eccentric aortic valve insufficiency. Pulmonic Valve Normal pulmonic valve. Great Vessels Normal aortic root. The pulmonary artery is normal size. Normal inferior vena cava. Pericardium/Pleural No pericardial effusion. MMode/2D Measurements & Calculations LVIDd: 3.8 cm IVSd: 1.0 cm Ao root diam: 3.0 cm LVIDs: 2.8 cm LVPWd: 1.1 cm RVDd: 2.9 cm FS: 25.4 % LAV(MOD-bp): 143.6 ml LA A4 area: 35.7 cm2 LA dimension(2D): 4.6 cm LAV(MOD-bp) Indexed: 76.3 ml/m2 LAV(MOD-sp2): 148.5 ml LAV(MOD-sp4): 131.5 ml RA A4 area: 26.6 cm2 Doppler Measurements & Calculations MV E max emani: 139.3 cm/sec Ao V2 max: 168.9 cm/sec AI max emani: 415.5 cm/sec Ao max P.4 mmHg AI max P.1 mmHg AI dec slope: 419.5 cm/sec2 AI P1/2t: 290.1 msec LV V1 max: 92.9 cm/sec MR max emani: 425.7 cm/sec PA V2 max: 116.2 cm/sec LV V1 max P.5 mmHg MR max P.5 mmHg TR max emani: 285.2 cm/sec TR max P.5 mmHg ECHO/Echo Complete Interpretation Summary Normal LV size. Left ventricular systolic function is normal. The estimated ejection fraction is 55 %. Mild (1+) eccentric aortic valve insufficiency. Mild (1+) eccentric mitral valve insufficiency. Pulmonary artery systolic pressure is 36 mmHg. Ordering Physician: Yoanna Davis Referring Physician: Austin Singh Performed By: Berenice Cruz RDCS, RVT
[2021-09-28] MEDS: 0.9% Normal Saline 1,000 ML 100 ML IV (01:38)
[2021-09-28 02:01] LABS: Troponin-I HS 12 pg/mL (3.0-54.0)
[2021-09-28 04:06] LABS: Troponin-I HS 11 pg/mL (3.0-54.0)
[2021-09-28 05:03] LABS: Absolute Lymphocyte Count 0.86 X10^3/uL (0.83-4.51); Absolute Neutrophil Count 12.4 X10^3/uL (2.0-7.7); Basophil# 0.05 X10^3/uL; Basophil% 0.4 % (0-1); Eosinophil# 0.01 X10^3/uL; Eosinophils% 0.1 % (0-5); Hematocrit 27.6 % (37-47); Hemoglobin 9.5 g/dL (12.0-15.0); Lymphocyte # 0.86 X10^3/ul (0.83-4.51); Lymphocyte % 6.1 % (19-41); Mean Corp Hgb Conc 34.4 g/dL (32-36); Mean Corpuscular Hgb 29.8 pg (27.0-32.0); Mean Corpuscular Volume 86.5 fL (81-99); Mean Platelet Vol. 9.4 fl (6.2-12.0); Monocyte# 0.33 X10^3/uL; Monocyte% 2.3 % (0-10); NRBC Flagged by Analyzer 0 % (0-5); Neutrophil # 12.37 X10^3/uL (2.7-7.7); Neutrophil % 87.9 % (47-70); Platelet Count 280 K/mm3 (150-450); RBC Distribution Width CV 17.2 % (11.6-14.6); RBC Distribution Width SD 53.9 fl (35.1-43.9); Red Blood Count 3.19 M/mm3 (4.2-5.4); White Blood Count 14.1 K/mm3 (4.4-11.0)
--- NOTE | 2021-09-28 05:48 | CON.PCM.CC_ITS ---
Assessment & Plan Assessment/Plan (1) Acute blood loss anemia: PLAN: RECOMMENDATIONS: 1. Continue to monitor H&H and transfuse if hemoglobin drops below 7 g/dL. 2. Continue PPI therapy. 3. Await evaluation by gastroenterology. 4. I would consider holding diuretic therapy and continuing beta-jesus. IMPRESSIONS: 1. Blood loss anemia The patient presented to the hospital with evidence of lower GI bleeding in the setting of systemic anticoagulation with Eliquis. The patient has received 2 units of packed red blood cells along with supplemental IV fluid hydration. She remains hemodynamically stable. Her Eliquis has been discontinued. I would plan to hold her diuretics for now. The patient will be continued on her PPI therapy, pending evaluation by gastroenterology. 2. Chronic atrial fibrillation Continue beta-jesus and hold diuretics. 3. Hypertension/hyperlipidemia/GERD Complicates care, management, recovery and prognosis. Continue home medications as indicated. This note was generated with [employer] dictation software. It may contain incorrect words, spelling, and punctuation that were not noted in checking the note before signing. HPI Consult Data Date of Consult: 09/28/21 HPI Narrative Reason for Consultation: Gastrointestinal bleed HPI Narrative: The patient is a 76-year-old female, with a history as outlined below, who presented to the emergency department on September 27 via EMS with bright red blood per rectum. The patient's medical history is significant for heart failure with preserved ejection fraction, atrial fibrillation on Eliquis and chronic anemia. The patient also reported the presence of mild abdominal discomfort and nausea without emesis. On presentation to the emergency department, the patient was noted to be afebrile and hemodynamically stable. She was, nevertheless, tachycardic. Initial laboratory evaluation revealed a white blood cell count of 12,000. Hemoglobin was noted to be 10.3 g/dL. Previously, in December 2019, the patient was last documented to have a hemoglobin of 12.3 g/dL. Platelet count was within normal limits. Chemistry profile was notable for a creatinine of 1.24. Total bili was increased at 1.8. During her emergency department stay, the patient became hypotensive and was fluid resuscitated. The patient to date has been tr ansfused 2 units of packed red blood cells. She has been maintained on supplemental IV fluids along with PPI therapy. [facility] Medical History (HFpEF) heart failure with preserved ejection fraction Acute blood loss anemia Atrial enlargement, bilateral Chronic combined systolic and diastolic CHF (congestive heart failure) Essential (primary) hypertension GI bleed (04/2018) Longstanding persistent atrial fibrillation Non-ischemic cardiomyopathy Nonrheumatic mitral (valve) insufficiency Obesity Home Medications metoprolol tartrate 50 mg tablet 50 mg PO BID 04/14/19 [History Last Taken Unknown] apixaban 2.5 mg tablet 2.5 mg PO BID #60 tab 07/07/20 [Rx Last Taken Unknown] spironolactone 50 mg tablet 50 mg PO QDAY #90 tab 01/19/21 [Rx Last Taken Unk nown] furosemide 40 mg tablet 40 mg PO BID #180 tab 07/10/21 [Rx Last Taken Unknown] allopurinol 200 mg PO DAILY 09/27/21 [History Last Taken Unknown] pantoprazole [Protonix] 40 mg PO DAILY 09/28/21 [History Last Taken Unknown] Allergy/AdvReac Type Severity Reaction Status Date / Time warfarin [From Coumadin] Allergy rash Verified 09/27/21 22:24 Family History Father , age 68 from massive [place] CAD (coronary artery disease) Sudden cardiac Mother CVA (cerebral vascular accident) Surgical History History of total right knee replacement s/p vein surgery Social History Smoking Status: Never smoker second hand exposure: No alcohol intake: never substance use type: does not use caffeine: Yes ROS Constitutional Constitutional: Denies body ache(s), chills, fatigue or fever(s) Eyes Eyes: Denies blurry vision or change in vision ENT HEENT: Denies dizziness, headache(s), hoarseness or loss taste/smell Cardiovascular Cardiovascular: Denies chest pain or dizziness Respiratory/Chest Respiratory/Chest: Denies chest tightness, cough, dyspnea or hemoptysis Gastrointestinal Gastrointestinal: Reports abdominal pain, hematochezia and nausea; Denies vomiting Genitourinary Genitourinary: Denies difficulty urinating Musculoskeletal Musculoskeletal: Denies arthralgias, back pain or joint pain Integumentary Integumentary: Denies lesions, rash or skin ulcer Neurologic Neurologic: Denies abnormal gait or abnormal speech Psychiatric Psychiatric: Denies anxiety or depression Endocrine Endocrinology: Denies fatigue Hematologic/Lymphatic Hematologic/Lymphatic: Denies easy bleeding or easy bruising Physical Exam Const alert and no apparent distress Constitutional Narrative: is present at the bedside. General Appearance: cooperative HEENT normocephalic and head/scalp atraumatic Eyes PERRL and EOMs intact bilaterally Neck supple General: trachea midline Chest inspection of chest normal Resp Auscultation: Negative for rales, rhonchi or wheezes Cardio S1 normal heart sound and S2 normal heart sound Rhythm: abnormal rhythm GI normal to inspection, nondistended, normoactive bowel sounds Extremity no clubbing, cyanosis or edema Skin no rashes or lesions noted Neuro CN's II-XII intact bilaterally, moves all extremities and no focal motor deficits Psych cooperative and affect normal Lab / Micro Data Result Diagrams: 09/28/21 04:55 09/28/21 04:55 Labs: Laboratory Results - last 24 hr 09/27/21 22:20: WBC 12.2 H, RBC 3.53 L, Hgb 10.3 L, Hct 31.8 L, MCV 90.1, MCH 29.2, MCHC 32.4, RDW Std Deviation 53.2 H, RDW Coeff of Bob 16.2 H, Plt Count 355, MPV 9.7 09/27/21 22:20: PT 15.3 H, INR 1.3, APTT 34.1 09/27/21 22:20: Sodium 133 L, Potassium 3.6, Chloride 101, Carbon Dioxide 25.0, Anion Gap 7, BUN 27 H, Creatinine 1.24 H, Estim Creat Clear Calc 30.04, Est GFR (MDRD) Af Amer 54 L, Est GFR (MDRD) Non-Af 45 L, BUN/Creatinine Ratio 21.8 H, Glucose 150 H, Calcium 9.1 09/27/21 22:20: Blood Type A NEGATIVE, Antibody Screen NEGATIVE 09/27/21 22:20: Magnesium 1.8 09/27/21 22:20: Crossmatch See Detail 09/28/21 01:30: Troponin I High Sens 12 09/28/21 03:34: Troponin I High Sens 11 04/07/22 04:55: WBC 14.1 H, RBC 3.19 L, Hgb 9.5 L, Hct 27.6 L, MCV 86.5, MCH 29.8, MCHC 34.4 D, RDW Std Deviation 53.9 H, RDW Coeff of Bob 17.2 H, Plt Count 280, MPV 9.4, Immature Gran % (Auto) 3.200 H, Neut % (Auto) 87.9 H, Lymph % (Auto) 6.1 L, [place] % (Auto) 2.3, Eos % (Auto) 0.1, Baso % (Auto) 0.4, Absolute Neuts (auto) 12.4 H, Absolute Lymphs (auto) 0.86, Nucleated RBC % 0 Rhythm Strip Rhythm Strip: A-fib Rate: 115 Ectopy: None Charges/Coding Visit Charges Inpatient E&M: 56292 Init Hosp L3
[2021-09-28 05:52] LABS: ALB/GLOB Ratio 0.6 RATIO (0.9-2.4); AST(SGOT) 26 U/L (15-37); Alanine Aminotransfer ALT/SGPT 14 U/L (13-56); Alkaline Phosphatase 135 U/L (45-117); Anion Gap 8 (5-15); BUN 30 mg/dL (7-18); BUN/Creat Ratio 27.8 RATIO (10-20); Calcium,Total 7.6 mg/dL (8.5-10.1); Chloride 106 mmol/L (98-107); Creatinine, Serum 1.08 mg/dL (0.55-1.02); EST Glomerular Filtration Rate 53 mL/min (>60); Est Glom Filt Rate - Afr Amer 64 mL/min (>60); Estimated Creatinine Clearance 34.49 ml/min; Globulin 3.1 g/dL (2.2-4.2); Glucose 133 mg/dL (74-106); Potassium 4.1 mmol/L (3.5-5.1); Protein, Total 5.1 g/dL (6.4-8.2); Sodium Level 137 mmol/L (136-145); Thyroid Stim Hormone (TSH) 2.02 uIU/mL (0.358-3.74)
--- NOTE | 2021-09-28 05:55 | EKG12_ITS ---
Test Reason : AM EKG Blood Pressure : / mmHG Vent. Rate : 108 BPM Atrial Rate : 340 BPM P-R Int : 000 ms QRS Dur : 074 ms QT Int : 356 ms P-R-T Axes : 000 020 099 degrees QTc Int : 477 ms Atrial fibrillation Nonspecific T wave abnormality Abnormal ECG When compared with ECG of 27-SEP-2021 23:05, MANUAL COMPARISON REQUIRED, DATA IS UNCONFIRMED Confirmed by EZEQUIEL PEREZ, TAMAR ([id number]), editor at large STEPHANY ACUNA ([id number]) on 10/06/2021 1:32:37 PM Referred By: HUMBERTO Confirmed By:RANJEET NIEVES MD
[2021-09-28 07:43] LABS: Troponin-I HS 12 pg/mL (3.0-54.0)
[2021-09-28 07:51] LABS: Hemoglobin A1c 6.1 % (3.8-5.6)
[2021-09-28] MEDS: Furosemide 40 MG Tablet PO (09:55)
[2021-09-28] MEDS: Metoprolol Tartrate 50 MG Tablet PO ×2 (09:55→22:35)
[2021-09-28] MEDS: Spironolactone 50 MG Tablet PO (09:56)
--- NOTE | 2021-09-28 10:09 | PN.HOSP_ITS ---
Subjective Subjective Patient seen and summoned. was by her bedside. She had no acute complaints. She denied any lightheadedness, dizziness, nausea or vomiting. Review of symptoms otherwise negative. Heart rate remains poorly controlled though she denies any palpitations. She did not have any more rectal bleeding overnight. Objective Data Objective Data Vital Signs: Vital Signs Temp Pulse Resp BP Pulse Ox 97.1 F L 132 H 22 H 114/79 96 09/28/21 03:36 09/28/21 09:55 09/28/21 07:00 09/28/21 09:55 09/28/21 07:00 Oxygen Delivery Method Room Air Weight: 195 lb 5.273 oz Body Mass Index (BMI) 36.8 Intake & Output: Intake and Output for Last 24 Hours 09/26/21 09/27/21 09/28/21 23:59 23:59 23:59 Intake Total 1909 Output Total 0 / 0 Balance 1909 Lab / Micro Data Result Diagrams: 09/28/21 04:55 09/28/21 04:55 Labs: Laboratory Results - last 24 hr 09/27/21 22:20: WBC 12.2 H, RBC 3.53 L, Hgb 10.3 L, Hct 31.8 L, MCV 90.1, MCH 29.2, MCHC 32.4, RDW Std Deviation 53.2 H, RDW Coeff of Bob 16.2 H, Plt Count 355, MPV 9.7 09/27/21 22:20: PT 15.3 H, INR 1.3, APTT 34.1 09/27/21 22:20: Sodium 133 L, Potassium 3.6, Chloride 101, Carbon Dioxide 25.0, Anion Gap 7, BUN 27 H, Creatinine 1.24 H, Estim Creat Clear Calc 30.04, Est GFR (MDRD) Af Amer 54 L, Est GFR (MDRD) Non-Af 45 L, BUN/Creatinine Ratio 21.8 H, Glucose 150 H, Calcium 9.1 09/27/21 22:20: Blood Type A NEGATIVE, Antibody Screen NEGATIVE 09/27/21 22:20: Magnesium 1.8 09/27/21 22:20: Crossmatch See Detail 09/28/21 01:30: Troponin I High Sens 12 09/28/21 03:34: Troponin I High Sens 11 09/28/21 04:55: WBC 14.1 H, RBC 3.19 L, Hgb 9.5 L, Hct 27.6 L, MCV 86.5, MCH 2 9.8, MCHC 34.4 D, RDW Std Deviation 53.9 H, RDW Coeff of Bob 17.2 H, Plt Count 280, MPV 9.4, Immature Gran % (Auto) 3.200 H, Neut % (Auto) 87.9 H, Lymph % (Auto) 6.1 L, [place] % (Auto) 2.3, Eos % (Auto) 0.1, Baso % (Auto) 0.4, Absolute Neuts (auto) 12.4 H, Absolute Lymphs (auto) 0.86, Nucleated RBC % 0 09/28/21 04:55: Sodium 137, Potassium 4.1, Chloride 106, Carbon Dioxide 23.0, Anion Gap 8, BUN 30 H, Creatinine 1.08 H, Estim Creat Clear Calc 34.49, Est GFR (MDRD) Af Amer 64, Est GFR (MDRD) Non-Af 53 L, BUN/Creatinine Ratio 27.8 H, Glucose 133 H, Calcium 7.6 L, Total Bilirubin 1.80 H, AST 26, ALT 14, Alkaline Phosphatase 135 H, Total Protein 5.1 L, Albumin 2.0 L, Globulin 3.1, Albumin/Globulin Ratio 0.6 L, TSH 2.02 09/28/21 04:55: Hemoglobin A1c 6.1 H 09/28/21 07:16: Troponin I High Sens 12 Rhythm Strip Rhythm Strip: A-fib Rate: 115 Ectopy: None Physical Exam Const alert, oriented x3 and no apparent distress Exam Limitations: no limitations HEENT head/scalp atraumatic Head and Scalp: normocephalic Mouth: dry mucous membranes Eyes PERRL, EOMs intact bilaterally and conjunctivae normal Neck no lymphadenopathy Resp normal respiratory effort, no retractions, no use of accessory muscles and clear to auscultation bilaterally Cardio regular rate, regular rhythm, S1 normal heart sound, S2 normal heart sound and no murmurs GI normal to inspection, nondistended, normoactive bowel sounds, soft to palpation, non-tender and non-distended Extremity normal to inspection, full ROM and no clubbing, cyanosis or edema Peripheral Pulses: Yes pulses 2+ throughout Skin no rashes or lesions noted Neuro oriented x3, CN's II-XII intact bilaterally and moves all extremities Sensorium / Orientation: awake and alert Psych affect normal Assessment & Plan Assessment/Plan (1) Acute blood loss anemia: (2) Acute lower gastrointestinal bleeding: (3) Atrial fibrillation with rapid ventricular response: PLAN: #Acute on chronic anemia due to acute lower GI bleed * Status post 2 units of packed red blood cells. Hemoglobin today is 9.5. * Eliquis on hold. Currently NPO. * GI on board; await recs. * Continue gentle hydration with IV fluids. * On IV pantoprazole 40 mg twice daily. * #Acute GI bleed likely due to Eliquis * As above. * #A. fib with RVR * Heart rate remained poorly controlled. Was fluctuating between 110s to 130s during my review today. * 2D echo ordered. * Eliquis currently on hold. on metoprolol 50mg bid * if herat rate remains poorly controlled even on metoprolol, will consider starting cardizem drip * #Chronic heart failure with preserved ejection fraction: * On Lasix and spironolactone which on hold due to blood pressure being low. * 2D echo ordered and is pending. * * #Hyperlipidemia: Not on statin. Follow-up with PCP on outpatient basis #GERD: Currently on IV PPI #Osteoarthritis s/p right total knee replacement * Recently had surgery. Has sherly in place. PT OT on board. Fall precautions. * Follow-up with orthostatics on outpatient basis. * CODE STATUS: Full code Charges/Coding Visit Charges Inpatient E&M: 61493 Subs Hosp L3
--- NOTE | 2021-09-28 11:40 | CASEMGMT ---
RENETTA BROOKS Face to Face with patient for initial transition planning/care coordination assessment. RENETTA BROOKS introduced self and role at [facility]. Patient lying in bed, alert and oriented, at bedside. Patient willing to participate in assessment and is able to answer all questions appropriately. Care providers, pharmacy, and demographics verified. Patient wishes to discharge home with resumption of her home therapy through [facility]. Patient states she has no further needs or concerns at this time. CM to follow for discharge planning needs that may arise. PCP: Samantha Specialists: fadi William; Rosa material assistant Preferred Pharmacy: [facility]; [facility] retail at discharge Insurance: [email or web address] Prescription Benefit: none Living Will/HPOA: none LNOK: , son Living Arrangements: Patient lives with in a 2 story home with bed and bath on first floor. 1 step and post to enter the home. Patient states she was independent for self care at home. Transportation: Driving service DME/HHC: Patient states she has shower chair, raised toilet, cane, walker, and grab bars at home. Patient states she is receiving home therapy but could not recall company. RENETTA BROOKS called [facility] to verify therapy company. Patient was setup with [facility] [phone]. RENETTA BROOKS called and updated [facility] regarding hospitalization, CM will updated when patient discharges. Disposition Plan: Patient to discharge home with home therapy, family support and follow-up plans in place. Elizabeth SANCHEZ, RN, CM
--- NOTE | 2021-09-28 18:06 | EX.PCM.CON.G ---
HPI Consult Data Date of Consult: 09/28/21 HPI Narrative HPI Narrative: HEDY BANSAL, is a 76 F who presents multiple episodes of lower GI bleeding. She has a past medical history of peptic ulcer disease secondary to NSAIDs back in 2018 as the etiology of GI bleed. She underwent repeat endoscopy 6 months later and there was resolution of the ulcer as per the patient. She also has a past medical history of atrial fibrillation and takes Eliquis therapy. She presented to the ED after having worsening abdominal pain and cramping followed by diarrhea and bloody stools. Previously she was constipated and was taking stool softeners. She was constipated after having a knee surgery. Her baseline hemoglobin is 12.5. When she came into the ED it was 10.6. This morning her hemoglobin is 9.5. She has had a couple more episodes of lower GI bleeding. She admitted to the ICU due to hypotension and rapid atrial fibrillation. She underwent an echocardiogram today and it showed EF of 55% with mild diastolic dysfunction. There was no sign of blood clot on her TTE study today. Mild (1+) eccentric aortic valve insufficiency. Mild (1+) eccentric mitral valve insufficiency. Pulmonary artery systolic pressure is 36 mmHg. At this time she is stable without any chest pain or shortness of breath and satting 100% on room air. [facility] Medical History (HFpEF) heart failure with preserved ejection fraction Acute blood loss anemia Atrial enlargement, bilateral Chronic combined systolic and diastolic CHF (congestive heart failure) Essential (primary) hypertension GI bleed (04/2018) Longstanding persistent atrial fibrillation Non-ischemic cardiomyopathy Nonrheumatic mitral (valve) insufficiency Obesity Home Medications metoprolol tartrate 50 mg tablet 50 mg PO BID 04/14/19 [History Last Taken Unknown] apixaban 2.5 mg tablet 2.5 mg PO BID #60 tab 07/07/20 [Rx Last Taken Unknown] spironolactone 50 mg tablet 50 mg PO QDAY #90 tab 01/19/21 [Rx Last Taken Unknown] furosemide 40 mg tablet 40 mg PO BID #180 tab 07/10/21 [Rx Last Taken Unknown] allopurinol 200 mg PO DAILY 09/27/21 [History Last Taken Unknown] pantoprazole [Protonix] 40 mg PO DAILY 09/28/21 [History Last Taken Unknown] Allergy/AdvReac Type Severity Reaction Status Date / Time warfarin [From Coumadin] Allergy rash Verified 09/27/21 22:24 Family History Father , age 68 from massive [place] CAD (coronary artery disease) Sudden cardiac Mother CVA (cerebral vascular accident) Surgical History History of total right knee replacement s/p vein surgery Social History Smoking Status: Never smoker second hand exposure: No alcohol intake: never substance use type: does not use caffeine: Yes ROS Gastrointestinal Gastrointestinal: Reports cramping and hematochezia Physical Exam Const alert General Appearance: cooperative Orientation / Consciousness: oriented to person HEENT hearing grossly normal bilaterally Head and Scalp: normal to inspection Face and Sinus: face symmetric Nose: external nose normal Mouth: oral and palatal mucosa normal Eyes conjunctivae normal General Eye: normal appearance of both eyes Neck full ROM General: normal visual inspection Lymph Lymphatic: no lymphadenopathy noted Chest inspection of chest normal and palpation of chest normal Chest: symmetrical chest wall rise Resp normal respiratory effort Effort and Inspection: able to speak in complete sentences Cardio regular rate GI non-distended Percussion: normal to percussion Rectal Exam: deferred Neuro Speech: speech normal Gait (Neuro): normal gait Lab / Micro Data Result Diagrams: 09/28/21 04:55 09/28/21 04:55 Labs: Laboratory Results - last 24 hr 09/27/21 22:20: WBC 12.2 H, RBC 3.53 L, Hgb 10.3 L, Hct 31.8 L, MCV 90.1, MCH 29.2, MCHC 32.4, RDW Std Deviation 53.2 H, RDW Coeff of Bob 16.2 H, Plt Count 355, MPV 9.7 09/27/21 22:20: PT 15.3 H, INR 1.3, APTT 34.1 09/27/21 22:20: Sodium 133 L, Potassium 3.6, Chloride 101, Carbon Dioxide 25.0, Anion Gap 7, BUN 27 H, Creatinine 1.24 H, Estim Creat Clear Calc 30.04, Est GFR (MDRD) Af Amer 54 L, Est GFR (MDRD) Non-Af 45 L, BUN/Creatinine Ratio 21.8 H, Glucose 150 H, Calcium 9.1 09/27/21 22:20: Blood Type A NEGATIVE, Antibody Screen NEGATIVE 09/27/21 22:20: Magnesium 1.8 09/27/21 22:20: Crossmatch See Detail 09/28/21 01:30: Troponin I High Sens 12 09/28/21 03:34: Troponin I High Sens 11 09/28/21 04:55: WBC 14.1 H, RBC 3.19 L, Hgb 9.5 L, Hct 27.6 L, MCV 86.5, MCH 29.8, MCHC 34.4 D, RDW Std Deviation 53.9 H, RDW Coeff of Bob 17.2 H, Plt Count 280, MPV 9.4, Immature Gran % (Auto) 3.200 H, Neut % (Auto) 87.9 H, Lymph % (Auto) 6.1 L, [place] % (Auto) 2.3, Eos % (Auto) 0.1, Baso % (Auto) 0.4, Absolute Neuts (auto) 12.4 H, Absolute Lymphs (auto) 0.86, Nucleated RBC % 0 09/28/21 04:55: Sodium 137, Potassium 4.1, Chloride 106, Carbon Dioxide 23.0, Anion Gap 8, BUN 30 H, Creatinine 1.08 H, Estim Creat Clear Calc 34.49, Est GFR (MDRD) Af Amer 64, Est GFR (MDRD) Non-Af 53 L, BUN/Creatinine Ratio 27.8 H, Glucose 133 H, Calcium 7.6 L, Total Bilirubin 1.80 H, AST 26, ALT 14, Alkaline Phosphatase 135 H, Total Protein 5.1 L, Albumin 2.0 L, Globulin 3.1, Albumin/Globulin Ratio 0.6 L, TSH 2.02 09/28/21 04:55: Hemoglobin A1c 6.1 H 09/28/21 07:16: Troponin I High Sens 12 Rhythm Strip Rhythm Strip: A-fib Rate: 115 Ectopy: None Radiology Impression Echocardiogram 09/28/21 00:52 Interpretation Summary Normal LV size. Left ventricular systolic function is normal. The estimated ejection fraction is 55 %. Mild (1+) eccentric aortic valve insufficiency. Mild (1+) eccentric mitral valve insufficiency. Pulmonary artery systolic pressure is 36 mmHg. Ordering Physician: Yoanna Davis Referring Physician: Austin Singh Performed By: Berenice Cruz, FELIXCS, RVT Assessment & Plan Assessment/Plan (1) Acute blood loss anemia: PLAN: The differential diagnosis for her lower GI bleed is upper GI bleed with rapid transit, diverticular did bleed, ischemic colitis, neoplasm because she is never had a colonoscopy, AVM of the upper GI tract or lower GI tract or stercoral ulcer but she was constipated previously prior to her developing diarrhea and lower GI bleeding. She should undergo an upper and lower endoscopy. She was explained alternatives, risk, benefits including not withstanding bleeding, infection, sepsis, perforation, need for additional . She will have an ASA 3. Charges/Coding Visit Charges Inpatient E&M: 61956 Init Hosp L2
[2021-09-28] MEDS: Electrolyte Solution/Peg's 4000 ML PO (20:21)
[2021-09-28] MEDS: 0.9% Normal Saline 1,000 ML 15 ML IV (20:26)
[2021-09-28] MEDS: Bisacodyl 5 MG Tablet 20 MG PO (20:29)
[2021-09-28] MEDS: Acetaminophen 325 MG Tablet 650 MG PO (20:32)
[2021-09-28] MEDS: Ondansetron 4 MG/2 ML Vial IV (23:29)
[2021-09-29] VITALS (30 sets, daily range): BP systolic 81–120; BP diastolic 48–99; PULSE 75–107; RESP 16–22; TEMP 36–36.7; O2SAT 95–100
[2021-09-29 04:33] LABS: Absolute Lymphocyte Count 1.23 X10^3/uL (0.83-4.51); Absolute Neutrophil Count 8.8 X10^3/uL (2.0-7.7); Basophil# 0.04 X10^3/uL; Basophil% 0.4 % (0-1); Eosinophil# 0.11 X10^3/uL; Hematocrit 23.8 % (37-47); Lymphocyte # 1.23 X10^3/ul (0.83-4.51); Mean Corp Hgb Conc 33.6 g/dL (32-36); Mean Corpuscular Hgb 29.6 pg (27.0-32.0); Mean Corpuscular Volume 88.1 fL (81-99); Mean Platelet Vol. 9.1 fl (6.2-12.0); Monocyte# 0.66 X10^3/uL; Monocyte% 5.9 % (0-10); NRBC Flagged by Analyzer 0.7 % (0-5); Neutrophil % 78.7 % (47-70); Platelet Count 271 K/mm3 (150-450); RBC Distribution Width CV 17.5 % (11.6-14.6); RBC Distribution Width SD 54.1 fl (35.1-43.9); White Blood Count 11.2 K/mm3 (4.4-11.0)
[2021-09-29 04:53] LABS: Anion Gap 7 (5-15); BUN 31 mg/dL (7-18); BUN/Creat Ratio 27.9 RATIO (10-20); Calcium,Total 8.2 mg/dL (8.5-10.1); Chloride 107 mmol/L (98-107); Creatinine, Serum 1.11 mg/dL (0.55-1.02); EST Glomerular Filtration Rate 51 mL/min (>60); Est Glom Filt Rate - Afr Amer 62 mL/min (>60); Estimated Creatinine Clearance 33.55 ml/min; Glucose 113 mg/dL (74-106); Potassium 3.4 mmol/L (3.5-5.1); Sodium Level 140 mmol/L (136-145)
[2021-09-29] MEDS: proCHLORPERazine 10 MG/2 ML Vial 5 MG IV (05:06)
--- NOTE | 2021-09-29 06:10 | PCM.PN.INT ---
Assessment & Plan Assessment/Plan (1) Acute blood loss anemia: PLAN: RECOMMENDATIONS: 1. Continue to monitor H&H and transfuse if hemoglobin drops below 7 g/dL. 2. Continue PPI therapy. 3. Gastroenterology following. Plan for upper and lower endoscopy today. 4. Continue to hold diuretics for now. Continue beta-jesus as ordered. IMPRESSIONS: 1. Blood loss anemia The patient presented to the hospital with evidence of lower GI bleeding in the setting of systemic anticoagulation with Eliquis. The patient has received 2 units of packed red blood cells along with supplemental IV fluid hydration. She remains hemodynamically stable. Her Eliquis has been discontinued. I would plan to hold her diuretics for now. The patient will be continued on her PPI therapy, pending endoscopic evaluation by gastroenterology. Continue to monitor H&H and transfuse if hemoglobin drops below 7 g/dL. 2. Chronic atrial fibrillation Continue beta-jesus and hold diuretics. 3. Hypertension/hyperlipidemia/GERD Complicates care, management, recovery and prognosis. Continue home medications as indicated. This note was generated with [employer] dictation software. It may contain incorrect words, spelling, and punctuation that were not noted in checking the note before signing. Subjective Subjective The patient was seen and examined at the bedside this morning. Events from the last 24 hours have been reviewed. The patient is currently afebrile, hemodynamically stable and maintaining appropriate oxygen saturations on room air. Hemoglobin has dropped from 9.5 g/dL to 8.0 g/dL this morning. There are tentative plans for both upper and lower endoscopy today. Objective Data Objective Data The patient's most recent lab work, culture data and imaging studies have all been personally reviewed. Surface echocardiogram demonstrated normal LV size and function with an ejection fraction of 55%. Pulmonary artery systolic pressure was estimated to be 36 mmHg. Vital Signs: Vital Signs Temp Pulse Resp BP Pulse Ox 97.6 F L 88 18 104/59 L 97 09/29/21 00:00 09/29/21 06:00 09/29/21 06:00 09/29/21 06:00 09/29/21 06:00 Oxygen Delivery Method Room Air Weight: 89.1 kg Body Mass Index (BMI) 36.8 Intake & Output: Intake and Output for Last 24 Hours 09/27/21 09/28/21 09/29/21 23:59 23:59 23:59 Intake Total 3850 / 3850 Output Total 800 / 800 Balance 3050 / 3050 Lab / Micro Data Attestation: I reviewed the patient's lab results. Result Diagrams: 09/29/21 04:25 09/29/21 04:25 Labs: Laboratory Results - last 24 hr 09/28/21 04:55: Hemoglobin A1c 6.1 H 09/28/21 07:16: Troponin I High Sens 12 09/29/21 04:25: WBC 11.2 H, RBC 2.70 L, Hgb 8.0 L, Hct 23.8 L, MCV 88.1, MCH 29.6, MCHC 33.6, RDW Std Deviation 54.1 H, RDW Coeff of Bob 17.5 H, Plt Count 271, MPV 9.1, Immature Gran % (Auto) 3.000 H, Neut % (Auto) 78.7 H, Lymph % (Auto) 11.0 L, [place] % (Auto) 5.9, Eos % (Auto) 1.0, Baso % (Auto) 0.4, Absolute Neuts (auto) 8.8 H, Absolute Lymphs (auto) 1.23, Nucleated RBC % 0.7 09/29/21 04:25: Sodium 140, Potassium 3.4 L, Chloride 107, Carbon Dioxide 26.0, Anion Gap 7, BUN 31 H, Creatinine 1.11 H, Estim Creat Clear Calc 33.55, Est GFR (MDRD) Af Amer 62, Est GFR (MDRD) Non-Af 51 L, BUN/Creatinine Ratio 27.9 H, Glucose 113 H, Calcium 8.2 L Radiography Diagnostic Testing: Radiology Impression Echocardiogram 09/28/21 00:52 Interpretation Summary Normal LV size. Left ventricular systolic function is normal. The estimated ejection fraction is 55 %. Mild (1+) eccentric aortic valve insufficiency. Mild (1+) eccentric mitral valve insufficiency. Pulmonary artery systolic pressure is 36 mmHg. Ordering Physician: Yoanna Davis Referring Physician: Austin Singh Performed By: Berenice Cruz, MAGDALENA, RVT Rhythm Strip Rhythm Strip: A-fib Rate: 115 Ectopy: None Physical Exam Const alert and no apparent distress General Appearance: cooperative HEENT normocephalic and head/scalp atraumatic Eyes PERRL and EOMs intact bilaterally Neck supple General: trachea midline Chest inspection of chest normal Resp Auscultation: Negative for rales, rhonchi or wheezes Cardio S1 normal heart sound and S2 normal heart sound Rhythm: abnormal rhythm GI normal to inspection, nondistended, normoactive bowel sounds Extremity no clubbing, cyanosis or edema Skin no rashes or lesions noted Neuro CN's II-XII intact bilaterally, moves all extremities and no focal motor deficits Psych cooperative and affect normal Charges/Coding Visit Charges Inpatient E&M: 91684 Subs Hosp L2
--- NOTE | 2021-09-29 09:49 | PN.HOSP_ITS ---
Subjective Subjective Patient seen and examined. SHe had no acute complaints today. was by her bedside. She is due for EGD and colonoscopy today. Objective Data Objective Data Vital Signs: Vital Signs Temp Pulse Resp BP Pulse Ox 97.6 F L 96 22 H 109/75 97 09/29/21 00:00 09/29/21 09:00 09/29/21 09:00 09/29/21 09:00 09/29/21 09:00 Oxygen Delivery Method Room Air Weight: 196 lb 6.91 oz Body Mass Index (BMI) 36.8 Intake & Output: Intake and Output for Last 24 Hours 09/27/21 09/28/21 09/29/21 23:59 23:59 23:59 Intake Total 3850 / 3850 1000 / 1000 Output Total 800 / 800 300 / 300 Balance 3050 / 3050 700 / 700 Lab / Micro Data Result Diagrams: 09/29/21 04:25 09/29/21 04:25 Labs: Laboratory Results - last 24 hr 09/29/21 04:25: WBC 11.2 H, RBC 2.70 L, Hgb 8.0 L, Hct 23.8 L, MCV 88.1, MCH 29.6, MCHC 33.6, RDW Std Deviation 54.1 H, RDW Coeff of Bob 17.5 H, Plt Count 271, MPV 9.1, Immature Gran % (Auto) 3.000 H, Neut % (Auto) 78.7 H, Lymph % (Auto) 11.0 L, [place] % (Auto) 5.9, Eos % (Auto) 1.0, Baso % (Auto) 0.4, Absolute Neuts (auto) 8.8 H, Absolute Lymphs (auto) 1.23, Nucleated RBC % 0.7 09/29/21 04:25: Sodium 140, Potassium 3.4 L, Chloride 107, Carbon Dioxide 26.0, Anion Gap 7, BUN 31 H, Creatinine 1.11 H, Estim Creat Clear Calc 33.55, Est GFR (MDRD) Af Amer 62, Est GFR (MDRD) Non-Af 51 L, BUN/Creatinine Ratio 27.9 H, Glucose 113 H, Calcium 8.2 L Radiography Diagnostic Testing: Radiology Impression Echocardiogram 09/28/21 00:52 Interpretation Summary Normal LV size. Left ventricular systolic function is normal. The estimated ejection fraction is 55 %. Mild (1+) eccentric aortic valve insufficiency. Mild (1+) eccentric mitral valve insufficiency. Pulmonary artery systolic pressure is 36 mmHg. Ordering Physician: Yoanna Davis Referring Physician: Austin Singh Performed By: Berenice Cruz, MAGDALENA, RVT Rhythm Strip Rhythm Strip: A-fib Rate: 115 Ectopy: None Physical Exam Const alert, oriented x3 and no apparent distress Exam Limitations: no limitations HEENT head/scalp atraumatic Head and Scalp: normocephalic Eyes PERRL, EOMs intact bilaterally and conjunctivae normal Neck no lymphadenopathy Resp normal respiratory effort, no retractions, no use of accessory muscles and clear to auscultation bilaterally Cardio regular rate, regular rhythm, S1 normal heart sound, S2 normal heart sound and no murmurs GI normal to inspection, nondistended, normoactive bowel sounds, soft to palpation, non-tender and non-distended Extremity normal to inspection, full ROM and no clubbing, cyanosis or edema Peripheral Pulses: Yes pulses 2+ throughout Skin no rashes or lesions noted Neuro oriented x3, CN's II-XII intact bilaterally and moves all extremities Sensorium / Orientation: awake and alert Psych affect normal Assessment & Plan Assessment/Plan (1) Acute blood loss anemia: (2) Acute lower gastrointestinal bleeding: (3) Atrial fibrillation with rapid ventricular response: PLAN: #Acute on chronic anemia due to acute lower GI bleed * Status post 2 units of packed red blood cells. Hemoglobin today is 8, down from 9.5 yeserday * Eliquis on hold. Currently NPO. * GI on board; for EGD and colonoscopy today * Continue gentle hydration with IV fluids. * On IV pantoprazole 40 mg twice daily. * #Acute GI bleed likely due to Eliquis * As above. * #A. fib with RVR * Heart rate has improved. * 2D echo showed EF of 55%, with no regional wall motion abnormalities seen, mildly dilated RV and normal systolic function * Eliquis currently on hold. on metoprolol 50mg bid * #Chronic heart failure with preserved ejection fraction: * On Lasix and spironolactone which on hold due to blood pressure being low. * 2D echo as above. * * #Hyperlipidemia: Not on statin. Follow-up with PCP on outpatient basis #GERD: Currently on IV PPI #Osteoarthritis s/p right total knee replacement * Recently had surgery. Has sherly in place. PT OT on board. Fall precautions. * Follow-up with orthostatics on outpatient basis. * CODE STATUS: Full code Charges/Coding Visit Charges Inpatient E&M: 59606 Subs Hosp L2
--- NOTE | 2021-09-29 09:58 | CASEMGMT ---
RENETTA BROOKS NOTE: RENETTA BROOKS met w/pt in her room. Therapy just getting pt back to bed. Pt states plans to return home w/resumption of home therapy through [facility]. Her next home PT appt is scheduled for next Sat. Pt to contact [facility] when she returns home. RENETTA BROOKS placed call to Trang @ [facility] therapy. She was notified of above. Barrett SANCHEZ RN, CM
[2021-09-29] MEDS: Potassium Chloride IVPB 40 MEQ 100 MEQ IV BOLUS ×4 (10:05→16:48)
[2021-09-29] MEDS: Metoprolol Tartrate 50 MG Tablet PO ×2 (10:06→21:53)
--- NOTE | 2021-09-29 10:50 | NURSING ---
Patient transported to for EGD and Colonoscopy
--- NOTE | 2021-09-29 12:00 | EGD_PTH ---
PATIENT: HEDY BANSAL LOC: [facility]3 U#:[id number] AGE/SX: 76/F ROOM: [facility] RE09/27/[address]: Dr. Margot Nix MD : 1945 BED: 1 DIS: 09/30/2021 SPEC #: [id number] RECD: 09/29/21 13:26 STATUS: JAMES RERadha #: [id number] NATHANIEL: 09/29/21 12:[address]: Keny Elena DEPT: SURGICAL PATHOLOGY RECD BY: Ruby Olivas ENTERED: 10/02/21 09:34 SP TYPE: EGD BIOPSY OTHR DR: MD Dr. Austin Avalos, DO Dr. Yosef Strauss, DO Dr. Margot Nix MD Tissues: A - Ascending colon B - Sigmoid colon biopsy Procedures: Surgery Specimen Level IV Comments: @ Ordering doctor for SUIV edited from to @ by RGOOD at 10/02/21 4536 @ Submitting doctor edited from to @ by RGOOD at 10/02/21 3604 No specimen in B, office notified. HEADER OPERATION: Colonoscopy, EGD ([facility] [place] PRE-OP DIAGNOSIS: Acute blood loss anemia, acute lower GI bleeding TISSUE SUBMITTED: A ? Ascending colon polyp biopsy, B ? Sigmoid colon polyp biopsy MICROSCOPIC DIAGNOSIS A. Ascending colon polyp, biopsy: Tubular adenoma. B. Sigmoid colon polyp, biopsy: No diagnosis. See comment. AM:braden 10/03/2021 COMMENT B. No specimen was identified in the container. Dr. Elena?s office is notified. MICROSCOPIC DESCRIPTION Slides are reviewed. GROSS DESCRIPTION A - Received in fixative is one container labeled with the patient's name and designated ascending colon polyp biopsy. The specimen consists of one irregular fragment of light hunt soft tissue that measures 0.5 x 0.3 x 0.1 cm. The specimen is totally submitted in one cassette. B - Received in fixative is one container labeled with the patient's name and designated sigmoid colon polyp biopsy. No specimen in container. / AM:braden 10/02/2021 TC:5 CPT: 55885
--- NOTE | 2021-09-29 12:33 | NURSING ---
Patient transported to in preparation for EGD and Colonoscopy.
--- NOTE | 2021-09-29 13:28 | OP.EGD_ITS ---
Patient Name: Bhavna Wong Procedure Date: 09/29/2021 12:25 PM Date of : 1945 Age: 76 Procedure: Upper GI endoscopy Indications: Active gastrointestinal bleeding Providers: Keny Elena DO Medicines: See the Anesthesia note for documentation of the administered medications Patient Profile: This is a 76 year old female. Refer to note in patient chart for documentation of history and physical. Patient has symptoms of acute epigastric abdominal pain. Complications: No immediate complications. Procedure: Pre-Anesthesia Assessment: - Prior to the procedure, a History and Physical was performed, and patient medications and allergies were reviewed. The patient is competent. The risks and benefits of the procedure and the sedation options and risks were discussed with the patient. All questions were answered and informed consent was obtained. Patient identification and proposed procedure were verified by the physician in the pre-procedure area. Mental Status Examination: alert and oriented. Airway Examination: normal oropharyngeal airway and neck mobility. Respiratory Examination: clear to auscultation. CV Examination: normal. Prophylactic Antibiotics: The patient does not require prophylactic antibiotics. Prior Anticoagulants: The patient has taken no previous anticoagulant or antiplatelet agents. ASA Grade Assessment: II - A patient with mild systemic disease. After reviewing the risks and benefits, the patient was deemed in satisfactory condition to undergo the procedure. The anesthesia plan was to use moderate sedation / analgesia (conscious sedation). Immediately prior to administration of medications, the patient was re-assessed for adequacy to receive sedatives. The heart rate, respiratory rate, oxygen saturations, blood pressure, adequacy of pulmonary ventilation, and response to care were monitored throughout the procedure. The physical status of the patient was re-assessed after the procedure. After obtaining informed consent, the endoscope was passed under direct vision. Throughout the procedure, the patient's blood pressure, pulse, and oxygen saturations were monitored continuously. The colonoscope was introduced through the mouth, and advanced to the second part of duodenum. The upper GI endoscopy was accomplished without difficulty. The patient tolerated the procedure well. Moderate Sedation: Moderate (conscious) sedation was administered by the endoscopy nurse and supervised by the endoscopist. The following parameters were monitored: oxygen saturation, heart rate, blood pressure, and response to care. Total physician intraservice time was 15 minutes. Scope In: 12:41:04 PM Scope Out: 12:46:37 PM Total Procedure Duration Time 0 hours 5 minutes 33 seconds Findings: The examined esophagus was normal. Red blood was found in the stomach. A single 5 mm no bleeding angiodysplastic lesion was found in the gastric body. Coagulation for hemostasis using heater probe was successful. Estimated blood loss was minimal. The third portion of the duodenum was normal. Impression: - Normal esophagus. - Red blood in the stomach. 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 Treated with a heater probe. - Normal third portion of the duodenum. - No specimens collected. Recommendation: - Discharge patient to home. - Resume previous diet. - Continue present medications. Procedure Code(s): --- Professional --- 16821, Esophagogastroduodenoscopy, flexible, transoral; with control of bleeding, any method 95465, 59, Moderate sedation services provided by the same physician or other qualified health child care assistant performing the diagnostic or therapeutic service that the sedation supports, requiring the presence of an independent trained observer to assist in the monitoring of the patient's level of consciousness and physiological status; initial 15 minutes of intraservice time, patient age 5 years or older CPT copyright 2017 [employer]. All rights reserved. The codes documented in this report are preliminary and upon social media strategist review may be revised to meet current compliance requirements. Keny Elena DO 09/29/2021 1:28:16 PM This report has been signed electronically. Number of Addenda: 1 Note Initiated On: 09/29/2021 12:25 PM Addendum Number: 1 Addendum Date: 03/22/2022 6:43:32 AM MAC was used as sedation for this procedure. Keny Elena DO 03/22/2022 6:43:38 AM This report has been signed electronically.
--- NOTE | 2021-09-29 13:29 | OP.CCLET_ITS ---
03/22/2022 Austin Singh Re : Upper GI endoscopy procedure for Bhavna Hinesr Samantha This procedure was performed on Wednesday, September 29, 2021. My impressions and recommendations are as follows: Impressions : - Normal esophagus. - Red blood in the stomach. 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 Treated with a heater probe. - Normal third portion of the duodenum. - No specimens collected. Recommendations : - Discharge patient to home. - Resume previous diet. - Continue present medications. My findings are described in the full procedure note, which is enclosed. If I can be of further assistance, please feel free to contact me at . Sincerely, Keny Elena, 09/29/2021 1:28:16 PM This report has been signed electronically.
--- NOTE | 2021-09-29 13:40 | OP.COLON_ITS ---
Patient Name: Bhavna Wong Procedure Date: 09/29/2021 12:47 PM Date of : 1945 Age: 76 Procedure: Colonoscopy Indications: This is the patient's first colonoscopy Providers: Keny Elena DO Medicines: See the Anesthesia note for documentation of the administered medications Patient Profile: This is a 76 year old female. Refer to note in patient chart for documentation of history and physical. Patient has symptoms of acute epigastric abdominal pain. Last Colonoscopy: none. The patient's first colonoscopy is today. Complications: No immediate complications. Procedure: Pre-Anesthesia Assessment: - Prior to the procedure, a History and Physical was performed, and patient medications and allergies were reviewed. The patient is competent. The risks and benefits of the procedure and the sedation options and risks were discussed with the patient. All questions were answered and informed consent was obtained. Patient identification and proposed procedure were verified by the physician in the pre-procedure area. Mental Status Examination: alert and oriented. Airway Examination: normal oropharyngeal airway and neck mobility. Respiratory Examination: clear to auscultation. CV Examination: normal. Prophylactic Antibiotics: The patient does not require prophylactic antibiotics. Prior Anticoagulants: The patient has taken no previous anticoagulant or antiplatelet agents. ASA Grade Assessment: II - A patient with mild systemic disease. After reviewing the risks and benefits, the patient was deemed in satisfactory condition to undergo the procedure. The anesthesia plan was to use moderate sedation / analgesia (conscious sedation). Immediately prior to administration of medications, the patient was re-assessed for adequacy to receive sedatives. The heart rate, respiratory rate, oxygen saturations, blood pressure, adequacy of pulmonary ventilation, and response to care were monitored throughout the procedure. The physical status of the patient was re-assessed after the procedure. - General anesthesia under the supervision of an anesthesiologist was determined to be medically necessary for this procedure based on review of the patient's medical history, medications, and prior anesthesia history. After I obtained informed consent, the scope was passed under direct vision. Throughout the procedure, the patient's blood pressure, pulse, and oxygen saturations were monitored continuously. The colonoscope was introduced through the anus and advanced to the terminal ileum. The colonoscopy was performed without difficulty. The patient tolerated the procedure well. The quality of the bowel preparation was good. Moderate Sedation: Moderate (conscious) sedation was administered by the endoscopy nurse and supervised by the endoscopist. The following parameters were monitored: oxygen saturation, heart rate, blood pressure, and response to care. Total physician intraservice time was 15 minutes. Scope In: 12:50:45 PM Scope Out: 1:11:28 PM Total Procedure Duration Time 0 hours 20 minutes 43 seconds Findings: The perianal and digital rectal examinations were normal. Multiple small and large-mouthed diverticula were found in the recto-sigmoid colon, sigmoid colon, descending colon and splenic flexure. There was no evidence of diverticular bleeding. Two sessile polyps were found in the sigmoid colon and ascending colon. The polyps were 1 to 2 mm in size. These polyps were removed with a hot snare. Resection and retrieval were complete. Verification of patient identification for the specimen was done. Estimated blood loss was minimal. A single medium-sized localized angiodysplastic lesion with stigmata of recent bleeding was found in the transverse colon. Coagulation for hemostasis using heater probe was successful. Estimated blood loss was minimal. Impression: - Severe diverticulosis in the recto-sigmoid colon, in the sigmoid colon, in the descending colon and at the splenic flexure. There was no evidence of diverticular bleeding. - Two 1 to 2 mm polyps in the sigmoid colon and in the ascending colon, removed with a hot snare. Resected and retrieved. - A single recently bleeding colonic angiodysplastic lesion. Treated with a heater probe. Recommendation: - Return patient to hospital [facility] for ongoing care. - Resume previous diet. - Continue present medications. - Await pathology results. - Repeat colonoscopy in 5 years for surveillance based on pathology results. Procedure Code(s): --- Professional --- 51419, 59, Colonoscopy, flexible; with control of bleeding, any method 69387, Colonoscopy, flexible; with removal of tumor(s), polyp(s), or other lesion(s) by snare technique 40752, 59, Moderate sedation services provided by the same physician or other qualified health critical care nurse practitioner performing the diagnostic or therapeutic service that the sedation supports, requiring the presence of an independent trained observer to assist in the monitoring of the patient's level of consciousness and physiological status; initial 15 minutes of intraservice time, patient age 5 years or older CPT copyright 2017 [employer] [place] [employer]. All rights reserved. The codes documented in this report are preliminary and upon manager quality compliance review may be revised to meet current compliance requirements. Keny Elena DO 09/29/2021 1:39:37 PM This report has been signed electronically. Number of Addenda: 1 Note Initiated On: 09/29/2021 12:47 PM Addendum Number: 1 Addendum Date: 03/22/2022 6:43:47 AM MAC was used as sedation for this procedure. Keny Elena DO 03/22/2022 6:43:51 AM This report has been signed electronically.
--- NOTE | 2021-09-29 13:40 | OP.CCLET_ITS ---
03/22/2022 Austin Singh Re : Colonoscopy procedure for Bhavna Wong Dear Samantha This procedure was performed on Wednesday, September 29, 2021. My impressions and recommendations are as follows: Impressions : - Severe diverticulosis in the recto-sigmoid colon, in the sigmoid colon, in the descending colon and at the splenic flexure. There was no evidence of diverticular bleeding. - Two 1 to 2 mm polyps in the sigmoid colon and in the ascending colon, removed with a hot snare. Resected and retrieved. - A single recently bleeding colonic angiodysplastic lesion. Treated with a heater probe. Recommendations : - Return patient to hospital [facility] for ongoing care. - Resume previous diet. - Continue present medications. - Await pathology results. - Repeat colonoscopy in 5 years for surveillance based on pathology results. My findings are described in the full procedure note, which is enclosed. If I can be of further assistance, please feel free to contact me at . Sincerely, Keny Elena, 09/29/2021 1:39:37 PM This report has been signed electronically.
[2021-09-29] MEDS: Allopurinol 100 MG Tablet 200 MG PO (14:29)
[2021-09-29] MEDS: 0.9% Saline Lock 10 ML Syringe IV (21:47)
[2021-09-30] VITALS (7 sets, daily range): BP systolic 91–112; BP diastolic 47–68; PULSE 81–113; RESP 16–18; TEMP 36.5–36.9; O2SAT 97–99
--- NOTE | 2021-09-30 06:09 | PCM.PN.INT ---
Assessment & Plan Assessment/Plan (1) Acute blood loss anemia: PLAN: RECOMMENDATIONS: 1. Transfuse additional blood products as ordered, given hemoglobin of 6.9 g/dL this morning. 2. Continue PPI therapy. 3. Continue to hold diuretics for now. Continue beta-jesus as ordered. 4. Potassium repletion as ordered. IMPRESSIONS: 1. Blood loss anemia The patient presented to the hospital with evidence of lower GI bleeding in the setting of systemic anticoagulation with Eliquis. The patient has received packed red blood cells along with supplemental IV fluid hydration. She remains hemodynamically stable. Her Eliquis has been discontinued. The patient was evaluated by GI and underwent upper and lower endoscopy. A single nonbleeding angiodysplastic lesion was noted in the stomach and was treated with a heater probe. In addition, severe diverticulosis was noted without any evidence of diverticular bleeding. Given the patient's hemoglobin has dropped to 6.9 g/dL this morning, will transfuse additional blood products. Continue PPI therapy. 2. Chronic atrial fibrillation Continue beta-jesus and hold diuretics. 3. Hypokalemia Electrolyte repletion as ordered. Recheck levels in the morning. 4. Hypertension/hyperlipidemia/GERD Complicates care, management, recovery and prognosis. Continue home medications as indicated. This note was generated with [employer] dictation software. It may contain incorrect words, spelling, and punctuation that were not noted in checking the note before signing. Subjective Subjective The patient was seen and examined at the bedside this morning. Events from the last 24 hours have been reviewed. The patient is currently afebrile, hemodynamically stable and maintaining appropriate oxygen saturations on room air. The patient underwent upper and lower endoscopy yesterday which revealed a single nonbleeding angiodysplastic lesion in the stomach which was treated with a heater probe. The patient was also noted to have severe diverticulosis without any evidence of diverticular bleeding. Hemoglobin has again dropped this morning to 6.9 g/dL. Objective Data Objective Data The patient's most recent lab work, culture data and imaging studies have all been personally reviewed. Surface echocardiogram demonstrated normal LV size and function with an ejection fraction of 55%. Pulmonary artery systolic pressure was estimated to be 36 mmHg. Vital Signs: Vital Signs Temp Pulse Resp BP Pulse Ox 98.4 F 113 H 16 111/47 L 98 09/30/21 04:42 09/30/21 04:42 09/30/21 04:42 09/30/21 04:42 09/30/21 04:42 Oxygen Flow Rate (L/min) 95 Oxygen Delivery Method Room Air Weight: 89.1 kg Body Mass Index (BMI) 36.8 Intake & Output: Intake and Output for Last 24 Hours 09/28/21 09/29/21 09/30/21 23:59 23:59 23:59 Intake Total 3850 / 3850 2290 / 2290 Output Total 800 / 800 300 / 300 Balance 3050 / 3050 1989 Lab / Micro Data Attestation: I reviewed the patient's lab results. Result Diagrams: 09/30/21 05:28 09/30/21 05:28 Micro: Microbiology 09/29/21 10:50 Nasal Secretion SARS-CoV-2 Antigen (Rapid) - Final Rhythm Strip Rhythm Strip: A-fib Rate: 115 Ectopy: None Physical Exam Const alert and no apparent distress General Appearance: cooperative HEENT normocephalic and head/scalp atraumatic Eyes PERRL and EOMs intact bilaterally Neck supple General: trachea midline Chest inspection of chest normal Resp Auscultation: Negative for rales, rhonchi or wheezes Cardio S1 normal heart sound and S2 normal heart sound Rhythm: abnormal rhythm GI normal to inspection, nondistended, normoactive bowel sounds Extremity no clubbing, cyanosis or edema Skin no rashes or lesions noted Neuro CN's II-XII intact bilaterally, moves all extremities and no focal motor deficits Psych cooperative and affect normal Charges/Coding Visit Charges Inpatient E&M: 85145 Subs Hosp L3
[2021-09-30 07:07] LABS: Absolute Lymphocyte Count 0.97 X10^3/uL (0.83-4.51); Absolute Neutrophil Count 8.1 X10^3/uL (2.0-7.7); Basophil# 0.03 X10^3/uL; Basophil% 0.3 % (0-1); Eosinophil# 0.11 X10^3/uL; Eosinophils% 1.1 % (0-5); Hematocrit 21.2 % (37-47); Hemoglobin 6.9 g/dL (12.0-15.0); Lymphocyte # 0.97 X10^3/ul (0.83-4.51); Lymphocyte % 9.7 % (19-41); Mean Corp Hgb Conc 32.5 g/dL (32-36); Mean Corpuscular Hgb 29.5 pg (27.0-32.0); Mean Corpuscular Volume 90.6 fL (81-99); Mean Platelet Vol. 9.1 fl (6.2-12.0); Monocyte# 0.63 X10^3/uL; Monocyte% 6.3 % (0-10); NRBC Flagged by Analyzer 0.6 % (0-5); Neutrophil # 8.08 X10^3/uL (2.7-7.7); Neutrophil % 80.9 % (47-70); Platelet Count 264 K/mm3 (150-450); RBC Distribution Width SD 56.9 fl (35.1-43.9); Red Blood Count 2.34 M/mm3 (4.2-5.4)
[2021-09-30 07:29] LABS: Anion Gap 6 (5-15); BUN 19 mg/dL (7-18); BUN/Creat Ratio 18.8 RATIO (10-20); Calcium,Total 7.8 mg/dL (8.5-10.1); Chloride 108 mmol/L (98-107); Creatinine, Serum 1.01 mg/dL (0.55-1.02); EST Glomerular Filtration Rate 57 mL/min (>60); Est Glom Filt Rate - Afr Amer 69 mL/min (>60); Estimated Creatinine Clearance 36.88 ml/min; Glucose 116 mg/dL (74-106); Potassium 3.4 mmol/L (3.5-5.1); Sodium Level 137 mmol/L (136-145)
[2021-09-30 09:37] LABS: Hematocrit 24.4 % (37-47); Hemoglobin 7.7 g/dL (12.0-15.0)
--- NOTE | 2021-09-30 09:43 | PCM.PROGNOTE ---
Subjective Subjective She is doing well without any bleeding overnight. She says she feels the best that she has felt since she has been here. She tolerated the diet. She did not have any bowel movements in the last 24 hours. Objective Data Objective Data Vital Signs: Vital Signs Temp Pulse Resp BP Pulse Ox 97.7 F L 104 H 18 105/65 99 09/30/21 09:28 09/30/21 09:28 09/30/21 09:28 09/30/21 09:28 09/30/21 09:28 Oxygen Flow Rate (L/min) 95 Oxygen Delivery Method Room Air Weight: 196 lb 6.91 oz Body Mass Index (BMI) 36.8 Intake & Output: Intake and Output for Last 24 Hours 09/28/21 09/29/21 09/30/21 23:59 23:59 23:59 Intake Total 3850 / 3850 2290 / 2290 98.75 / 98.75 Output Total 800 / 800 300 / 300 Balance 3050 / 3050 1989 / 1989 98.75 / 98.75 Lab / Micro Data Result Diagrams: 09/30/21 08:52 09/30/21 05:28 Labs: Laboratory Results - last 24 hr 09/27/21 22:20: Crossmatch See Detail 09/30/21 05:28: WBC 10.0, RBC 2.34 L, Hgb 6.9 L, Hct 21.2 L, MCV 90.6, MCH 29.5, MCHC 32.5, RDW Std Deviation 56.9 H, RDW Coeff of Bob 18.0 H, Plt Count 264, MPV 9.1, Immature Gran % (Auto) 1.700 H, Neut % (Auto) 80.9 H, Lymph % (Auto) 9.7 L, [place] % (Auto) 6.3, Eos % (Auto) 1.1, Baso % (Auto) 0.3, Absolute Neuts (auto) 8.1 H, Absolute Lymphs (auto) 0.97, Nucleated RBC % 0.6 09/30/21 05:28: Sodium 137, Potassium 3.4 L, Chloride 108 H, Carbon Dioxide 23.0, Anion Gap 6, BUN 19 H, Creatinine 1.01, Estim Creat Clear Calc 36.88, Est GFR (MDRD) Af Amer 69, Est GFR (MDRD) Non-Af 57 L, BUN/Creatinine Ratio 18.8, Glucose 116 H, Calcium 7.8 L 09/30/21 08:52: Hgb 7.7 L, Hct 24.4 L Micro: Microbiology 09/29/21 10:50 Nasal Secretion SARS-CoV-2 Antigen (Rapid) - Final Rhythm Strip Rhythm Strip: A-fib Rate: 115 Ectopy: None Physical Exam Const alert General Appearance: cooperative Orientation / Consciousness: oriented to person HEENT hearing grossly normal bilaterally Head and Scalp: normal to inspection Face and Sinus: face symmetric Nose: external nose normal Mouth: oral and palatal mucosa normal Eyes conjunctivae normal General Eye: normal appearance of both eyes Neck full ROM General: normal visual inspection Lymph Lymphatic: no lymphadenopathy noted Chest inspection of chest normal and palpation of chest normal Chest: symmetrical chest wall rise Resp normal respiratory effort Effort and Inspection: able to speak in complete sentences Cardio regular rate GI non-distended Percussion: normal to percussion Rectal Exam: deferred Neuro Speech: speech normal Gait (Neuro): normal gait Assessment & Plan Assessment/Plan (1) Acute blood loss anemia: PLAN: Acute blood loss anemia status post EGD and colonoscopy. She did have a small AVM that was treated in the stomach and another in the ascending colon. She also had adenomatous polyps that were removed. She is not having any signs of blood loss at this time. Her hemoglobin this morning was 6.8 which is down from 8.6. They are rechecking it to make sure it is true. Her BUN/creatinine ratio is improving which makes me think that she is not bleeding anywhere. However we need to confirm this. I told her if she does have hemoglobin is 6.8 she will need blood transfusion. She will need outpatient capsule endoscopy to see if there are any more AVMs present. Charges/Coding Visit Charges Inpatient E&M: 61724 Subs Hosp L2
--- NOTE | 2021-09-30 09:56 | PCM.DC.SUM ---
Providers Date of Admission: 09/27/21 Primary Care Physician: Dr. Austin Singh, Consultations 09/28/21 00:52 Consult: Gastroenterology Routine Consulting Provider: [facility] Reason for Consult: GI bleed, acute on chronic blood loss anemia EMERGENT Consult: No Notified: Yes Date Notified: 09/27/21 Time Notified: 23:25 Method of Notification: per ED. Consult: Pinking Machine Operator / Pulmonary Medicine Routine Consulting Provider: Yosef Strauss Reason for Consult: GI bleed, hypotension EMERGENT Consult: No Notified: Yes Date Notified: 09/27/21 Time Notified: 23:30 Method of Notification: cortext Reason For Visit: PAF W/ RVR, GI BLEED Diagnosis Discharge Diagnosis (1) Acute blood loss anemia: Status: Acute Code(s): D62 - Acute posthemorrhagic anemia Medications at Discharge Home Medications metoprolol tartrate 50 mg tablet 50 mg PO BID 04/14/19 spironolactone 50 mg tablet 50 mg PO QDAY #90 tab 01/19/21 furosemide 40 mg tablet 40 mg PO BID #180 tab 07/10/21 allopurinol 200 mg PO DAILY 09/27/21 pantoprazole [Protonix] 40 mg PO DAILY 09/28/21 Hospital Course Operations None Procedures Colonoscopy and EGD Summary of Care Provided Minutes Spent on Discharge: 45 Hospital Course: Patient is a 76-year-old female with past medical history as outlined was admitted through the ED on 09/28/2021 with a complaint of bright red blood per rectum started on day of presentation. She had associated abdominal cramping but no vomiting. She did have bright red blood per rectum again in the ED. On admission her hemoglobin was 10.3. Patient was noted to be on Eliquis for paroxysmal A. fib. She was also transiently hypotensive in the ED but this responded after she was given fluids. She was admitted and managed for acute lower GI bleed. Gastroenterology was consulted and her Eliquis held. She was initially admitted to the ICU and critical care was consulted. Of note, patient also went into A. fib with RVR. Her home dose of metoprolol was resumed and heart rate gradually became more controlled. She was placed on IV pantoprazole. EGD showed normal esophagus with red blood in the stomach and a single nonbleeding angiodysplastic lesion in the stomach which was treated with heater probe. Colonoscopy showed severe diverticulosis in the rectosigmoid colon, descending colon and splenic flexure with no evidence of diverticular bleed and also a 1 to 2 mm polyp in the sigmoid colon and in the ascending colon which was removed with a hot snare. This was sent for pathology. Patient remained stable after surgery. She was transferred out of the ICU. Hemoglobin level on the day of discharge was initially 6.9. However this was repeated and the repeat came back at 7.7. Hospitalist did discuss with her primary casting machine operator helper Dr. Lee about holding the Eliquis on discharge and plan was for patient to be off of Eliquis for at least a month until she followed up with cardiology to decide about resumption of Eliquis. Patient was counseled about her increased risk of stroke while off Eliquis but that this was counted by the increased risk of bleeding in light of her recent GI bleed whilst on Eliquis. She was agreeable to holding Eliquis for now. She is follow-up with her primary care doctor and gastroenterology as well as cardiology within 1 month. Patient seen and examined prior to discharge. She had no active complaints and felt well. Review of systems otherwise negative. Labs and vitals reviewed. Home medication reviewed and reconciled. Physical Exam Const alert, oriented x3 and no apparent distress General Appearance: cooperative, comfortable and well kempt Exam Limitations: no limitations HEENT normocephalic, head/scalp atraumatic, hearing grossly normal bilaterally and moist oral mucous membranes Eyes PERRL, EOMs intact bilaterally and conjunctivae normal Neck no lymphadenopathy Resp normal respiratory effort, no retractions, no use of accessory muscles and clear to auscultation bilaterally Cardio regular rate, regular rhythm, S1 normal heart sound, S2 normal heart sound and no murmurs GI normal to inspection, nondistended, normoactive bowel sounds, soft to palpation, non-tender and non-distended Extremity normal to inspection, full ROM and no clubbing, cyanosis or edema Skin no rashes or lesions noted Neuro oriented x3, CN's II-XII intact bilaterally and moves all extremities Sensorium / Orientation: awake and alert Psych affect normal Weight / BMI Weight Weight: 196 lb 6.91 oz Body Mass Index (BMI) 36.8 ABG / Lab / Microbiology Data Result Diagrams: 09/30/21 08:52 09/30/21 05:28 Laboratory: Laboratory Results - last 24 hr 09/27/21 22:20: Crossmatch See Detail 09/30/21 05:28: WBC 10.0, RBC 2.34 L, Hgb 6.9 L, Hct 21.2 L, MCV 90.6, MCH 29.5, MCHC 32.5, RDW Std Deviation 56.9 H, RDW Coeff of Bob 18.0 H, Plt Count 264, MPV 9.1, Immature Gran % (Auto) 1.700 H, Neut % (Auto) 80.9 H, Lymph % (Auto) 9.7 L, Randall % (Auto) 6.3, Eos % (Auto) 1.1, Baso % (Auto) 0.3, Absolute Neuts (auto) 8.1 H, Absolute Lymphs (auto) 0.97, Nucleated RBC % 0.6 09/30/21 05:28: Sodium 137, Potassium 3.4 L, Chloride 108 H, Carbon Dioxide 23.0, Anion Gap 6, BUN 19 H, Creatinine 1.01, Estim Creat Clear Calc 36.88, Est GFR (MDRD) Af Amer 69, Est GFR (MDRD) Non-Af 57 L, BUN/Creatinine Ratio 18.8, Glucose 116 H, Calcium 7.8 L 09/30/21 08:52: Hgb 7.7 L, Hct 24.4 L Microbiology: Microbiology 09/29/21 10:50 Nasal Secretion SARS-CoV-2 Antigen (Rapid) - Final D/C Instructions Discharge Diet: Low fat / Low cholesterol Discharge Activity: Return to Normal Activity Weight Bearing Status: Weight bearing as tolerated Call your doctor if you observe: Fever of 101 or Higher, Shortness of breath, Dizziness, Swelling in the ankles, Chest pain and Increased palpitations (irregular heartbeat) Meaningful Use Info Meaningful Use Diagnoses (Choose all that apply): None applicable Discharge Plan Admission Admit Date/Time: 09/27/21 23:22 Primary Reason for Your Visit: lower GI bleed Attending Provider: Margot Nix Primary Care Provider: Austin Singh Consulting Providers: Yosef Strauss Instructions Patient Instructions: Bleeding Gastrointestinal, Anemia Additional Instructions / Restrictions: eliquis discontinued for now, per discussion with Dr Lee. To decide about resuming it on follow up with Dr Lee in ~ 1 month. Discharge Orders/Prescriptions Prescriptions: Continued metoprolol tartrate 50 mg tablet 50 mg PO BID RF: 0 allopurinol 100 mg Tablet 200 mg PO DAILY RF: 0 pantoprazole [Protonix] 40 mg tablet,delayed release (DR/EC) 40 mg PO DAILY RF: 0 spironolactone 50 mg tablet 50 mg PO QDAY Qty: 90 RF: 3 furosemide [Lasix] 40 mg tablet 40 mg PO BID Qty: 180 RF: 3 Discontinued apixaban 2.5 mg tablet 2.5 mg PO BID Qty: 60 RF: 3 Referrals / Follow Up: Austin Singh DO [Primary Care Provider] - Within 2 Weeks Raghu Lee MD [STAFF PHYSICIAN] - Within 1 Month Keny Elena DO [STAFF PHYSICIAN] - Disposition Disposition (needs filled in before D/C Order can be placed): Home, Self Care Charges/Coding Visit Charges Inpatient E&M: 38020 Disch Hosp
[2021-09-30] MEDS: Allopurinol 100 MG Tablet 200 MG PO (10:43)
[2021-09-30] MEDS: Metoprolol Tartrate 50 MG Tablet PO (10:43)
[2021-09-30] MEDS: Potassium Chloride Oral Tablet 20 MEQ 40 MEQ PO (12:03)
== END 2021-09-30 16:11 | disposition home or self-care (01) | DRG 378 ==
LOC: ED 23:10 → ICU 23:59 → MS3 09-30 10:30 → ICU 10-02 10:20
PROVIDERS: Internal Medicine Gastroenterology; Admitting Provider Family Medicine; Emergency Provider Emergency Medicine; PCP Family Medicine; Visit Provider Student in an Organized Health Care Education/Training Program
PROC: 0DJD8ZZ Inspection of Lower Intestinal Tract, Via Natural or Artificial Opening Endoscopic (ICD-10-PCS; CPT 45378; principal; 2021-09-29 11:55)
DX: K31.811 Angiodysplasia of stomach and duodenum with bleeding (principal); D62 Acute posthemorrhagic anemia; I42.8 Other cardiomyopathies; I50.32 Chronic diastolic (congestive) heart failure; I48.11 Longstanding persistent atrial fibrillation; I11.0 Hypertensive heart disease with heart failure; I95.9 Hypotension, unspecified; K62.5 Hemorrhage of anus and rectum; K21.9 Gastro-esophageal reflux disease without esophagitis; E78.5 Hyperlipidemia, unspecified; E87.6 Hypokalemia; K57.30 Diverticulosis of large intestine without perforation or abscess without bleeding; D12.5 Benign neoplasm of sigmoid colon; D12.2 Benign neoplasm of ascending colon; E66.9 Obesity, unspecified; R73.9 Hyperglycemia, unspecified; Z68.37 Body mass index [BMI] 37.0-37.9, adult; Z96.651 Presence of right artificial knee joint; Z90.49 Acquired absence of other specified parts of digestive tract; Z79.01 Long term (current) use of anticoagulants; Z79.899 Other long term (current) drug therapy
CPT/HCPCS: 36415; 80048; 80053; 83036; 83735; 84443; 84484; 85014; 85018; 85025; 85027; 85610; 85730; 86850; 86900; 86901; 86920; 87426; 88305; 93005; 93306; 97110; 97162; 97166; 97530; 97535; 99251; 99285; J7030; J7040; J7050; P9016; A4216; G0463; J2405

== ENCOUNTER 2023-12-13 15:56 | Emergency (ER) | payer OTHER, SELFPAY ==
[2023-12-13 15:57] VITALS: BP 125/72; PULSE 88; RESP 18; TEMP 35.6; O2SAT 98; BMI 33.6
--- NOTE | 2023-12-13 16:06 | RAD_ITS ---
INDICATION: pain EXAMINATION/TECHNIQUE: X-RAY - LEFT XR Tibia/Fibula 2 Views 4 VIEWS COMPARISON: FINDINGS: SOFT TISSUES: Diffuse subcutaneous edema. Vascular calcifications. Soft tissue swelling medially at the ankle No radiopaque foreign body. BONES/JOINTS: There is a comminuted distal femoral shaft fracture. Deformity with flattening of the talus with limited evaluation .. No sclerotic or destructive changes observed. RAD/Tibia & Fibula 2 Views IMPRESSION: Comminuted distal femoral shaft fracture.. There is soft tissue edema. Deformity of the talus. Electronically Signed: Ian Keen DO at 17:14 EDT ,
--- NOTE | 2023-12-13 16:06 | RAD_ITS ---
INDICATION: pain EXAMINATION/TECHNIQUE: X-RAY - LEFT XR Femur 5 VIEWS COMPARISON: FINDINGS: SOFT TISSUES: Subcutaneous edema. No radiopaque foreign body. BONES/JOINTS: Comminuted distal femoral shaft fracture. Preservation of the joint space.. No sclerotic or destructive changes observed. RAD/Femur Min 2 Views IMPRESSION: Comminuted distal femoral shaft fracture extending to the femoral condyle. Electronically Signed: Ian Keen DO at 17:16 EDT ,
--- NOTE | 2023-12-13 16:07 | EDS_ITS ---
HPI History of Present Illness Chief Complaint: Fall Narrative Narrative: 78-year-old female presenting with left knee pain. She states over a rug and fell injuring her left knee. She feels like it is rotated externally. She was given fentanyl for pain prior to arrival and her pain is under control. Denies head injury or LOC. No numbness or tingling. [facility] Medical History (HFpEF) heart failure with preserved ejection fraction Chronic combined systolic and diastolic CHF (congestive heart failure) Longstanding persistent atrial fibrillation Obesity Non-ischemic cardiomyopathy Essential (primary) hypertension GI bleed (09/27/21) Acute blood loss anemia Atrial enlargement, bilateral Home Medications ?Medication ?Instructions ?Recorded ?Last Taken ?Type metoprolol tartrate 50 mg tablet 50 mg PO BID Check with primary 04/14/19 Unknown History doctor allopurinol 100 mg tablet 200 mg PO DAILY Check with primary 09/27/21 Unknown History doctor pantoprazole 40 mg tablet,delayed 40 mg PO DAILY Check with primary 09/28/21 Unknown History release (Protonix) doctor furosemide 40 mg tablet (Lasix) 40 mg PO BID diuretic #180 tabs 07/02/22 Unknown Rx apixaban 2.5 mg tablet (Eliquis) 2.5 mg PO BID 06/25/23 Unknown History spironolactone 50 mg tablet 50 mg PO QDAY #90 tabs 06/25/23 Unknown Rx Allergy/AdvReac Type Severity Reaction Status Date / Time warfarin (From Coumadin) Allergy rash Verified 06/25/23 16:06 Family History Father , age 68 from massive CO CAD (coronary artery disease) Sudden cardiac Mother CVA (cerebral vascular accident) Surgical History History of esophagogastroduodenoscopy (EGD) History of colonoscopy History of total right knee replacement History of total right knee replacement s/p vein surgery Social History Smoking Status: Never smoker second hand exposure: No alcohol intake: never substance use type: does not use caffeine: Yes ROS ROS ED Constitutional Constitutional ED: Denies chills, fever(s) or sweats Eyes Eyes: Denies blurry vision or change in vision ENT ENT ED: Denies ear pain or sore throat Cardiovascular Cardiovascular: Denies chest pain, palpitations or racing heartbeat Respiratory/Chest Respiratory/Chest: Denies cough, dyspnea or sputum Gastrointestinal Gastrointestinal: Denies abdominal pain, constipation, diarrhea, nausea or vomiting Genitourinary Genitourinary ED: Denies dysuria, hematuria or urinary frequency Musculoskeletal Musculoskeletal: Reports other Details: Pain over left patella ; Denies arthralgias, myalgias or neck pain Integumentary Reports other Details: Bruising noted inferior to the left knee. ; Denies abscess, Abrasions or rash Neurologic Neurologic: Denies headache(s), paresthesias or weakness Psychiatric Psychiatric: Denies anxiety, depression, suicidal ideation or suicidal thoughts Endocrine Endocrinology: Denies polydipsia or polyuria EXAM Physical Exam Const Vital Signs: 12/13/23 15:57 12/13/23 16:02 12/13/23 16:09 Temperature 96.1 F L Temperature Source Oral Pulse Rate 88 Respiratory Rate 18 Respiratory Effort Normal Normal Respiratory Depth Normal Respiratory Pattern Normal Normal Blood Pressure 125/72 H Blood Pressure Mean 89 Pulse Ox 98 Oxygen Delivery Method Room Air Room Air 12/13/23 17:39 12/13/23 19:00 Temperature Temperature Source Pulse Rate 80 97 Respiratory Rate 16 18 Respiratory Effort Respiratory Depth Respiratory Pattern Blood Pressure 115/61 135/85 H Blood Pressure Mean 79 101 Pulse Ox 99 95 Oxygen Delivery Method Room Air Positive well nourished General Appearance ED: NAD HEENT atraumatic and trauma Chest Wall inspection of chest normal Resp normal respiratory effort and clear to auscultation bilaterally Back/Spine normal to inspection Extremity Extremity Narrative: Left lower extremity looks externally rotated. Patellar tenderness and bruising noted inferior to the left knee. No tenderness to palpation over the left hip. Patient unable to lift left leg secondary to pain. Neurovascular intact. Neuro oriented x3 Psych mental status grossly normal Skin no wounds MDM MDM MDM Narrative Medical decision making narrative: Patient presenting with left knee pain. Differential includes femur fracture, knee dislocation, patellar fracture, quadriceps tendon rupture, patellar tendon rupture. Patient currently has pain controlled with secondary to fentanyl. Will obtain images of the left femur, left knee, left tib-fib. X-rays of the left femur show comminuted distal femoral shaft fracture extending into the femoral condyle interpretation. Radiology interpretation agrees. Tib-fib shows similar fracture however tib-fib is not broken. Discussed with Dr. Justice Duarte who recommended getting a CT which was done and showed a comminuted distal femoral shaft fracture extending into the medial aspect of the left femoral condyle. After he reviewed the CT he stated it was too complex for him to do here and recommended I send it to a trauma center. Discussed with patient and she is amenable to going [facility]. Her pain was controlled with morphine. CBC and BMP unremarkable. Knee immobilizer placed. Discussed with Dr. Napier from [facility] who is the ED physician. He recommended that I speak with orthopedics. The transfer line spoke to orthopedics and I did not receive a call back. They did accept the patient ER to ER. Patient Lucas in stable condition. Impression: 1. Mechanical fall 2. Comminuted left distal femur fracture Lab Data Attestation: I reviewed the patient's lab results. Labs: Laboratory Results - last 24 hr 12/13/23 17:19 WBC 12.9 H RBC 4.07 L Hgb 12.7 Hct 39.3 MCV 96.6 MCH 31.2 MCHC 32.3 RDW Std Deviation 49.7 H RDW Coeff of Bob 14.2 Plt Count 162 MPV 10.4 Immature Gran % (Auto) 0.600 Neut % (Auto) 87.2 H Lymph % (Auto) 7.3 L [place] % (Auto) 4.0 Eos % (Auto) 0.6 Baso % (Auto) 0.3 Absolute Neuts (auto) 11.3 H Absolute Lymphs (auto) 0.95 Nucleated RBC % 0 Sodium 135 L Potassium 3.7 Chloride 103 Carbon Dioxide 26.0 Anion Gap 6 BUN 46 H Creatinine 1.35 H Estim Creat Clear Calc 42.52 Est GFR (MDRD) Af Amer 49 L Est GFR (MDRD) Non-Af 41 L BUN/Creatinine Ratio 34.1 H Glucose 144 H Calcium 8.8 Radiography Diagnostic Testing: Clinical Impression(s) from Imaging Studies Femur X-Ray 12/13/23 16:06 IMPRESSION: Comminuted distal femoral shaft fracture extending to the femoral condyle. Electronically Signed: Ian Keen DO at 17:16 EDT Reading Location ID and State: [facility] / [place] Tel [phone], Service support , Tibia/Fibula X-Ray 12/13/23 16:06 IMPRESSION: Comminuted distal femoral shaft fracture.. There is soft tissue edema. Deformity of the talus. Electronically Signed: Ian Keen DO at 17:14 EDT , Chest X-Ray 12/13/23 16:35 IMPRESSION: Cardiomegaly. Electronically Signed: Ian Keen DO at 17:16 EDT , Lower Extremity CT 12/13/23 16:58 IMPRESSION: There is a comminuted distal femoral shaft fracture extending to the medial aspect of the lateral femoral condylar articular surface Electronically Signed: Ian Keen DO at 18:08 EDT , Discharge Plan Triage Chief Complaint: Fall ED Provider: Qasim Moreno Dx/Rx/DC Orders Prescriptions: No Action metoprolol tartrate 50 mg tablet 50 mg PO BID Eliquis 2.5 mg tablet 2.5 mg PO BID spironolactone 50 mg tablet 50 mg PO QDAY Qty: 90 3RF allopurinol 100 mg Tablet 200 mg PO DAILY pantoprazole [Protonix] 40 mg tablet,delayed release (DR/EC) 40 mg PO DAILY furosemide [Lasix] 40 mg tablet 40 mg PO BID Qty: 180 3RF Primary Care Provider: Austin Singh Referrals: Austin Singh DO [Primary Care Provider] - Print Language: Jamaican
--- NOTE | 2023-12-13 16:35 | RAD_ITS ---
INDICATION: pre op EXAMINATION/TECHNIQUE: X-RAY - XR Chest 1 View COMPARISON: FINDINGS: LINES/DEVICES: None. LUNGS: No consolidation, edema or effusion. No pneumothorax. MEDIASTINUM AND CARDIOVASCULAR STRUCTURES: Cardiac silhouette is enlarged. Central airways and mediastinal contour are unremarkable. BONES AND SOFT TISSUES: Unremarkable. RAD/Chest 1 View IMPRESSION: Cardiomegaly. Electronically Signed: Ian Keen DO at 17:16 EDT ,
--- NOTE | 2023-12-13 16:58 | CT_ITS ---
CT LEFT LOWER EXTREMITY WITH 3-D IMAGING CLINICAL INDICATION: knee pain TECHNIQUE: Axial CT images of the LEFT lower extremity was performed without IV contrast material. Coronal and sagittal reformats were provided. The protocol utilizes one or more of the following dose reduction techniques: automated exposure control, adjustment of mA and/or kV according to patient size,and/or use of iterative reconstruction technique. RADIATION DOSAGE (If Supplied By Facility): CTDIvol = ( 32.54 ) mGy, DLP = ( 1889.03 ) mGycm COMPARISON: FINDINGS: Old right pubic rami fractures. There is a comminuted distal femoral shaft fracture extending to the medial aspect of the lateral femoral condylar articular surface No lytic or blastic osseous masses. Soft Tissues: The deep soft tissue structures are unremarkable. The superficial soft tissues are unremarkable without evidence of edema, hematoma, or foreign body. CT/Extremity Lower without Contra IMPRESSION: There is a comminuted distal femoral shaft fracture extending to the medial aspect of the lateral femoral condylar articular surface Electronically Signed: Ian Keen DO at 18:08 EDT Reading Location ID and State: [facility] / [place] Tel [phone], Service support ,
[2023-12-13 17:28] LABS: Absolute Lymphocyte Count 0.95 X10^3/uL (0.83-4.51); Absolute Neutrophil Count 11.3 X10^3/uL (2.0-7.7); Basophil# 0.04 X10^3/uL; Basophil% 0.3 % (0-1); Eosinophil# 0.08 X10^3/uL; Eosinophils% 0.6 % (0-5); Hematocrit 39.3 % (37-47); Hemoglobin 12.7 g/dL (12.0-15.0); Lymphocyte # 0.95 X10^3/ul (0.83-4.51); Lymphocyte % 7.3 % (19-41); Mean Corp Hgb Conc 32.3 g/dL (32-36); Mean Corpuscular Hgb 31.2 pg (27.0-32.0); Mean Corpuscular Volume 96.6 fL (81-99); Mean Platelet Vol. 10.4 fl (6.2-12.0); Monocyte# 0.52 X10^3/uL; NRBC Flagged by Analyzer 0 % (0-5); Neutrophil # 11.26 X10^3/uL (2.7-7.7); Neutrophil % 87.2 % (47-70); Platelet Count 162 K/mm3 (150-450); RBC Distribution Width CV 14.2 % (11.6-14.6); RBC Distribution Width SD 49.7 fl (35.1-43.9); Red Blood Count 4.07 M/mm3 (4.2-5.4); White Blood Count 12.9 K/mm3 (4.4-11.0)
[2023-12-13 17:39] VITALS: BP 115/61; PULSE 80; RESP 16; O2SAT 99
[2023-12-13] MEDS: Ondansetron 4 MG/2 ML Vial IV (17:39)
[2023-12-13] MEDS: Morphine 4 MG/ML Syringe IV (17:39)
[2023-12-13 17:45] LABS: Anion Gap 6 (5-15); BUN 46 mg/dL (7-18); BUN/Creat Ratio 34.1 RATIO (10-20); Calcium,Total 8.8 mg/dL (8.5-10.1); Chloride 103 mmol/L (98-107); Creatinine, Serum 1.35 mg/dL (0.55-1.02); EST Glomerular Filtration Rate 41 mL/min (>60); Est Glom Filt Rate - Afr Amer 49 mL/min (>60); Estimated Creatinine Clearance 42.52 ml/min; Glucose 144 mg/dL (74-106); Potassium 3.7 mmol/L (3.5-5.1); Sodium Level 135 mmol/L (136-145)
[2023-12-13 19:00] VITALS: BP 135/85; PULSE 97; RESP 18; O2SAT 95
--- NOTE | 2023-12-13 19:22 | ED.RN ---
184: I called the hotel houseman Claudio for a knee immobilizer d/t none in department. I was informed the supervisor real estate office will bring one down.
[2023-12-13] MEDS: oxyCODONE 5 MG Tablet PO (20:12)
[2023-12-13 21:00] VITALS: BP 112/78; PULSE 87; RESP 16; O2SAT 98
[2023-12-13 21:47] VITALS: BP 146/77; PULSE 72; RESP 16; TEMP 36.6; O2SAT 95
--- NOTE | 2023-12-13 21:48 | ED.RN ---
2022: report [facility] ER nurseBerenice at this time.
== END 2023-12-13 23:00 | disposition short-term general hospital (02) ==
PROVIDERS: Emergency Provider Student in an Organized Health Care Education/Training Program; PCP Family Medicine; Visit Provider Student in an Organized Health Care Education/Training Program
DX: S72.352A Displaced comminuted fracture of shaft of left femur, initial encounter for closed fracture (principal); S72.432A Displaced fracture of medial condyle of left femur, initial encounter for closed fracture; I50.42 Chronic combined systolic (congestive) and diastolic (congestive) heart failure; I11.0 Hypertensive heart disease with heart failure; I48.11 Longstanding persistent atrial fibrillation; I42.8 Other cardiomyopathies; W18.09XA Striking against other object with subsequent fall, initial encounter; E66.9 Obesity, unspecified; Z79.01 Long term (current) use of anticoagulants; Z79.899 Other long term (current) drug therapy; Z96.651 Presence of right artificial knee joint
CPT/HCPCS: 71045; 73552; 73590; 73700; 80048; 85025; 96374; 96375; 99285; A4216; J2405